=== PATIENT | male | born 1945 | race Caucasian/White ===

== ENCOUNTER → 2016-06-29 | Outpatient (CLI) | payer OTHER, MEDICARE ==
[~2016-06-29] MED LIST: AML/5 PO; AMLH550 PO; ASPI81TA28 PO; CLOP1TAB15 PO; GLC/500 PO; GLC500 PO; METO50TA7 PO; NTRGSL/4 UT; OXYC-57 PO; RIVA1TAB4 PO; SILO8CAP PO; SIMV40TA2 PO; URC10 PO; XRL15 PO
--- NOTE | 2016-06-29 13:23 | DIAGNOSTIC IMAGING REPORT ---
KUB CLINICAL HISTORY: N52.9 Impotence, [id number] nephrocalcinosis COMPARISON STUDY: 09/27/2015. FINDINGS: Bilateral nephrocalcinosis essentially unchanged prior study. No significant paravertebral calcifications. Several pelvic vascular calcifications unchanged. Considerable degenerative change of the hips bilaterally. This is similar. IMPRESSION: Left and to a lesser extent right-sided nephrocalcinosis. No change from the prior study. Unchanging significant degenerative change of the hips Electronically signed by: Kendall Anand M.D. 06/29/2016 1:22 PM Dictated Date/Time: 06/29/2016 1:21 PM
[2016-06-29 14:24] LABS: % FREE PSA 21.7 %; FREE PSA 1.92 ng/ml; PROSTATE SPECIFIC ANTIGEN 8.86 ng/ml (0.000-4.000)
--- NOTE | 2016-07-04 06:33 | CODING QUERY MEDICAL NECESSITY ---
SUPPORTING DIAGNOSIS NEEDED Dr. Haines, A supporting diagnosis is required for the test/procedure performed on this patient in order for us to be reimbursed by the patient's insurance. Please provide a supporting diagnosis for the following test/procedure listed below next to the test name along with your signature. *If there is no additional diagnosis for this patient that would support the following test/procedure please document that below next to the test/procedure. Test(s)/Procedure(s) that require a supporting diagnosis: * [id number] PSA DIAGNOSIS: DATE OF SERVICE: 06/29/16 Provider Signature: Date: Thank you Evgeny Warren [facility] Information Management Once completed, please kindly fax back to [phone] For questions please call [phone]
== END | disposition home or self-care (01) ==
LOC: C.RAD 12:39
PROVIDERS: ATTEND Urology
DX: N52.9 Male erectile dysfunction, unspecified (principal); E83.59 Other disorders of calcium metabolism; N29 Other disorders of kidney and ureter in diseases classified elsewhere; R97.20 Elevated prostate specific antigen [PSA]; N40.1 Benign prostatic hyperplasia with lower urinary tract symptoms

== ENCOUNTER 2016-10-09 17:09 | Inpatient (IN) | payer OTHER, MEDICARE ==
[~2016-10-09] VITALS: Ht 165.1 cm; Wt 75.4 kg
[~2016-10-09 17:09] MED LIST changes: -AML/5 PO; -ASPI81TA28 PO; -GLC/500 PO; -OXYC-57 PO; -RIVA1TAB4 PO; -SILO8CAP PO; -URC10 PO; -XRL15 PO
[2016-10-09 17:46] LABS: BASO % 0.2 %; BASO ABS # 0.01 K/uL (0-0.2); COMPLETE YES; EOS % 1.5 %; HEMATOCRIT 41.2 % (42-52); IG% 0.2 %; LYMPH % 19.5 %; LYMPH ABS # 1.02 K/uL (1.2-3.4); MEAN CELL VOLUME 85.7 fL (80-100); MEAN CORPUSCULAR HEMOGLOBIN 29.5 pg (25-34); MEAN CORPUSCULAR HGB CONC 34.5 g/dl (32-36); MONO % 8.6 %; PLATELET COUNT 180 K/uL (130-400); RED BLOOD COUNT 4.81 M/uL (4.7-6.1); WHITE BLOOD COUNT 5.22 K/uL (4.8-10.8)
[2016-10-09 17:47] LABS: ISTAT CREATININE 0.9 mg/dl (0.6-1.3); ISTAT HEMOGLOBIN 13.9 g/dl (14.0-18.0); ISTAT IONIZED CALCIUM 1.16 mmol/l (1.12-1.32)
[2016-10-09 17:54] LABS: POINT OF CARE TROPONIN I < 0.030 ng/ml (0-0.045)
[2016-10-09] MEDS ORDERED: SODIUM CHLORIDE 0.9% 1000ML 1,000 ML IV STA (17:55)
[2016-10-09 17:57] LABS: PROTHROMBIN TIME (PATIENT) 10.2 SECONDS (9.0-12.0)
[2016-10-09] MEDS ORDERED: OPTIRAY 320 IV PRN (18:00)
--- NOTE | 2016-10-09 18:04 | EMERGENCY ROOM VISIT NOTE ---
History Report prepared by Gil: Kanwal Hough Under the Supervision of: Dr. Maryellen Orozco D.O. First contact with patient: 17:13 Chief Complaint: CHEST PAIN Stated Complaint: CHEST PAIN Nursing Triage Summary: triage note Right sided chest pain, worse with inspiration. Sent by PCP for evaluation. History of Present Illness The patient is a 70 year old male who presents to the Emergency Room with complaints of intermittent right chest and rib pain that began 1 week ago. The patient states that his pain is worsened with deep inspiration, but denies any change of pain with position. He states that he has tried taking aspirin and Aleve without relief of his symptoms. The patient describes his pain as a sharp pain. He states that several weeks ago he had a right hip replacement done in the [facility]. The patient states that he has been going to physical therapy since the surgery. He additionally notes a history of a previous [place] with a heart catheterization. The patient states that he consulted his PCP and was sent to the emergency department for further evaluation and treatment. He denies any recent cough, cold, flu-like symptoms, dizziness, diaphoresis, headache, nausea, or vomiting. The patient states that he is on Plavix. Source of History: patient Onset: 1 week ago Position: chest (right), other (right rib) Quality: sharp Timing: intermittent Modifying Factors (Worsening): other (deep inspiration) Associated Symptoms: No headache, No diaphoresis, No cough, No nausea, No vomiting Review of Systems See HPI for pertinent positives & negatives. A total of 10 systems reviewed and were otherwise negative. Past Medical & Surgical Medical Problems: (1) Asthma (2) Diabetes (3) Elevated troponin I level (4) Heart disease (5) Status post right hip replacement Family History Diabetes mellitus Heart disease Kidney stones Social History Smoking Status: Never Smoker Smokeless Tobacco Use: No Alcohol Use: occasionally Marital Status: Housing Status: lives with family Occupation Status: employed Current/Historical Medications Scheduled Amiloride HCl (Amiloride HCl), 5 MG PO DAILY Aspirin (Aspirin Ec), 81 MG PO QPM Clopidogrel (Plavix), 75 MG PO DAILY Metformin Hcl (Glucophage), 500 MG PO BID Metoprolol Succ (Toprol Xl) (Toprol-Xl), 50 MG PO DAILY Nitroglycerin (Nitrostat), 0.4 MG UT PRN Potassium Citrate (Potassium Citrate), 10 MEQ PO QPM Silodosin (Rapaflo), 1 CAP PO QPM Simvastatin (Zocor), 40 MG PO QPM Allergies Coded Allergies: No Known Allergies (Unverified , 10/09/16) Physical Exam Vital Signs Date Time Temp Pulse Resp B/P (MAP) Pulse Ox O2 Delivery O2 Flow Rate FiO2 10/09/16 20:28 84 20 142/82 93 Room Air 10/09/16 20:00 82 20 157/84 94 Room Air 10/09/16 19:07 80 20 142/77 96 Room Air 10/09/16 17:44 83 10/09/16 17:34 86 20 162/85 96 Room Air 10/09/16 17:33 96 Room Air 10/09/16 17:12 36.7 87 16 161/85 97 Room Air Physical Exam GENERAL: alert, well appearing, well nourished, no distress, non-toxic EYE EXAM: normal conjunctiva, PERRL and EOM's grossly intact OROPHARYNX: no exudate, no erythema, lips, buccal mucosa, and tongue normal and mucous membranes are moist NECK: supple, no nuchal rigidity, no adenopathy, non-tender CHEST WALL: No crepitus, no bruising, no stepoff. LUNGS: Clear to auscultation. Normal chest wall mechanics HEART: no murmurs, S1 normal and S2 normal ABDOMEN: abdomen soft, non-tender, normo-active bowel sounds, no masses, no rebound or guarding. BACK: Back is symmetrical on inspection and there is no deformity, no midline tenderness, no CVA tenderness. SKIN: no rashes and no bruising UPPER EXTREMITIES: upper extremities are grossly normal. LOWER EXTREMITIES: Well healed incision on lateral aspect of the right hip from recent surgery. No pitting edema. NEURO EXAM: Normal sensorium, cranial nerves II-XII grossly intact, normal speech, no gross weakness of arms, no gross weakness of legs. Medical Decision & Procedures ER Provider Diagnostic Interpretation: CT:Per my review, radiologist interpretation. CHEST CTA for PULMONARY ARTERIES CT DOSE: 359.33 mGy.cm HISTORY: Atypical chest pain. TECHNIQUE: Multiaxial CT images of the chest were performed following the intravenous administration of contrast to evaluate the pulmonary arteries. Maximal intensity projection images were also obtained. COMPARISON STUDY: Chest CT 07/30/2015. FINDINGS: Normal caliber thoracic aorta with no evidence for dissection. The main pulmonary arteries are patent. There are few small filling defects seen within the segmental branches of the right middle lobe and right lower lobe consistent with pulmonary emboli. Peripheral wedge-shaped consolidation within the lateral segment of the right middle lobe consistent with a pulmonary infarct. Patchy consolidation of the bases of the bilateral lower lobes posteriorly favor atelectasis. There is a small right pleural effusion. No pneumothorax. The central airways are patent. The visualized liver and spleen are unremarkable. Left-sided nephrolithiasis. No mediastinal or hilar lymphadenopathy. IMPRESSION: 1. Pulmonary emboli seen within the segmental branches of the right middle lobe and right lower lobe. There is an associated wedge-shaped consolidation within the right middle lobe consistent with a pulmonary infarct. 2. Small right pleural effusion. 3. Bilateral lower lobe posterior densities favor atelectasis. Electronically signed by: Waldemar Pop M.D. 10/09/2016 7:14 PM Laboratory Results 10/09/16 17:25 Red Blood Count 4.81, Mean Corpuscular Volume 85.7, Mean Corpuscular Hemoglobin 29.5, Mean Corpuscular Hemoglobin Concent 34.5, Mean Platelet Volume 10.0, Neutrophils (%) (Auto) 70.0, Lymphocytes (%) (Auto) 19.5, Monocytes (%) (Auto) 8.6, Eosinophils (%) (Auto) 1.5, Basophils (%) (Auto) 0.2, Neutrophils # (Auto) 3.65, Lymphocytes # (Auto) 1.02, Monocytes # (Auto) 0.45, Eosinophils # (Auto) 0.08, Basophils # (Auto) 0.01 10/09/16 17:25 Test 10/09/16 17:25 10/09/16 17:34 10/09/16 17:35 10/09/16 19:29 White Blood Count 5.22 K/uL (4.8-10.8) Red Blood Count 4.81 M/uL (4.7-6.1) Hemoglobin 14.2 g/dL (14.0-18.0) Hematocrit 41.2 % (42-52) Mean Corpuscular Volume 85.7 fL (80-100) Mean Corpuscular Hemoglobin 29.5 pg (25-34) Mean Corpuscular Hemoglobin Concent 34.5 g/dl (32-36) Platelet Count 180 K/uL (130-400) Mean Platelet Volume 10.0 fL (7.4-10.4) Neutrophils (%) (Auto) 70.0 % Lymphocytes (%) (Auto) 19.5 % Monocytes (%) (Auto) 8.6 % Eosinophils (%) (Auto) 1.5 % Basophils (%) (Auto) 0.2 % Neutrophils # (Auto) 3.65 K/uL (1.4-6.5) Lymphocytes # (Auto) 1.02 K/uL (1.2-3.4) Monocytes # (Auto) 0.45 K/uL (0.11-0.59) Eosinophils # (Auto) 0.08 K/uL (0-0.5) Basophils # (Auto) 0.01 K/uL (0-0.2) RDW Standard Deviation 42.6 fL (36.4-46.3) RDW Coefficient of Variation 13.6 % (11.5-14.5) Immature Granulocyte % (Auto) 0.2 % Immature Granulocyte # (Auto) 0.01 K/uL (0.00-0.02) Prothrombin Time 10.2 SECONDS (9.0-12.0) Prothromb Time International Ratio 1.0 (0.9-1.1) D-Dimer 1020 ug/L FEU (0-500) Est Creatinine Clear Calc Drug Dose 64.5 ml/min Estimated GFR () 87.8 Estimated GFR (Non- 75.8 BUN/Creatinine Ratio 20.0 (10-20) Calcium Level 8.8 mg/dl (8.5-10.1) Total Bilirubin 0.4 mg/dl (0.2-1) Aspartate Amino Transf (AST/SGOT) 21 U/L (15-37) Alanine Aminotransferase (ALT/SGPT) 31 U/L (12-78) Alkaline Phosphatase 89 U/L (45-117) Pro-B-Type Natriuretic Peptide 206 pg/ml (0-900) Total Protein 7.2 gm/dl (6.4-8.2) Albumin 3.2 gm/dl (3.4-5.0) Globulin 4.0 gm/dl (2.5-4.0) Albumin/Globulin Ratio 0.8 (0.9-2) Lipase 102 U/L (73-393) Bedside Hemoglobin 13.9 g/dl (14.0-18.0) Bedside Hematocrit 41 % (42-52) Bedside D-Dimer > 450 ng/mlFEU (0-450) Bedside Sodium 140 mEq/L (135-144) Bedside Potassium 3.8 mEq/L (3.3-5.0) Bedside Chloride 101 mEq/L (101-112) Bedside Total CO2 28 mEq/l (24-31) Anion Gap 16.0 mmol/L (16-25) Bedside Blood Urea Nitrogen 20 mg/dl (7-18) Bedside Creatinine 0.9 mg/dl (0.6-1.3) Bedside Glucose (other) 89 mg/dl (70-99) Bedside Ionized Calcium (Jesus) 1.16 mmol/l (1.12-1.32) Bedside Troponin I < 0.030 ng/ml (0-0.045) Activated Partial Thromboplast Time 25.9 SECONDS (21.0-31.0) Partial Thromboplastin Ratio 1.0 Lactic Acid Level 0.6 mmol/L (0.4-2.0) Laboratory results per my review. Medications Administered Medications (Trade) Dose Ordered Sig/Flora Route Start Time Stop Time Status Last Admin Dose Admin Sodium Chloride 1,000 ml @ 250 mls/hr Q4H STAT IV 10/09/16 17:55 10/09/16 21:55 DC 10/09/16 17:55 250 MLS/HR Heparin Sodium/ Dextrose (Heparin 25,000 Unit/500ml D5W) 25,000 unit STK-MED ONCE .ROUTE 10/09/16 20:30 10/09/16 20:31 DC 10/09/16 20:30 25,000 UNIT ECG Indication: chest pain Rate (beats per minute): 82 Rhythm: sinus rhythm Findings: Q waves (leads 3 and AVF), no acute ischemic change, no ectopy, other (normal axis, normal intervals, low voltage) ED Course 1723: The patient was evaluated in room A9B. A complete history and physical exam was performed. 1754: Ordered Sodium Chloride 1000 ml @ 250 mls/hr IV. 0: I reevaluated the patient and he is resting comfortably. I discussed the exam findings with him and I discussed the treatment plan. He verbalized complete understanding and agreement. He will be evaluated for further treatment. 1953: I discussed the patients case with KARON Ventura. He will evaluate the patient for further treatment, but would like Dopplers of the lower extremities, and Lovenox started. 2016: After discussion Dr. Mena, the patient was found to have an elevated troponin from the lab, although the point of care troponin initially was negative. It was decided that the Lovenox would be stopped and Heparin would be given. Heparin Sodium/Dextrose 1 ea NA. Pt hemodynamically stable. 2030: Ordered Heparin Sodium Dextrose 77296 unit .route. Medical Decision Differential diagnoses includes but is not limited to acute coronary syndrome, myocardial infarction, pericarditis, pulmonary embolus, aortic dissection, pneumonia, pneumothorax, musculoskeletal, shingles, esophageal. Medication Reconciliation: I attest that I have personally reviewed the patient' s current medication list. Blood pressure screening: Patient was found to have an elevated blood pressure and was referred to their primary doctor for recheck and further treatment. Patient well-appearing here in his head symptoms for several days. Patient hemodynamically stable, initial [id number] troponin negative, EKG without dynamic changes, and dimer elevated. CT angiography revealed multiple PEs with pulmonary infarct. Patient declined pain medication here. Patient admitted to medicine for additional evaluation and initial decision was started on Lovenox, however after lab results and a positive troponin, patient started on a heparin drip. Patient aware of all results and need for close follow-up and additional testing. Patient will need to have cardiology consult given prior history of [place] and stenting concurrent use of antiplatelet and now need for anticoagulation. Dopplers of the patient's lower extremities ordered. No other evidence of concurrent infection, normal renal function noted. Doubt ACS , however given elevated troponin concern for possible right heart strain. Consults Time Called: 1946 Consulting Physician: KARON Ventura Returned Call: 1953 I discussed the patients case with KARON Ventura. He will evaluate the patient for further treatment, but would like Dopplers of the lower extremities, and Lovenox started. Impression Primary Impression: Pulmonary emboli Additional Impressions: Pulmonary infarct Right-sided chest pain Pleuritic chest pain Critical Care I have personally spent greater than 35 minutes of critical care time in the direct management of this patient. This includes bedside care, interpretation of diagnostic studies, and testing, discussion with consultants, patient, and family members, and other required patient management activities. This 35 minutes is in excess of all separately billable procedures. involved systems: cardiovascular, pulmonary Scribe Attestation The scribe's documentation has been prepared under my direction and personally reviewed by me in its entirety. I confirm that the note above accurately reflects all work, treatment, procedures, and medical decision making performed by me. Departure Information Dispostion Being Evaluated By Hospitalist Referrals Maycol Sloan M.D. (PCP) Problem Qualifiers Primary Impression: Pulmonary emboli Pulmonary embolism type: other Chronicity: acute Acute cor pulmonale presence: without acute cor pulmonale Qualified Codes: I26.99 - Other pulmonary embolism without acute cor pulmonale
[2016-10-09 18:10] LABS: CALCIUM 8.8 mg/dl (8.5-10.1); CREATININE 0.99 mg/dl (0.60-1.40); POTASSIUM 3.8 mmol/L (3.5-5.1)
[2016-10-09] MEDS ORDERED: AML/5 PO (18:15)
[2016-10-09] MEDS ORDERED: GLC/500 PO (18:16)
[2016-10-09] MEDS ORDERED: ASPI81TA28 PO (18:18)
[2016-10-09 18:19] LABS: ALB/GLOB RATIO 0.8 (0.9-2)
[2016-10-09] MEDS ORDERED: SILO8CAP PO (18:20)
[2016-10-09] MEDS ORDERED: URC10 PO (18:22)
--- NOTE | 2016-10-09 19:16 | DIAGNOSTIC IMAGING REPORT ---
CHEST CTA for PULMONARY ARTERIES CT DOSE: 359.33 mGy.cm HISTORY: Atypical chest pain. TECHNIQUE: Multiaxial CT images of the chest were performed following the intravenous administration of contrast to evaluate the pulmonary arteries. Maximal intensity projection images were also obtained. COMPARISON STUDY: Chest CT 07/30/2015. FINDINGS: Normal caliber thoracic aorta with no evidence for dissection. The main pulmonary arteries are patent. There are few small filling defects seen within the segmental branches of the right middle lobe and right lower lobe consistent with pulmonary emboli. Peripheral wedge-shaped consolidation within the lateral segment of the right middle lobe consistent with a pulmonary infarct. Patchy consolidation of the bases of the bilateral lower lobes posteriorly favor atelectasis. There is a small right pleural effusion. No pneumothorax. The central airways are patent. The visualized liver and spleen are unremarkable. Left-sided nephrolithiasis. No mediastinal or hilar lymphadenopathy. IMPRESSION: 1. Pulmonary emboli seen within the segmental branches of the right middle lobe and right lower lobe. There is an associated wedge-shaped consolidation within the right middle lobe consistent with a pulmonary infarct. 2. Small right pleural effusion. 3. Bilateral lower lobe posterior densities favor atelectasis. Electronically signed by: Waldemar Pop M.D. 10/09/2016 7:14 PM Dictated Date/Time: 10/09/2016 7:08 PM
[2016-10-09] MEDS ORDERED: ENOXAPARIN 1 MG/KG SQ STA (19:54)
[2016-10-09] MEDS ORDERED: ENOXAPARIN 80 MG/0.8 ML SYR SQ SCH (20:00)
[2016-10-09] MEDS ORDERED: HEPARIN 25000 UNIT/500 ML D5W ONE (20:30)
[2016-10-09] MEDS ORDERED: ACETAMINOPHEN 325 MG TAB PO PRN (21:00)
[2016-10-09] MEDS ORDERED: ONDANSETRON INJ 2 MG/ML 2 ML VIAL IV PRN (21:00)
[2016-10-09] MEDS ORDERED: ZOLPIDEM TARTRATE 5 MG TAB PO PRN (21:00)
[2016-10-09] MEDS ORDERED: SILODOSIN PO SCH (21:00)
[2016-10-09] MEDS ORDERED: NITROGLYCERIN 0.4 MG SL PER TAB CHARGE SL PRN (21:00)
--- NOTE | 2016-10-09 21:14 | History and Physical ---
History & Physical Date & Time of Service: Oct 09, 2016 at 21:01 Chief Complaint: Chest Pain Primary Care Physician: Maycol Sloan M.D. History of Present Illness Source: patient The patient is a 70-year-old male who presents to the emergency department at the referral from his PCP when he complained of intermittent right-sided chest pain and rib cage pain, that worsens with deep inspiration, and that began about one week prior to arrival. He underwent a right total hip arthroplasty in the [facility] [place] several weeks ago, he has been undergoing physical therapy since that time. He reports taking aspirin and Aleve have not helped his chest pain symptoms. 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 He does not have any sick exposures. He does upon questioning report some intermittent muscle cramps in his legs over the past several weeks, but no signs of lower extremity swelling. Past Medical/Surgical History Medical Problems: (1) Asthma Status: Chronic (2) Diabetes Status: Chronic (3) Heart disease Status: Chronic (4) Status post right hip replacement Status: Resolved Family History Diabetes mellitus Heart disease Kidney stones Social History Smoking Status: Never Smoker Smokeless Tobacco Use: No Alcohol Use: none Drug Use: none Marital Status: Housing status: lives with family Occupational Status: employed Multi-Drug Resistant Organisms History of MDRO: No Allergies Coded Allergies: No Known Allergies (Unverified , 10/09/16) Home Medications Scheduled Amiloride HCl (Amiloride HCl), 5 MG PO DAILY Aspirin (Aspirin Ec), 81 MG PO QPM Clopidogrel (Plavix), 75 MG PO DAILY Metformin Hcl (Glucophage), 500 MG PO BID Metoprolol Succ (Toprol Xl) (Toprol-Xl), 50 MG PO DAILY Nitroglycerin (Nitrostat), 0.4 MG UT PRN Potassium Citrate (Potassium Citrate), 10 MEQ PO QPM Silodosin (Rapaflo), 1 CAP PO QPM Simvastatin (Zocor), 40 MG PO QPM Review of Systems The patient denies palpitations, cough, lower extremity swelling, sore throat , fevers, chills, sweats, weight change, fatigue, nausea, vomiting, abdominal pain, pelvic pain, blood in urine or stool, dysuria, urinary frequency or urgency, lightheadedness, dizziness, headache, memory loss, rash, abnormal bruising or bleeding, imbalance, focal or generalized weakness, numbness or tingling in arms or legs, neck pain, night sweats, or allergy symptoms. The review of systems is otherwise negative other than for that already noted above, and at least 10 systems have been reviewed. Physical Exam Vital Signs Date Time Temp Pulse Resp B/P (MAP) Pulse Ox O2 Delivery O2 Flow Rate FiO2 10/09/16 19:07 80 20 142/77 96 Room Air 10/09/16 17:44 83 10/09/16 17:34 86 20 162/85 96 Room Air 10/09/16 17:33 96 Room Air 10/09/16 17:12 36.7 87 16 161/85 97 Room Air The patient is awake, well-developed and adequately nourished, alert and oriented 3, normocephalic and atraumatic, lying in bed and in no acute distress. HEENT--PERRL, EOMI, mucous membranes and oropharynx normal. Neck--supple, no JVD or bruits, thyroid normal, trachea midline, no adenopathy. Heart--normal S1 and S2, no extra beats, no murmurs, rubs or gallops. Lungs--decreased breath sounds at the bases bilaterally, no respiratory distress , no accessory muscle use. Abdomen--normal bowel sounds and soft, nontender and nondistended, no hernias or masses, no organomegaly. Extremities--no cyanosis, clubbing or edema. There are good distal pulses b/l. Dermatologic--normal skin turgor, normal color, warm and dry, no abnormal lymph nodes, no rash. Neurologic--cranial nerves II through XII grossly intact, motor and sensory examination normal. Rheumatologic--normal range of motion, nontender, muscles and joints. Psychiatric--normal affect. Diagnostics Laboratory Results Results Past 24 Hours Test 10/09/16 17:25 10/09/16 17:34 10/09/16 19:29 10/09/16 20:53 Range/Units White Blood Count 5.22 4.8-10.8 K/uL Red Blood Count 4.81 4.7-6.1 M/uL Hemoglobin 14.2 14.0-18.0 g/dL Hematocrit 41.2 42-52 % Mean Corpuscular Volume 85.7 80-100 fL Mean Corpuscular Hemoglobin 29.5 25-34 pg Mean Corpuscular Hemoglobin Concent 34.5 32-36 g/dl Platelet Count 180 130-400 K/uL Mean Platelet Volume 10.0 7.4-10.4 fL Neutrophils (%) (Auto) 70.0 % Lymphocytes (%) (Auto) 19.5 % Monocytes (%) (Auto) 8.6 % Eosinophils (%) (Auto) 1.5 % Basophils (%) (Auto) 0.2 % Neutrophils # (Auto) 3.65 1.4-6.5 K/uL Lymphocytes # (Auto) 1.02 1.2-3.4 K/uL Monocytes # (Auto) 0.45 0.11-0.59 K/uL Eosinophils # (Auto) 0.08 0-0.5 K/uL Basophils # (Auto) 0.01 0-0.2 K/uL RDW Standard Deviation 42.6 36.4-46.3 fL RDW Coefficient of Variation 13.6 11.5-14.5 % Immature Granulocyte % (Auto) 0.2 % Immature Granulocyte # (Auto) 0.01 0.00-0.02 K/uL Prothrombin Time 10.2 9.0-12.0 SECONDS Prothromb Time International Ratio 1.0 0.9-1.1 D-Dimer 1020 0-500 ug/L FEU Sodium Level 139 136-145 mmol/L Potassium Level 3.8 3.5-5.1 mmol/L Chloride Level 104 98-107 mmol/L Carbon Dioxide Level 27 21-32 mmol/L Anion Gap 8.0 16.0 16-25 mmol/L Blood Urea Nitrogen 20 7-18 mg/dl Creatinine 0.99 0.60-1.40 mg/dl Est Creatinine Clear Calc Drug Dose 64.5 ml/min Estimated GFR () 87.8 Estimated GFR (Non- 75.8 BUN/Creatinine Ratio 20.0 10-20 Random Glucose 86 70-99 mg/dl Calcium Level 8.8 8.5-10.1 mg/dl Total Bilirubin 0.4 0.2-1 mg/dl Aspartate Amino Transf (AST/SGOT) 21 15-37 U/L Alanine Aminotransferase (ALT/SGPT) 31 12-78 U/L Alkaline Phosphatase 89 45-117 U/L Troponin I 0.048 0-0.045 ng/ml Pro-B-Type Natriuretic Peptide 206 0-900 pg/ml Total Protein 7.2 6.4-8.2 gm/dl Albumin 3.2 3.4-5.0 gm/dl Globulin 4.0 2.5-4.0 gm/dl Albumin/Globulin Ratio 0.8 0.9-2 Lipase 102 73-393 U/L Bedside Hemoglobin 13.9 14.0-18.0 g/dl Bedside Hematocrit 41 42-52 % Bedside D-Dimer > 450 0-450 ng/mlFEU Bedside Sodium 140 135-144 mEq/L Bedside Potassium 3.8 3.3-5.0 mEq/L Bedside Chloride 101 101-112 mEq/L Bedside Total CO2 28 24-31 mEq/l Bedside Blood Urea Nitrogen 20 7-18 mg/dl Bedside Creatinine 0.9 0.6-1.3 mg/dl Bedside Glucose (other) 89 70-99 mg/dl Bedside Ionized Calcium (Jesus) 1.16 1.12-1.32 mmol/l Bedside Troponin I < 0.030 0-0.045 ng/ml Lactic Acid Level 0.6 0.4-2.0 mmol/L Creatine Kinase MB Ratio 0-3.0 Diagnostic Radiology Patient Name: VANDANA BERMUDEZ Unit Number: [id number] Dictated: 10/09/161907 Transcribed: 10/09/161907 [employer] Printed Date/Time: [~ rep prt dt]/[~ rep prt tm] [~ rep ct labl] - [~ rep ct ivnm] [facility] [place] [address] Dictated: 10/09/161907 Transcribed: 10/09/161907 [employer] Printed Date/Time: [~ rep prt dt]/[~ rep prt tm] [~ rep ct labl] - [~ rep ct ivnm] [~ rep ct add3]] CHEST CTA for PULMONARY ARTERIES CT DOSE: 359.33 mGy.cm HISTORY: Atypical chest pain. TECHNIQUE: Multiaxial CT images of the chest were performed following the intravenous administration of contrast to evaluate the pulmonary arteries. Maximal intensity projection images were also obtained. COMPARISON STUDY: Chest CT 07/30/2015. FINDINGS: Normal caliber thoracic aorta with no evidence for dissection. The main pulmonary arteries are patent. There are few small filling defects seen within the segmental branches of the right middle lobe and right lower lobe consistent with pulmonary emboli. Peripheral wedge-shaped consolidation within the lateral segment of the right middle lobe consistent with a pulmonary infarct. Patchy consolidation of the bases of the bilateral lower lobes posteriorly favor atelectasis. There is a small right pleural effusion. No pneumothorax. The central airways are patent. The visualized liver and spleen are unremarkable. Left-sided nephrolithiasis. No mediastinal or hilar lymphadenopathy. IMPRESSION: 1. Pulmonary emboli seen within the segmental branches of the right middle lobe and right lower lobe. There is an associated wedge-shaped consolidation within the right middle lobe consistent with a pulmonary infarct. 2. Small right pleural effusion. 3. Bilateral lower lobe posterior densities favor atelectasis. Electronically signed by: Waldemar Pop M.D. 10/09/2016 7:14 PM Dictated Date/Time: 10/09/2016 7:08 PM The status of this report is Signed. Draft = Not yet reviewed or approved by Radiologist. Signed = Reviewed and approved by Radiologist. <AttendingPhy></AttendingPhy> <FamilyPhy>Maycol Sloan M.D.</FamilyPhy> < PrimaryPhy>Maycol Sloan M.D.</PrimaryPhy> <UnitNumber>[id number]</UnitNumber> <VisitNumber>[id number]</VisitNumber> <PatientName>VANDANA BERMUDEZ</PatientName> < DateOfBirth>1945</DateOfBirth> <Location>[facility]</Location> <ServiceDate></ServiceDate> <MNE>ESINDI</MNE> <OrderingPhy>Pam Maryellen Rhiannon DO</ OrderingPhy> <OrderingPhyMNE>f rep ord dr romero</OrderingPhyMNE> <DictatingPhyMNE> f rep dict dr romero</DictatingPhyMNE> <CCListMNE>f rep ct heather</CCListMNE> < AdmittingPhyMNE>f pt admit dr romero</AdmittingPhyMNE> <AttendingPhyMNE>f pt attend dr romero</AttendingPhyMNE> <ConsultingPhyMNE>f pt consult dr romero</ConsultingPhyMNE> <FamilyPhyMNE>f pt fam dr romero</FamilyPhyMNE> <OtherPhyMNE>f pt other dr romero</OtherPhyMNE> < PrimaryPhyMNE>f pt prim care dr romero</PrimaryPhyMNE> <ReferringPhyMNE>f pt referring dr romero</ReferringPhyMNE> EKG EKG shows normal sinus rhythm at 82 bpm, new inferior wall ME compared to 2013. There are ST segment depressions in leads V3 greater than V4. Impression Assessment and Plan Right middle lobe and right lower lobe pulmonary embolism/right middle lobe pulmonary infarct--the patient will be admitted to the telemetry unit and will be started on IV heparin standard dose, no bolus, due to additional concerns of right heart strain manifesting as elevated troponin. His pleuritic chest pain has caused decreased inspiratory effort leading to atelectasis bilaterally, and the patient has been encouraged to take deeper breaths, which we will be aided by controlling his pain. CAD/hypertension/elevated troponin/right heart strain secondary to pulmonary emboli and infarcts--the patient will be started on IV heparin as noted. We'll continue aspirin 81 mg by mouth daily, clopidogrel 75 mg by mouth daily, amiloride 5 mg by mouth daily, and metoprolol succinate 50 mg by mouth daily. He'll be followed on telemetry for serial cardiac enzymes, cardiac rhythm monitoring and a 2-D echocardiogram with Dopplers. Diabetes mellitus--hold metformin 500 mg by mouth twice a day, placed on Accu- Cheks before meals and at bedtime with NovoLog coverage. Hypercholesterolemia--continue simvastatin 40 mg by mouth every evening. BPH--formulary interchange for Rapaflo. Level of Care Telemetry Advanced Directives Existing Advance Directive: No Existing Living Will: No Existing Power of Maintenance Director: No Resuscitation Status FULL RESUSCITATION VTE Prophylaxis VTE Risk Assessment Done? Y/N: Yes Risk Level: Moderate Given or contraindicated: Other Anticoagulation (IV heparin standard dose no bolus) Social Service Consult None Apply
[2016-10-09 22:00] VITALS: BP 158/86; PULSE 76; TEMP 36.7; O2SAT 96; Ht 165.1 cm; Wt 75.4 kg
[2016-10-09 22:40] LABS: CKMB/CK RATIO 1.7 (0-3.0)
[2016-10-09 23:22] VITALS: BP 163/80; PULSE 81; TEMP 36.3; O2SAT 97
[2016-10-10] VITALS (8 sets, daily range): BP systolic 130–165; BP diastolic 69–85; PULSE 66–72; TEMP 36.4–36.7; O2SAT 95–98
[2016-10-10] MEDS: SIMVASTATIN 40 MG TAB PO SCH ×2 (00:35→19:39)
[2016-10-10] MEDS: ASPIRIN 81 MG ECTAB PO SCH ×2 (00:35→19:39)
[2016-10-10] MEDS: POTASSIUM CITRATE 10 MEQ TAB PO SCH ×2 (00:35→19:39)
[2016-10-10 02:49] LABS: PARTIAL THROMBOPLASTIN RATIO 1.5; PROTHROMBIN TIME (PATIENT) 10.5 SECONDS (9.0-12.0)
[2016-10-10] MEDS ORDERED: HEPARIN IV BOLUS 5,000 UNIT in SYRINGE 0 ML IV ONE (03:30)
[2016-10-10] MEDS: HEPARIN 25,000 UNIT/500ML D5W 500 ML IV PRN ×2 (04:17→12:37)
[2016-10-10 05:01] LABS: BASO % 0.2 %; BASO ABS # 0.01 K/uL (0-0.2); COMPLETE YES; EOS % 3.1 %; HEMATOCRIT 39.5 % (42-52); IG% 0.2 %; LYMPH % 26.5 %; MEAN CELL VOLUME 86.1 fL (80-100); MEAN CORPUSCULAR HEMOGLOBIN 27.7 pg (25-34); MEAN CORPUSCULAR HGB CONC 32.2 g/dl (32-36); MEAN PLATELET VOLUME 10.2 fL (7.4-10.4); MONO % 8.4 %; NEUT % 61.6 %; PLATELET COUNT 155 K/uL (130-400); RED BLOOD COUNT 4.59 M/uL (4.7-6.1); WHITE BLOOD COUNT 4.53 K/uL (4.8-10.8)
[2016-10-10 05:48] LABS: CKMB/CK RATIO 2.7 (0-3.0); CREATININE 0.65 mg/dl (0.60-1.40); MAGNESIUM 2.2 mg/dl (1.8-2.4)
--- NOTE | 2016-10-10 07:57 | DIAGNOSTIC IMAGING REPORT ---
BILATERAL LOWER EXTREMITY VENOUS DOPPLER CLINICAL HISTORY: Pulmonary emboli. COMPARISON STUDY: No previous studies for comparison. TECHNIQUE: Sonography of the deep venous system of the bilateral lower extremities was performed. Compression and augmentation were evaluated. FINDINGS: The bilateral common femoral, superficial femoral and popliteal veins were compressible. Augmentation was normal. Flow was shown within the deep calf vessels. IMPRESSION: No evidence of deep venous thrombus within the bilateral lower extremities. Electronically signed by: Stan Humphreys M.D. 10/10/2016 7:56 AM Dictated Date/Time: 10/10/2016 7:55 AM
[2016-10-10] MEDS ORDERED: NURSING VERBAL MED ORDER ONE (08:15)
[2016-10-10] MEDS ORDERED: CLOPIDOGREL BISULFATE 75 MG TAB PO SCH (09:00)
[2016-10-10] MEDS ORDERED: METOPROLOL SUCC 50MG EXT REL TAB PO SCH (09:00)
[2016-10-10] MEDS ORDERED: AMILORIDE HCL 5 MG TAB PO SCH (09:00)
--- NOTE | 2016-10-10 09:40 | Clinical Documentation Query ---
CLINICAL DOCUMENTATION QUERY 70 year old male RML and RUL PE's with pulmonary infarct. In your clinical opinion is this patient being managed for: (x ) PE WITH acute right heart strain by elevated troponin's representing right heart strain treated with O2, Heparin gtt, Echo, & Cardiology consult ( ) Other explanation of clinical findings (Please Explain) ( ) Unable to determine (Please Define) ( ) Need to Discuss ( ) Not Agree The medical record reflects the following clinical findings, treatment, and risk factors. Clinical Indicators: As above. Troponin's 0.048, 0.046, 0.061. H&P stating, "CAD/hypertension/elevated troponin/right heart strain secondary to pulmonary emboli and infarcts." Treatment: Heparin gtt, Echo, Cardiology consult, Risk Factors: PE Please clarify and document your clinical opinion in the progress notes and discharge summary. Terms such as "probable", "suspected", "likely", "questionable", "possible", or "still to be ruled out" are acceptable. IF IN AGREEMENT, YOU MUST DOCUMENT ABOVE DIAGNOSTIC STATEMENT IN DAILY PROGRESS NOTES AND DISCHARGE SUMMARY. This document is not part of the patient's record. Thank You, Harjeet Avila, RN [phone]
--- NOTE | 2016-10-10 11:23 | Hospitalist Progress Note ---
Hospitalist Progress Note Date of Service Oct 10, 2016. Subjective Pt evaluation today including: conversation w/ patient, physical exam, chart review, lab review, review of studies, review of inpatient medication list Voiding: no voiding problems, no incontinence Patient states he is feeling well. He is eating and drinking OK. Patient denies any fever, chills, sweats, lightheadedness, dizziness, vision changes, CP, palpitations, edema, SOB, wheezing, cough, abdominal pain, nausea, vomiting, diarrhea, urinary symptoms, melena, numbness/tingling, weakness, muscle/joint pain, anxiety/depression, active bleeding, or new skin discoloration/changes. Medications Current Inpatient Medications Medications (Trade) Dose Ordered Sig/Flora Route Start Time Stop Time Status Last Admin Dose Admin Ioversol (Optiray 320) 100 ml UD PRN IV 10/09/16 18:00 10/13/16 17:59 Acetaminophen (Tylenol Tab) 650 mg Q4H PRN PO 10/09/16 21:00 11/08/16 20:59 Zolpidem Tartrate (Ambien Tab) 5 mg HSZ PRN PO 10/09/16 21:00 11/08/16 20:59 Nitroglycerin (Nitrostat Tab) 0.4 mg UD PRN SL 10/09/16 21:00 11/08/16 20:59 Ondansetron HCl (Zofran Inj) 4 mg Q6H PRN IV 10/09/16 21:00 11/08/16 20:59 Aspirin (Ecotrin Tab) 81 mg QPM PO 10/09/16 21:00 11/08/16 20:59 10/10/16 00:35 81 MG Clopidogrel Bisulfate (plAVix TAB) 75 mg DAILY PO 10/10/16 09:00 11/09/16 08:59 10/10/16 07:59 75 MG Metoprolol Succinate (Toprol Xl Tab) 50 mg DAILY PO 10/10/16 09:00 11/09/16 08:59 10/10/16 07:59 50 MG Potassium Citrate (Urocit-K Tab) 10 meq QPM PO 10/09/16 21:00 11/08/16 20:59 10/10/16 00:35 10 MEQ Simvastatin (Zocor Tab) 40 mg QPM PO 10/09/16 21:00 11/08/16 20:59 10/10/16 00:35 40 MG Amiloride HCl (Amiloride HCl) 5 mg DAILY PO 10/10/16 09:00 11/09/16 08:59 10/10/16 08:01 5 MG Heparin Sodium/ Dextrose 500 ml @ 29 mls/hr [id number] PRN IV 10/09/16 22:00 11/08/16 21:59 10/10/16 04:17 29 MLS/HR Miscellaneous Information (Order Awaiting Action) 1 ea QS N/A 10/10/16 00:00 11/09/16 00:00 Objective Vital Signs Date Time Temp Pulse Resp B/P (MAP) Pulse Ox O2 Delivery O2 Flow Rate FiO2 10/10/16 08:00 Room Air 10/10/16 07:35 36.7 72 20 165/85 (111) 95 10/10/16 04:20 97 Room Air 10/10/16 04:11 36.7 68 20 135/75 (95) 96 Room Air 10/10/16 00:10 97 Room Air 10/10/16 00:00 96 Room Air 10/09/16 23:22 36.3 81 20 163/80 (107) 97 Room Air 10/09/16 22:00 36.7 76 18 158/86 96 Room Air 10/09/16 21:36 79 20 145/81 95 10/09/16 21:01 76 20 144/85 96 Room Air 10/09/16 20:28 84 20 142/82 93 Room Air 10/09/16 20:00 82 20 157/84 94 Room Air 10/09/16 19:07 80 20 142/77 96 Room Air 10/09/16 17:44 83 10/09/16 17:34 86 20 162/85 96 Room Air 10/09/16 17:33 96 Room Air 10/09/16 17:12 36.7 87 16 161/85 97 Room Air Physical Exam General Appearance: WD/WN, no apparent distress Eyes: normal inspection, PERRL ENT: hearing grossly normal Neck: supple Respiratory/Chest: lungs clear, no respiratory distress, no accessory muscle use, + decreased breath sounds (at bilateral lung bases ) Cardiovascular: regular rate, rhythm Abdomen: normal bowel sounds, non tender, soft Extremities: no pedal edema, no calf tenderness Neurologic/Psychiatric: alert, normal mood/affect, oriented x 3 Skin: normal color, warm/dry, no rash Laboratory Results Last 24 Hours Test 10/09/16 17:25 10/09/16 17:34 10/09/16 17:35 10/09/16 19:29 White Blood Count 5.22 K/uL Red Blood Count 4.81 M/uL Hemoglobin 14.2 g/dL Hematocrit 41.2 % Mean Corpuscular Volume 85.7 fL Mean Corpuscular Hemoglobin 29.5 pg Mean Corpuscular Hemoglobin Concent 34.5 g/dl Platelet Count 180 K/uL Mean Platelet Volume 10.0 fL Neutrophils (%) (Auto) 70.0 % Lymphocytes (%) (Auto) 19.5 % Monocytes (%) (Auto) 8.6 % Eosinophils (%) (Auto) 1.5 % Basophils (%) (Auto) 0.2 % Neutrophils # (Auto) 3.65 K/uL Lymphocytes # (Auto) 1.02 K/uL Monocytes # (Auto) 0.45 K/uL Eosinophils # (Auto) 0.08 K/uL Basophils # (Auto) 0.01 K/uL RDW Standard Deviation 42.6 fL RDW Coefficient of Variation 13.6 % Immature Granulocyte % (Auto) 0.2 % Immature Granulocyte # (Auto) 0.01 K/uL Prothrombin Time 10.2 SECONDS Prothromb Time International Ratio 1.0 D-Dimer 1020 ug/L FEU Sodium Level 139 mmol/L Potassium Level 3.8 mmol/L Chloride Level 104 mmol/L Carbon Dioxide Level 27 mmol/L Anion Gap 8.0 mmol/L 16.0 mmol/L Blood Urea Nitrogen 20 mg/dl Creatinine 0.99 mg/dl Est Creatinine Clear Calc Drug Dose 64.5 ml/min Estimated GFR () 87.8 Estimated GFR (Non- 75.8 BUN/Creatinine Ratio 20.0 Random Glucose 86 mg/dl Calcium Level 8.8 mg/dl Total Bilirubin 0.4 mg/dl Aspartate Amino Transf (AST/SGOT) 21 U/L Alanine Aminotransferase (ALT/SGPT) 31 U/L Alkaline Phosphatase 89 U/L Troponin I 0.048 ng/ml Pro-B-Type Natriuretic Peptide 206 pg/ml Total Protein 7.2 gm/dl Albumin 3.2 gm/dl Globulin 4.0 gm/dl Albumin/Globulin Ratio 0.8 Lipase 102 U/L Bedside Hemoglobin 13.9 g/dl Bedside Hematocrit 41 % Bedside D-Dimer > 450 ng/mlFEU Bedside Sodium 140 mEq/L Bedside Potassium 3.8 mEq/L Bedside Chloride 101 mEq/L Bedside Total CO2 28 mEq/l Bedside Blood Urea Nitrogen 20 mg/dl Bedside Creatinine 0.9 mg/dl Bedside Glucose (other) 89 mg/dl Bedside Ionized Calcium (Jesus) 1.16 mmol/l Bedside Troponin I < 0.030 ng/ml Activated Partial Thromboplast Time 25.9 SECONDS Partial Thromboplastin Ratio 1.0 Lactic Acid Level 0.6 mmol/L Test 10/09/16 21:24 10/10/16 02:30 10/10/16 04:45 10/10/16 10:48 Total Creatine Kinase 54 U/L 48 U/L Creatine Kinase MB 0.9 ng/ml 1.3 ng/ml Creatine Kinase MB Ratio 1.7 2.7 Troponin I 0.046 ng/ml 0.061 ng/ml Prothrombin Time 10.5 SECONDS Prothromb Time International Ratio 1.0 Activated Partial Thromboplast Time 39.2 SECONDS Partial Thromboplastin Ratio 1.5 White Blood Count 4.53 K/uL Red Blood Count 4.59 M/uL Hemoglobin 12.7 g/dL Hematocrit 39.5 % Mean Corpuscular Volume 86.1 fL Mean Corpuscular Hemoglobin 27.7 pg Mean Corpuscular Hemoglobin Concent 32.2 g/dl Platelet Count 155 K/uL Mean Platelet Volume 10.2 fL Neutrophils (%) (Auto) 61.6 % Lymphocytes (%) (Auto) 26.5 % Monocytes (%) (Auto) 8.4 % Eosinophils (%) (Auto) 3.1 % Basophils (%) (Auto) 0.2 % Neutrophils # (Auto) 2.79 K/uL Lymphocytes # (Auto) 1.20 K/uL Monocytes # (Auto) 0.38 K/uL Eosinophils # (Auto) 0.14 K/uL Basophils # (Auto) 0.01 K/uL RDW Standard Deviation 42.9 fL RDW Coefficient of Variation 13.6 % Immature Granulocyte % (Auto) 0.2 % Immature Granulocyte # (Auto) 0.01 K/uL Sodium Level 142 mmol/L Potassium Level 4.0 mmol/L Chloride Level 107 mmol/L Carbon Dioxide Level 29 mmol/L Anion Gap 6.0 mmol/L Blood Urea Nitrogen 18 mg/dl Creatinine 0.65 mg/dl Est Creatinine Clear Calc Drug Dose 97.4 ml/min Estimated GFR () 112.7 Estimated GFR (Non- 97.2 BUN/Creatinine Ratio 28.0 Random Glucose 110 mg/dl Magnesium Level 2.2 mg/dl Assessment and Plan The patient is a 70-year-old male who presents to the emergency department at the referral from his PCP when he complained of intermittent right-sided chest pain and rib cage pain, that worsens with deep inspiration, and that began about one week prior to arrival. He underwent a right total hip arthroplasty in the [facility] [place][Note 2] several weeks ago, he has been undergoing physical therapy since that time. Right middle lobe and right lower lobe pulmonary embolism/right middle lobe pulmonary infarct/elevated troponin/right heart strain secondary to pulmonary emboli and infarcts: - Admitted to [facility] for cardiac monitoring- no acute events - Trend cardiac enzymes - Continue Nitrostat PRN - IV Heparin standard dose -- Discussed w/ patient about transitioning to oral anticoagulation- prefers novel agent vs Coumadin -- d/c Heparin- begin Xarelto 15 mg PO BID x21 days, then 20 mg daily-- start 3-4 hours after d/cing Heparin - Venous Doppler- No evidence of deep venous thrombus within the bilateral lower extremities - Continue ASA 81 mg daily and Plavix 75 mg daily - ECHO pending - Consult cardiology, appreciate recommendations- follows w/ Dr. Du CAD s/p stent placement/HTN: Continue ASA 81 mg daily, Plavix 75 mg daily, Amiloride 5 mg daily, Potassium citrate 10 mEq daily, Metoprolol succinate 50 mg daily Diabetes mellitus: - Hold Metformin 500 mg BID - BSG ACHS w/ SSI Hypercholesterolemia: Continue Simvastatin 40 mg HS BPH: Rapaflo 8 mg HS DVT prophylaxis: IV Heparin Code Status: LEVEL I, FULL Dispo: From home- no discharge needs anticipated
[2016-10-10 11:28] LABS: PARTIAL THROMBOPLASTIN RATIO 2.2
[2016-10-10 12:57] LABS: CALCIUM 8.4 mg/dl (8.5-10.1)
[2016-10-10] MEDS ORDERED: XRL15 PO (13:33)
[2016-10-10 13:35] LABS: CKMB/CK RATIO 2.2 (0-3.0)
--- NOTE | 2016-10-10 13:38 | Discharge Instructions ---
Discharge Instructions Date of Service Oct 10, 2016. Admission Reason for Admission: Elevated Troponin I Level, Pulmonary Infarct Discharge Discharge Diagnosis / Problem: (1) Pulmonary emboli (2) Pulmonary infarct VTE Date & Time Date of VTE Diagnosis: Oct 09, 2016 Time of VTE Diagnosis: 19:00 Discharge Goals Goal(s): Decrease discomfort, Learn about illness, Diagnostic testing, Therapeutic intervention, Prevent Disease Progression Activity Recommendations Activity Limitations: resume your previous activity . Instructions / Follow-Up Instructions / Follow-Up New medications: 1. Xarelto 15 mg by mouth twice per day for 21 days (last day 10/30/16), then 20 mg by mouth once daily This medication is an anticoagulant (blood thinner) used to treat your pulmonary embolism (lung clot) You will start this medication the morning of 10/11- we have given you the first home dose- you will need to case picker your prescription tomorrow morning/ afternoon Please eat with medication Resume all other regular home medications Please follow-up with your PCP within 5-7 days Please follow-up with Cardiology as instructed by Dr. Du Please follow-up/keep all of your subspecialty appointments Medication Instructions: Your condition is typically treated with an anticoagulant. Anticoagulants will thin your blood to help prevent new clots. * You should take her medication exactly as directed. * Never skip a dose. * Never take a double dose. If you miss a dose, take it as soon as you remember. Call your Primary Care doctor if you experience any of the following: * Swelling or Pain in your leg * Sudden, continuous pain deep in a muscle * Pain that worsens when you are active or when you stand still for a long time * Chest Pain * Sudden Shortness of Breath * Rapid or pounding heart beat * Fainting * Dizziness * Cough with blood or bloody sputum * Sweating more than normal * Bruises * Heavy or uncontrolled bleeding * Blood in your urine, stool or vomit * Black or tarry stools Caring for Your Self at Home: * Avoid sitting, standing or lying down for long periods without moving your legs and feet * When traveling by car, stop to get out and move around at least once every 3 hours * On long airplane, train or bus rides, get up and move around when possible * If you can't get up, wiggle your toes and tighten your calves to keep your blood moving Follow Up: It is important for you to keep your follow up appointments with your medical provider. Current Hospital Diet Patient's current hospital diet: AHA Diet (Heart Healthy) Discharge Diet Recommended Diet: AHA Diet (Heart Healthy), Diabetes Type 2 Diet Procedures Procedures Performed: Chest CTA Venous Doppler Echocardiogram Pending Studies Studies pending at discharge: no Laboratory Results Last 24 Hours Test 10/09/16 17:25 10/09/16 17:34 10/09/16 17:35 10/09/16 19:29 White Blood Count 5.22 K/uL Red Blood Count 4.81 M/uL Hemoglobin 14.2 g/dL Hematocrit 41.2 % Mean Corpuscular Volume 85.7 fL Mean Corpuscular Hemoglobin 29.5 pg Mean Corpuscular Hemoglobin Concent 34.5 g/dl Platelet Count 180 K/uL Mean Platelet Volume 10.0 fL Neutrophils (%) (Auto) 70.0 % Lymphocytes (%) (Auto) 19.5 % Monocytes (%) (Auto) 8.6 % Eosinophils (%) (Auto) 1.5 % Basophils (%) (Auto) 0.2 % Neutrophils # (Auto) 3.65 K/uL Lymphocytes # (Auto) 1.02 K/uL Monocytes # (Auto) 0.45 K/uL Eosinophils # (Auto) 0.08 K/uL Basophils # (Auto) 0.01 K/uL RDW Standard Deviation 42.6 fL RDW Coefficient of Variation 13.6 % Immature Granulocyte % (Auto) 0.2 % Immature Granulocyte # (Auto) 0.01 K/uL Prothrombin Time 10.2 SECONDS Prothromb Time International Ratio 1.0 D-Dimer 1020 ug/L FEU Sodium Level 139 mmol/L Potassium Level 3.8 mmol/L Chloride Level 104 mmol/L Carbon Dioxide Level 27 mmol/L Anion Gap 8.0 mmol/L 16.0 mmol/L Blood Urea Nitrogen 20 mg/dl Creatinine 0.99 mg/dl Est Creatinine Clear Calc Drug Dose 64.5 ml/min Estimated GFR () 87.8 Estimated GFR (Non- 75.8 BUN/Creatinine Ratio 20.0 Random Glucose 86 mg/dl Calcium Level 8.8 mg/dl Total Bilirubin 0.4 mg/dl Aspartate Amino Transf (AST/SGOT) 21 U/L Alanine Aminotransferase (ALT/SGPT) 31 U/L Alkaline Phosphatase 89 U/L Troponin I 0.048 ng/ml Pro-B-Type Natriuretic Peptide 206 pg/ml Total Protein 7.2 gm/dl Albumin 3.2 gm/dl Globulin 4.0 gm/dl Albumin/Globulin Ratio 0.8 Lipase 102 U/L Bedside Hemoglobin 13.9 g/dl Bedside Hematocrit 41 % Bedside D-Dimer > 450 ng/mlFEU Bedside Sodium 140 mEq/L Bedside Potassium 3.8 mEq/L Bedside Chloride 101 mEq/L Bedside Total CO2 28 mEq/l Bedside Blood Urea Nitrogen 20 mg/dl Bedside Creatinine 0.9 mg/dl Bedside Glucose (other) 89 mg/dl Bedside Ionized Calcium (Jesus) 1.16 mmol/l Bedside Troponin I < 0.030 ng/ml Activated Partial Thromboplast Time 25.9 SECONDS Partial Thromboplastin Ratio 1.0 Lactic Acid Level 0.6 mmol/L Test 10/09/16 21:24 10/10/16 02:30 10/10/16 04:45 10/10/16 10:48 Total Creatine Kinase 54 U/L 48 U/L Creatine Kinase MB 0.9 ng/ml 1.3 ng/ml Creatine Kinase MB Ratio 1.7 2.7 Troponin I 0.046 ng/ml 0.061 ng/ml Prothrombin Time 10.5 SECONDS Prothromb Time International Ratio 1.0 Activated Partial Thromboplast Time 39.2 SECONDS 57.5 SECONDS Partial Thromboplastin Ratio 1.5 2.2 White Blood Count 4.53 K/uL Red Blood Count 4.59 M/uL Hemoglobin 12.7 g/dL Hematocrit 39.5 % Mean Corpuscular Volume 86.1 fL Mean Corpuscular Hemoglobin 27.7 pg Mean Corpuscular Hemoglobin Concent 32.2 g/dl Platelet Count 155 K/uL Mean Platelet Volume 10.2 fL Neutrophils (%) (Auto) 61.6 % Lymphocytes (%) (Auto) 26.5 % Monocytes (%) (Auto) 8.4 % Eosinophils (%) (Auto) 3.1 % Basophils (%) (Auto) 0.2 % Neutrophils # (Auto) 2.79 K/uL Lymphocytes # (Auto) 1.20 K/uL Monocytes # (Auto) 0.38 K/uL Eosinophils # (Auto) 0.14 K/uL Basophils # (Auto) 0.01 K/uL RDW Standard Deviation 42.9 fL RDW Coefficient of Variation 13.6 % Immature Granulocyte % (Auto) 0.2 % Immature Granulocyte # (Auto) 0.01 K/uL Sodium Level 142 mmol/L Potassium Level 4.0 mmol/L Chloride Level 107 mmol/L Carbon Dioxide Level 29 mmol/L Anion Gap 6.0 mmol/L Blood Urea Nitrogen 18 mg/dl Creatinine 0.65 mg/dl Est Creatinine Clear Calc Drug Dose 97.4 ml/min Estimated GFR () 112.7 Estimated GFR (Non- 97.2 BUN/Creatinine Ratio 28.0 Random Glucose 110 mg/dl Calcium Level 8.4 mg/dl Magnesium Level 2.2 mg/dl Test 10/10/16 12:38 Total Creatine Kinase 54 U/L Creatine Kinase MB 1.2 ng/ml Creatine Kinase MB Ratio 2.2 Troponin I 0.057 ng/ml Medical Emergencies . Who to Call and When: Medical Emergencies: If at any time you feel your situation is an emergency, please call 911 immediately. . Non-Emergent Contact Non-Emergency issues call your: Primary Care Provider . . "Provider Documentation" section prepared by Henny Lopez. . VTE Core Measure Inpt VTE Proph given/why not?: Other Anticoagulation (IV heparin standard dose no bolus)
--- NOTE | 2016-10-10 13:41 | Discharge Summary ---
Discharge Summary Date of Service Oct 10, 2016. (Henny Lopez PA-C) Discharge Summary Admission Date: Oct 09, 2016 at 20:53 Discharge Date: Oct 10, 2016 Discharge Disposition: Home Principal Diagnosis: PE Problems/Secondary Diagnoses: Right middle lobe and right lower lobe pulmonary embolism right middle lobe pulmonary infarct elevated troponin right heart strain secondary to pulmonary emboli and infarcts CAD s/p stent placement HTN T2DM Hypercholesterolemia BPH Procedures: CHEST CTA for PULMONARY ARTERIES CT DOSE: 359.33 mGy.cm HISTORY: Atypical chest pain. TECHNIQUE: Multiaxial CT images of the chest were performed following the intravenous administration of contrast to evaluate the pulmonary arteries. Maximal intensity projection images were also obtained. COMPARISON STUDY: Chest CT 07/30/2015. FINDINGS: Normal caliber thoracic aorta with no evidence for dissection. The main pulmonary arteries are patent. There are few small filling defects seen within the segmental branches of the right middle lobe and right lower lobe consistent with pulmonary emboli. Peripheral wedge-shaped consolidation within the lateral segment of the right middle lobe consistent with a pulmonary infarct. Patchy consolidation of the bases of the bilateral lower lobes posteriorly favor atelectasis. There is a small right pleural effusion. No pneumothorax. The central airways are patent. The visualized liver and spleen are unremarkable. Left-sided nephrolithiasis. No mediastinal or hilar lymphadenopathy. IMPRESSION: 1. Pulmonary emboli seen within the segmental branches of the right middle lobe and right lower lobe. There is an associated wedge-shaped consolidation within the right middle lobe consistent with a pulmonary infarct. 2. Small right pleural effusion. 3. Bilateral lower lobe posterior densities favor atelectasis. Electronically signed by: Waldemar Pop M.D. 10/09/2016 7:14 PM Dictated Date/Time: 10/09/2016 7:08 PM The status of this report is Signed. Draft = Not yet reviewed or approved by Radiologist. Signed = Reviewed and approved by Radiologist. BILATERAL LOWER EXTREMITY VENOUS DOPPLER CLINICAL HISTORY: Pulmonary emboli. COMPARISON STUDY: No previous studies for comparison. TECHNIQUE: Sonography of the deep venous system of the bilateral lower extremities was performed. Compression and augmentation were evaluated. FINDINGS: The bilateral common femoral, superficial femoral and popliteal veins were compressible. Augmentation was normal. Flow was shown within the deep calf vessels. IMPRESSION: No evidence of deep venous thrombus within the bilateral lower extremities. Electronically signed by: Stan Humphreys M.D. 10/10/2016 7:56 AM Dictated Date/Time: 10/10/2016 7:55 AM The status of this report is Signed. Draft = Not yet reviewed or approved by Radiologist. Signed = Reviewed and approved by Radiologist. ECHOCARDIOGRAM: Interpretation Summary * Name: VANDANA BERMUDEZ Study Date: 10/10/2016 10:20 AM BP: 165/85 mmHg * Patient Location: 2T\S\S241\S\2 HR: 72 * : 1945 (M/d/yyyy) Gender: Male Height: 65 in * Age: 70 yrs Ethnicity: CA Weight: 169 lb * Ordering Physician: Rico Mena * Referring Physician: Maycol Sloan * Performed By: Eugenie Haines * * Reason For Study: PE AND INFARCT, ELEVATED TROP * BSA: 1.8 m2 * -- Conclusions -- * Left ventricular systolic function is normal. * No regional wall motion abnormalities noted. * Ejection Fraction = 60-65%. * There is borderline concentric left ventricular hypertrophy. * Diastolic dysfunction, Grade II (pseudonormalization pattern). * There is mild mitral regurgitation. Procedure Details * A complete two-dimensional transthoracic echocardiogram was performed (2D, M-mode, Doppler and color flow Doppler). Left Ventricle * The left ventricle is normal in size. * There is borderline concentric left ventricular hypertrophy. * Ejection Fraction = 60-65%. * Left ventricular systolic function is normal. * No regional wall motion abnormalities noted. Right Ventricle * The right ventricle is not well visualized. * The right ventricular systolic function is reduced as assessed by tricuspid annular plane systolic excursion (TAPSE) (TAPSE <1.6 cm). Atria * The left atrium is mildly dilated. * Right atrium not well visualized. * There is no evidence of atrial septal defect, but resolution does not allow assessment for a patent foramen ovale. Mitral Valve * The mitral valve is normal in structure and function. * There is no mitral valve stenosis. * There is mild mitral regurgitation. Tricuspid Valve * The tricuspid valve is normal in structure and function. * There is no tricuspid stenosis. * There is trace tricuspid regurgitation. Aortic Valve * The aortic valve is trileaflet. * The aortic valve opens well. * No hemodynamically significant valvular aortic stenosis. * There is no significant aortic regurgitation. Pulmonic Valve * The pulmonary valve is not well seen, but the Doppler examination is normal without significant regurgitation or stenosis. Great Vessels * The aortic root is normal size. Pericardium/Pleural * There is no pericardial effusion. Great Vessels * Normal inferior vena cava size and collapsability with sniff indicates a normal right atrial pressure of 3 mmHg Left Ventricular Diastolic Function * Diastolic dysfunction, Grade II (pseudonormalization pattern). MMode 2D Measurements and Calculations IVSd 1.6 cm IVSs 2.5 cm LVIDd 4.4 cm LVIDs 3.0 cm LVPWd 1.1 cm LVPWs 1.6 cm IVS/LVPW 1.5 FS 33.1 % EDV(Teich) 88.3 ml ESV(Teich) 33.6 ml EF(Teich) 61.9 % EDV(cubed) 85.9 ml ESV(cubed) 25.7 ml EF(cubed) 70.1 % % IVS thick 53.8 % % LVPW thick 51.4 % LV mass(C)d 224.7 grams LV mass(C)dI 122.0 grams/m\S\2 LV mass(C)s 268.8 grams LV mass(C)sI 146.0 grams/m\S\2 CO(Teich) 3.7 l/min CI(Teich) 2.0 l/min/m\S\2 SV(Teich) 54.6 ml SI(Teich) 29.7 ml/m\S\2 CO(cubed) 4.0 l/min CI(cubed) 2.2 l/min/m\S\2 SV(cubed) 60.2 ml SI(cubed) 32.7 ml/m\S\2 ACS 1.6 cm LA dimension 4.2 cm asc Aorta Diam 3.4 cm LVOT diam 1.8 cm LVOT area 2.7 cm\S\2 LVAd ap4 30.8 cm\S\2 LVLd ap4 7.7 cm EDV(MOD-sp4) 101.0 ml LVAs ap4 17.0 cm\S\2 LVLs ap4 6.6 cm ESV(MOD-sp4) 39.0 ml EF(MOD-sp4) 61.4 % LVAd ap2 24.8 cm\S\2 LVLd ap2 7.6 cm EDV(MOD-sp2) 68.0 ml LVAs ap2 13.2 cm\S\2 LVLs ap2 6.3 cm ESV(MOD-sp2) 25.3 ml EF(MOD-sp2) 62.8 % CO(MOD-sp4) 4.2 l/min CI(MOD-sp4) 2.3 l/min/m\S\2 SV(MOD-sp4) 62.0 ml SI(MOD-sp4) 33.7 ml/m\S\2 CO(MOD-sp2) 2.9 l/min CI(MOD-sp2) 1.6 l/min/m\S\2 SV(MOD-sp2) 42.7 ml SI(MOD-sp2) 23.2 ml/m\S\2 Doppler Measurements and Calculations MV E max reta 87.8 cm/sec MV A max reta 82.0 cm/sec MV E/A 1.1 MV dec time 0.20 sec Ao V2 max 125.1 cm/sec Ao max PG 6.3 mmHg Ao max PG (full) 3.8 mmHg KATLIN(V,A) 1.7 cm\S\2 KATLIN(V,D) 1.7 cm\S\2 LV V1 max PG 2.5 mmHg LV V1 max 78.5 cm/sec PA V2 max 72.8 cm/sec PA max PG 2.1 mmHg Consultations: Cardiology (Henny Lopez, PA-C) Medication Reconciliation New Medications: Rivaroxaban (Xarelto) 15 Mg Tab 15 MG PO BID for 21 Days, #42 TABS Continued Medications: Amiloride HCl (Amiloride HCl) 5 Mg Tab 5 MG PO DAILY Aspirin (Aspirin Ec) 81 Mg Tab 81 MG PO QPM Clopidogrel (Plavix) 75 Mg Tab 75 MG PO DAILY, 0 Refills Metformin Hcl (Glucophage) 500 Mg Tab 500 MG PO BID, TAB Metoprolol Succ (Toprol Xl) (Toprol-Xl) 50 Mg Tabcr 50 MG PO DAILY, 0 Refills Nitroglycerin (Nitrostat) 0.4 Mg Tab 0.4 MG UT PRN, 0 Refills Potassium Citrate (Potassium Citrate) 10 Meq Tab 10 MEQ PO QPM Silodosin (Rapaflo) 8 Mg Cap 1 CAP PO QPM for 90 Days, CAP 3 Refills Simvastatin (Zocor) 40 Mg Tab 40 MG PO QPM, 0 Refills Referrals At Discharge Follow up Referrals: Family Practice Referral - Within 1 Week with Maycol Sloan M.D. Discharge Exam Review of Systems: Constitutional: No fever, No chills, No sweats, No weakness, No fatigue Respiratory: No cough, No shortness of breath, No hemoptysis Cardiovascular: No chest pain, No edema, No palpitations Abdomen: No pain, No nausea, No vomiting, No diarrhea, No constipation, No GI bleeding Musculoskeletal: No joint pain, No muscle pain, No swelling, No calf pain Genitourinary - Male: No hematuria, No dysuria Neurologic: No weakness, No numbness/tingling Psychiatric: No depression symptoms, No anxiety Hematologic / Lymphatic: No abnormal bleeding/bruising Integumentary: No rash, No itch, No new/changing skin lesions Physical Exam: General Appearance: WD/WN, no apparent distress Eyes: normal inspection, PERRL ENT: hearing grossly normal Neck: supple Respiratory/Chest: lungs clear, no respiratory distress, no accessory muscle use, + decreased breath sounds (bilateral lung bases ) Cardiovascular: regular rate, rhythm Abdomen / GI: normal bowel sounds, non tender, soft Extremities: no calf tenderness, no pedal edema Neurologic/Psychiatric: alert, normal mood/affect, oriented x 3 Skin: normal color, warm/dry, no rash (Henny Lopez, PA-C) Hospital Course H&P on admission: The patient is a 70-year-old male who presents to the emergency department at the referral from his PCP when he complained of intermittent right-sided chest pain and rib cage pain, that worsens with deep inspiration, and that began about one week prior to arrival. He underwent a right total hip arthroplasty in the [facility] several weeks ago, he has been undergoing physical therapy since that time. He reports taking aspirin and Aleve have not helped his chest pain symptoms. He does have a history of previous [place]. He does not have any sick exposures. He does upon questioning report some intermittent muscle cramps in his legs over the past several weeks, but no signs of lower extremity swelling. Physical Exam Vital Signs Date Time Temp Pulse Resp B/P (MAP) Pulse Ox O2 Delivery O2 Flow Rate FiO2 10/09/16 19:07 80 20 142/77 96 Room Air 10/09/16 17:44 83 10/09/16 17:34 86 20 162/85 96 Room Air 10/09/16 17:33 96 Room Air 10/09/16 17:12 36.7 87 16 161/85 97 Room Air The patient is awake, well-developed and adequately nourished, alert and oriented 3, normocephalic and atraumatic, lying in bed and in no acute distress. HEENT--PERRL, EOMI, mucous membranes and oropharynx normal. Neck--supple, no JVD or bruits, thyroid normal, trachea midline, no adenopathy. Heart--normal S1 and S2, no extra beats, no murmurs, rubs or gallops. Lungs--decreased breath sounds at the bases bilaterally, no respiratory distress , no accessory muscle use. Abdomen--normal bowel sounds and soft, nontender and nondistended, no hernias or masses, no organomegaly. Extremities--no cyanosis, clubbing or edema. There are good distal pulses b/l. Dermatologic--normal skin turgor, normal color, warm and dry, no abnormal lymph nodes, no rash. Neurologic--cranial nerves II through XII grossly intact, motor and sensory examination normal. Rheumatologic--normal range of motion, nontender, muscles and joints. Psychiatric--normal affect. Right middle lobe and right lower lobe pulmonary embolism/right middle lobe pulmonary infarct/elevated troponin/right heart strain secondary to pulmonary emboli and infarcts: - Admitted to [facility] for cardiac monitoring- no acute events - Trend cardiac enzymes - Continue Nitrostat PRN - IV Heparin standard dose -- Discussed w/ patient about transitioning to oral anticoagulation- prefers novel agent vs Coumadin -- d/c Heparin- begin Xarelto 15 mg PO BID x21 days, then 20 mg daily-- start 3-4 hours after d/cing Heparin - Venous Doppler- No evidence of deep venous thrombus within the bilateral lower extremities - Continue ASA 81 mg daily and Plavix 75 mg daily - ECHO - Consult cardiology, appreciate recommendations- follows w/ Dr. Du CAD s/p stent placement/HTN: Continue ASA 81 mg daily, Plavix 75 mg daily, Amiloride 5 mg daily, Potassium citrate 10 mEq daily, Metoprolol succinate 50 mg daily Diabetes mellitus: - Hold Metformin 500 mg BID- resume at discharge - BSG ACHS w/ SSI Hypercholesterolemia: Continue Simvastatin 40 mg HS BPH: Rapaflo 8 mg HS DVT prophylaxis: IV Heparin Code Status: LEVEL I, FULL Dispo: Discharge to home - PCP f/u October 16 Total Time Spent: Greater than 30 minutes This includes examination of the patient, discharge planning, medication reconciliation, and communication with other providers. (Henny Lopez, ALEXIA) I personally examined pt and verified all aldrich points w Erika Lopez PA-C feeling good breathing OK pain improved, feels alright going home extensive discussions on etiology/pathophysiology/clinical findings as well as myths and misconceptions with venous thromboembolic disease. discussed treatment - warfarin vs novel and he opts for novel which i agree. stable for home today, anticipate only 3 months of anticoagulation since provoked PE (hip surgery, travel) but this of course will depend on clinical progress. discussed secondary prevention after off anticoagulation (aggressive proph for any future surgeries or long travel) vitals noted nad breathing unlabored no pallor or icterus PE - provoked, stable. xarelto 15mg BID x 21 days then 20mg daily - f/u PCP R heart strain/elevated troponin - from above small pulmonary infarct - from above LVH - likely longstanding HTN uncontrolled - asked for home monitoring, f/u PCP stable for home (Cosme Osullivan D.Shay.) Discharge Instructions Please refer to the electronic Patient Visit Report (Discharge Instructions) for additional information. (Henny Lopez PA-C) Follow-Up Please follow-up with your PCP within 5-7 days Please follow-up with Cardiology as instructed by Dr. Du Please follow-up/keep all of your subspecialty appointments (Henny Lopez, VERONIKAC) Additional Copies To Maycol Sloan M.D.
[2016-10-10] MEDS ORDERED: NON-FORMULARY MEDICATION SCH (14:30)
--- NOTE | 2016-10-10 14:35 | ECHOCARDIOGRAM REPORT ---
*NOTICE TO RECEIVING [facility] This information is strictly Confidential and protected under [place] law. [place] law prohibits you from making any further disclosure of this information unless further disclosure is expressly permitted by the written consent of the person to whom it pertains or is authorized by law. A general authorization for the release of medical or other information is not sufficient for this purpose. Hospital accepts no responsibility if the information is made available to any other person, INCLUDING THE PATIENT. Interpretation Summary * Name: VANDANA BERMUDEZ Study Date: 10/10/2016 10:20 AM BP: 165/85 mmHg * Patient Location: C.2T\S\S241\S\2 HR: 72 * : 1945 (M/d/yyyy) Gender: Male Height: 65 in * Age: 70 yrs Ethnicity: CA Weight: 169 lb * Ordering Physician: Rico Mena * Referring Physician: Maycol Sloan * Performed By: Eugenie Haines * * Reason For Study: PE AND INFARCT, ELEVATED TROP * BSA: 1.8 m2 * -- Conclusions -- * Left ventricular systolic function is normal. * No regional wall motion abnormalities noted. * Ejection Fraction = 60-65%. * There is borderline concentric left ventricular hypertrophy. * Diastolic dysfunction, Grade II (pseudonormalization pattern). * There is mild mitral regurgitation. Procedure Details * A complete two-dimensional transthoracic echocardiogram was performed (2D, M-mode, Doppler and color flow Doppler). Left Ventricle * The left ventricle is normal in size. * There is borderline concentric left ventricular hypertrophy. * Ejection Fraction = 60-65%. * Left ventricular systolic function is normal. * No regional wall motion abnormalities noted. Right Ventricle * The right ventricle is not well visualized. * The right ventricular systolic function is reduced as assessed by tricuspid annular plane systolic excursion (TAPSE) (TAPSE <1.6 cm). Atria * The left atrium is mildly dilated. * Right atrium not well visualized. * There is no evidence of atrial septal defect, but resolution does not allow assessment for a patent foramen ovale. Mitral Valve * The mitral valve is normal in structure and function. * There is no mitral valve stenosis. * There is mild mitral regurgitation. Tricuspid Valve * The tricuspid valve is normal in structure and function. * There is no tricuspid stenosis. * There is trace tricuspid regurgitation. Aortic Valve * The aortic valve is trileaflet. * The aortic valve opens well. * No hemodynamically significant valvular aortic stenosis. * There is no significant aortic regurgitation. Pulmonic Valve * The pulmonary valve is not well seen, but the Doppler examination is normal without significant regurgitation or stenosis. Great Vessels * The aortic root is normal size. Pericardium/Pleural * There is no pericardial effusion. Great Vessels * Normal inferior vena cava size and collapsability with sniff indicates a normal right atrial pressure of 3 mmHg Left Ventricular Diastolic Function * Diastolic dysfunction, Grade II (pseudonormalization pattern). MMode 2D Measurements and Calculations IVSd 1.6 cm IVSs 2.5 cm LVIDd 4.4 cm LVIDs 3.0 cm LVPWd 1.1 cm LVPWs 1.6 cm IVS/LVPW 1.5 FS 33.1 % EDV(Teich) 88.3 ml ESV(Teich) 33.6 ml EF(Teich) 61.9 % EDV(cubed) 85.9 ml ESV(cubed) 25.7 ml EF(cubed) 70.1 % % IVS thick 53.8 % % LVPW thick 51.4 % LV mass(C)d 224.7 grams LV mass(C)dI 122.0 grams/m\S\2 LV mass(C)s 268.8 grams LV mass(C)sI 146.0 grams/m\S\2 CO(Teich) 3.7 l/min CI(Teich) 2.0 l/min/m\S\2 SV(Teich) 54.6 ml SI(Teich) 29.7 ml/m\S\2 CO(cubed) 4.0 l/min CI(cubed) 2.2 l/min/m\S\2 SV(cubed) 60.2 ml SI(cubed) 32.7 ml/m\S\2 ACS 1.6 cm LA dimension 4.2 cm asc Aorta Diam 3.4 cm LVOT diam 1.8 cm LVOT area 2.7 cm\S\2 LVAd ap4 30.8 cm\S\2 LVLd ap4 7.7 cm EDV(MOD-sp4) 101.0 ml LVAs ap4 17.0 cm\S\2 LVLs ap4 6.6 cm ESV(MOD-sp4) 39.0 ml EF(MOD-sp4) 61.4 % LVAd ap2 24.8 cm\S\2 LVLd ap2 7.6 cm EDV(MOD-sp2) 68.0 ml LVAs ap2 13.2 cm\S\2 LVLs ap2 6.3 cm ESV(MOD-sp2) 25.3 ml EF(MOD-sp2) 62.8 % CO(MOD-sp4) 4.2 l/min CI(MOD-sp4) 2.3 l/min/m\S\2 SV(MOD-sp4) 62.0 ml SI(MOD-sp4) 33.7 ml/m\S\2 CO(MOD-sp2) 2.9 l/min CI(MOD-sp2) 1.6 l/min/m\S\2 SV(MOD-sp2) 42.7 ml SI(MOD-sp2) 23.2 ml/m\S\2 Doppler Measurements and Calculations MV E max reta 87.8 cm/sec MV A max reta 82.0 cm/sec MV E/A 1.1 MV dec time 0.20 sec Ao V2 max 125.1 cm/sec Ao max PG 6.3 mmHg Ao max PG (full) 3.8 mmHg KATLIN(V,A) 1.7 cm\S\2 KATLIN(V,D) 1.7 cm\S\2 LV V1 max PG 2.5 mmHg LV V1 max 78.5 cm/sec PA V2 max 72.8 cm/sec PA max PG 2.1 mmHg
[2016-10-10] MEDS ORDERED: RIVA1TAB4 PO (15:15)
--- NOTE | 2016-10-10 16:30 | Cardiology Consultation ---
Cardiology Consultation Date of Service Oct 10, 2016. Cardiology Consultation Dictation system down. Pt seen, examined, and chart reviewed. Elevated troponin likely secondary to pulmonary emboli. Agree with heparin, convert to coumadin or newer agent. Will follow.
[2016-10-10] MEDS ORDERED: RIVAROXABAN 20 MG TAB PO SCH (17:00)
[2016-10-10] MEDS ORDERED: RIVAROXABAN TAB 15 MG TAB PO SCH ×2 (20:00→20:01)
--- NOTE | 2016-10-11 12:26 | Cardiology Consultation ---
Cardiology Consultation Date of Service Oct 11, 2016. Cardiology Consultation Pertinent history Mr. Crespo is a 70-year-old male well known to me from the outpatient setting who was admitted on the 09 of October with a pulmonary embolism an elevated troponin I level. This consultation was ordered to assist in his cardiac management. The patient's recent history began in June 2016 when he underwent a right total hip replacement in [facility]. The patient underwent 6 weeks of therapy and has just recently returned to the [place]. Approximately 2 days prior to presentation, the patient began to note intermittent right-sided chest discomfort. He noted significant increase in his discomfort with deep breaths. At no time did he experience shortness of breath, nausea, vomiting, diaphoresis, or palpitations. He presented to his primary care office on the day of admission with the above complaints. He was then sent to the emergency room for further evaluation. CT scan of the chest confirmed emboli in the right middle and right lower lobes. The patient's cardiac history began in July 2004 when he presented with an acute anterior wall myocardial infarction complicated by a ventricular fibrillation arrest. He was sent to [facility] where a had an angioplasty of the LAD, and a drug-eluting stent placed in the 1st diagonal branch. He was also found to have a coronary arteriovenous fistula at the time of his cardiac catheterization. The patient does not experience exertional angina pectoris. He further denies syncope, presyncope, PND, orthopnea, palpitations, lower extremity edema, and claudication. Currently, the patient is resting comfortably in bed without complaints. Past medical history 1. Coronary artery disease-see above-July 2004 2. LAD PTCA-July 2004 3. 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 Hypertension 6. Hypercholesterolemia 7. Diabetes mellitus 8. BPH 9. Nephrolithiasis 10. Rosacea 11. Bilateral carpal tunnel syndrome 12. Right THR-June 2016 13. Hemorrhoidectomy Medications 1. Heparin drip 2. Metoprolol tartrate 50 mg daily 3. Amiloride 5 mg daily 4. Zocor 40 mg q.h.s. 5. Aspirin 81 mg daily 6. Plavix 75 mg daily 7. Potassium supplements 8. Prilosec 20 mg daily 9. Rapaflo 8 mg daily Social history , but lives separately from his Quit tobacco over 10 years ago Social alcohol Family history No early coronary artery disease Review of systems A 10 point review of systems was negative except for that described above Physical examination Blood pressure is 130/75 with a regular pulse of 65. Respiratory rate is 18 the patient is afebrile at 36.7 degrees Celsius. HEENT exam is negative Neck is supple with full carotid upstrokes. There are no carotid bruits. Jugular venous pressure is flat at 90 degrees. There is no thyromegaly. Cardiovascular exam reveals a regular rhythm with a normal S1 and S2. No S3, S4 , or murmurs are noted. Lungs are clear without rales, rhonchi, wheezes, or rubs. Abdomen is soft and nontender without bruits. Extremities reveal intact radial artery pulses bilaterally. There is no peripheral edema. Well-healed scar on the right hip Data CBC notes a hemoglobin of 12.7, hematocrit 39.5, white count 4.5, platelet count [id number]. Electrolytes notice sodium of 142, potassium 4.0, chloride 107, bicarb 29, BUN 18, creatinine 0.65, and glucose 110. Initial troponin was 0.046 with a follow-up value of 0.061. First CK is 54 with an MB fraction of 0.9, follow-up CK is 48 with an MB fraction 1.3. EKG notes normal sinus rhythm with an old inferior microinfarction Chest CT notes pulmonary emboli in the right middle and right lower lobes. Lower extremity ultrasound shows no evidence of a DVT air sampling and monitoring is benign Impression Suspect that the minor elevation in troponin, with a normal CK, represents right ventricular strain from the pulmonary emboli. Doubt that this represents coronary ischemia. There is no indication for stress testing or cardiac catheterization at this time. Would simply review his echocardiogram. In terms of his pulmonary emboli, this is likely related to his recent orthopedic procedure. Would convert heparin over to Coumadin or Xarelto. Plan 1. Agree with heparin drip 2. Convert to Coumadin or Xarelto 3. Review echocardiogram. 4. Further recommendations depending on his clinical course.
[2016-10-14] MEDS ORDERED: OXYC-57 PO (11:29)
== END 2016-10-10 19:45 | disposition home or self-care (01) | DRG 176 ==
LOC: C.EDB 17:09 → C.2T 20:53 → ENRESERV 21:18
PROVIDERS: ADMIT Hospitalist; ATTEND Family Medicine
DX: I26.99 Other pulmonary embolism without acute cor pulmonale (principal); R79.89 Other specified abnormal findings of blood chemistry; I25.10 Atherosclerotic heart disease of native coronary artery without angina pectoris; E11.9 Type 2 diabetes mellitus without complications; I10 Essential (primary) hypertension; E78.00 Pure hypercholesterolemia, unspecified; N40.0 Benign prostatic hyperplasia without lower urinary tract symptoms; J45.909 Unspecified asthma, uncomplicated; Z96.641 Presence of right artificial hip joint; Z95.5 Presence of coronary angioplasty implant and graft; Z79.899 Other long term (current) drug therapy; Z79.82 Long term (current) use of aspirin; Z79.02 Long term (current) use of antithrombotics/antiplatelets; Z79.84 Long term (current) use of oral hypoglycemic drugs

== ENCOUNTER 2016-10-13 22:23 | Observation (INO) | payer OTHER, MEDICARE ==
[~2016-10-13] VITALS: Ht 165.1 cm; Wt 74.6 kg
[~2016-10-13 22:23] MED LIST changes: +AML/5 PO; -AMLH550 PO; +ASPI81TA28 PO; +GLC/500 PO; -GLC500 PO; +RIVA1TAB4 PO; +SILO8CAP PO; +URC10 PO; +XRL15 PO
[2016-10-13 23:23] LABS: HEMATOCRIT 44.9 % (42-52); MEAN CORPUSCULAR HEMOGLOBIN 29.7 pg (25-34); PLATELET COUNT 221 K/uL (130-400); RED BLOOD COUNT 5.28 M/uL (4.7-6.1); WHITE BLOOD COUNT 7.62 K/uL (4.8-10.8)
[2016-10-13] MEDS ORDERED: ONDANSETRON INJ 2 MG/ML 2 ML VIAL IV STA (23:23)
[2016-10-13] MEDS ORDERED: HYDROmorphone INJ 1 MG/ML SYR IV STA (23:23)
[2016-10-13] MEDS ORDERED: SODIUM CHLORIDE 0.9% 500ML 500 ML IV STA (23:23)
[2016-10-13] MEDS ORDERED: OPTIRAY 320 IV PRN (23:30)
[2016-10-13 23:37] LABS: INR 1.2 (0.9-1.1); PARTIAL THROMBOPLASTIN RATIO 1.6; PROTHROMBIN TIME (PATIENT) 13.4 SECONDS (9.0-12.0)
[2016-10-13 23:41] LABS: ISTAT CREATININE 0.9 mg/dl (0.6-1.3); ISTAT IONIZED CALCIUM 1.2 mmol/l (1.12-1.32)
--- NOTE | 2016-10-13 23:41 | EMERGENCY ROOM VISIT NOTE ---
History Report prepared by Gil: Alem Garcia Under the Supervision of: Dr. Giovanny Jose M.D. First contact with patient: 23:16 Chief Complaint: CHEST PAIN Stated Complaint: PAIN IN CHEST RIGHT, HERE FOR DVT FEW DAYS AGO Nursing Triage Summary: Patient reports he was here Sunday night and diagnosed with PE's. Patient was discharged home on Xarelto and tonight developed worsening chest pain in right chest radiating to his back. Patient reports pain is worse with deep breath. History of Present Illness The patient is a 70 year old male who presents to the Emergency Room with complaints of constant chest pain beginning 5 hours go. The patient states that he was seen here 3 days ago and was diagnosed with a pulmonary embolism. He reports that he is now having right sided chest pain that radiates into his side. He notes that the pain is sharp and shooting and is worsened with movement and deep breathing. He complains of lower right back pain. The patient denies any cough and history of smoking. He notes that he is on Xarelto and has not missed any doses. Source of History: patient Onset: yesterday Position: chest Quality: sharp Timing: constant Modifying Factors (Worsening): breathing, movement Associated Symptoms: + back pain, No cough Review of Systems See HPI for pertinent positives & negatives. A total of 10 systems reviewed and were otherwise negative. Past Medical & Surgical Medical Problems: (1) Asthma (2) Diabetes (3) Elevated troponin I level (4) Heart disease (5) Pleural effusion (6) Pulmonary infarct (7) Status post right hip replacement Family History Diabetes mellitus Heart disease Kidney stones Social History Smoking Status: Never Smoker Alcohol Use: occasionally Drug Use: none Marital Status: Housing Status: lives with family Occupation Status: employed Current/Historical Medications Scheduled Amiloride HCl (Amiloride HCl), 5 MG PO DAILY Aspirin (Aspirin Ec), 81 MG PO QPM Clopidogrel (Plavix), 75 MG PO DAILY Metformin Hcl (Glucophage), 500 MG PO BID Metoprolol Succ (Toprol Xl) (Toprol-Xl), 50 MG PO DAILY Nitroglycerin (Nitrostat), 0.4 MG UT PRN Potassium Citrate (Potassium Citrate), 10 MEQ PO QPM Rivaroxaban (Xarelto), 15 MG PO BID Rivaroxaban (Xarelto), 20 MG PO DAILY Silodosin (Rapaflo), 1 CAP PO QPM Simvastatin (Zocor), 40 MG PO QPM Allergies Coded Allergies: No Known Allergies (Unverified , 10/13/16) Physical Exam Vital Signs Date Time Temp Pulse Resp B/P (MAP) Pulse Ox O2 Delivery O2 Flow Rate FiO2 10/14/16 01:25 85 18 140/82 94 Room Air 10/14/16 00:02 77 18 137/76 94 Room Air 10/13/16 23:36 83 18 126/92 96 Room Air 10/13/16 22:57 86 18 147/85 96 Room Air 10/13/16 22:53 88 10/13/16 22:39 97 Room Air 10/13/16 22:27 36.6 92 18 145/84 95 Room Air Physical Exam GENERAL: Patient is a healthy-appearing well-nourished male HEAD: Normocephalic atraumatic EYES: Ocular movements intact pupils equal and react to light OROPHARYNX mucous membranes are moist no exudates present no erythema or edema present NECK: Supple no nuchal rigidity CHEST: Good equal expansion LUNGS: Clear and equal to auscultation CARDIAC: Normal S1 and S2 ABDOMEN: Soft nontender no guarding BACK: No CVA tenderness EXTREMITIES: No pain upon palpation normal muscle strength in all groups no clubbing cyanosis or edema NEURO: Patient is following commands and answering questions appropriately. Alert and oriented x3 Cranial Nerves 2-12 grossly intact Medical Decision & Procedures ER Provider Diagnostic Interpretation: Radiology results as stated below per my review and radiologist interpretation: SINGLE VIEW CHEST FINDINGS: An AP, portable, upright chest radiograph is compared to study dated 07/27/2015 and correlated with chest CT dated 10/09/2016. The examination is degraded by portable technique and patient rotation. The heart is enlarged and there is atherosclerotic calcification of the thoracic aorta. The pulmonary vasculature is noncongested. Chronic interstitial thickening is unchanged. There are layering pleural effusions with bibasilar consolidation. No pneumothorax is seen. The skeletal structures are osteopenic. Degenerative change is noted throughout the thoracic spine. IMPRESSION: 1. Cardiomegaly without radiographic evidence of congestive failure. 2. Small pleural effusions with bibasilar consolidation. This likely represents atelectasis. Clinical correlation will be required. Electronically signed by: Tad Miranda M.D. 10/13/2016 11:46 PM Dictated Date/Time: 10/13/2016 11:[address] ANGIOGRAM OF THE CHEST FINDINGS: Thyroid: Imaged portions of the thyroid gland are normal in size and attenuation. Thoracic aorta: There is mild atherosclerotic calcification of the thoracic aorta, which is normal in caliber and demonstrates standard 3-vessel arch anatomy. No dissection is seen. Pulmonary vasculature: The pulmonary trunk is normal in caliber. Several calcification containing mediastinal lymph nodes are observed. There are small filling defects identified within segmental branches in the right middle and right lower lobes. These have modestly 2617. The central pulmonary vessels are clear. Heart: The heart is enlarged and without pericardial effusion. The coronary arteries are densely calcified. Lungs and pleural spaces: There is a small to moderate right pleural effusion with associated atelectasis. This has modestly increased in size from 4 days previously. A wedge shaped subpleural opacity in the right middle lobe is increase in confluence from 10/09/2016 and likely represents a pulmonary infarct. No airspace consolidation is seen typical for pneumonia. The trachea and central airways are clear. Mediastinum: There is no mediastinal lymphadenopathy. Miya: There are calcified hilar lymph nodes. No pathologically enlarged hilar nodes are seen. Axillae: There is no axillary lymphadenopathy. Upper abdomen: There is a small hiatal hernia. Partially visualized upper abdominal viscera is otherwise within normal limits. Skeletal structures: The skeletal structures are osteopenic. Degenerative change is noted throughout the thoracic spine. No lytic or blastic bony lesions are seen. IMPRESSION: 1. There are tiny segmental and subsegmental pulmonary emboli within branches of the right middle and right lower lobe pulmonary arteries. These have modestly decreased in size from study performed 4 days previously. 2. There is a small to moderate right pleural effusion with associated atelectasis. This has modestly increased in size from 10/09/2016. 3. Evolving right middle lobe pulmonary infarct. 4. No airspace consolidation is seen typical for pneumonia. 5. Cardiomegaly. Electronically signed by: Tad Miranda M.D. 10/14/2016 12:09 AM Dictated Date/Time: 10/14/2016 12:00 AM Laboratory Results 10/13/16 22:40 10/13/16 22:40 Test 10/13/16 22:40 10/13/16 23:27 10/13/16 23:28 Red Blood Count 5.28 M/uL (4.7-6.1) Mean Corpuscular Volume 85.0 fL (80-100) Mean Corpuscular Hemoglobin 29.7 pg (25-34) Mean Corpuscular Hemoglobin Concent 35.0 g/dl (32-36) RDW Standard Deviation 41.5 fL (36.4-46.3) RDW Coefficient of Variation 13.4 % (11.5-14.5) Mean Platelet Volume 10.0 fL (7.4-10.4) Prothrombin Time 13.4 SECONDS (9.0-12.0) Prothromb Time International Ratio 1.2 (0.9-1.1) Activated Partial Thromboplast Time 41.7 SECONDS (21.0-31.0) Partial Thromboplastin Ratio 1.6 Est Creatinine Clear Calc Drug Dose 63.7 ml/min Estimated GFR () 87.8 Estimated GFR (Non- 75.8 BUN/Creatinine Ratio 18.8 (10-20) Calcium Level 9.2 mg/dl (8.5-10.1) Total Bilirubin 0.3 mg/dl (0.2-1) Aspartate Amino Transf (AST/SGOT) 21 U/L (15-37) Alanine Aminotransferase (ALT/SGPT) 38 U/L (12-78) Alkaline Phosphatase 113 U/L (45-117) Total Creatine Kinase 63 U/L (39-308) Creatine Kinase MB 1.3 ng/ml (0.5-3.6) Creatine Kinase MB Ratio 2.1 (0-3.0) Total Protein 7.7 gm/dl (6.4-8.2) Albumin 3.6 gm/dl (3.4-5.0) Globulin 4.1 gm/dl (2.5-4.0) Albumin/Globulin Ratio 0.9 (0.9-2) Bedside Troponin I < 0.030 ng/ml (0-0.045) Bedside Hemoglobin 15.0 g/dl (14.0-18.0) Bedside Hematocrit 44 % (42-52) Bedside Sodium 136 mEq/L (135-144) Bedside Potassium 3.3 mEq/L (3.3-5.0) Bedside Chloride 94 mEq/L (101-112) Bedside Total CO2 27 mEq/l (24-31) Anion Gap 19.0 mmol/L (16-25) Bedside Blood Urea Nitrogen 20 mg/dl (7-18) Bedside Creatinine 0.9 mg/dl (0.6-1.3) Bedside Glucose (other) 125 mg/dl (70-99) Bedside Ionized Calcium (Jesus) 1.20 mmol/l (1.12-1.32) Labs reviewed by ED physician. Medications Administered Medications (Trade) Dose Ordered Sig/Flora Route Start Time Stop Time Status Last Admin Dose Admin Hydromorphone HCl (Dilaudid Inj) 1 mg NOW STAT IV 10/13/16 23:23 10/13/16 23:25 DC 10/13/16 23:34 1 MG Ondansetron HCl (Zofran Inj) 4 mg NOW STAT IV 10/13/16 23:23 10/13/16 23:25 DC 10/13/16 23:34 4 MG Sodium Chloride 500 ml @ 999 mls/hr Q31M STAT IV 10/13/16 23:23 10/13/16 23:53 DC 10/13/16 23:33 999 MLS/HR Potassium Chloride (Rosa Isela Ciel Elix) 40 meq NOW STAT PO 10/13/16 23:50 10/13/16 23:51 DC 10/14/16 00:09 40 MEQ Potassium Chloride (Klor-Con M10) 30 meq NOW STAT PO 10/13/16 23:50 10/13/16 23:51 DC 10/13/16 23:50 30 MEQ Hydromorphone HCl (Dilaudid Inj) 1 mg NOW STAT IV 10/14/16 00:24 10/14/16 00:26 DC 10/14/16 00:35 1 MG ECG Indication: SOB/dyspnea Rate (beats per minute): 90 Rhythm: normal sinus Findings: no acute ischemic change, no ectopy, other (old inferior infarct) ED Course 2316: Past medical records reviewed. The patient was evaluated in room A12. A complete history and physical examination was performed. 2323: Sodium Chloride 500 ml @ 999 mls/hr IV, Zofran Inj 4mg IV, Dilaudid Inj 1mg IV. 2350: Potassium Chloride 30meq PO, Potassium Chloride 40meq PO. 0024: Dilaudid Inj 1mg IV. 0028: I discussed the patient's case with Dr. Mean, he has agreed to evaluate the patient for further management and care. 0046: Upon reexamination the patient is doing well. I discussed results and treatment plan with the patient. He verbalizes agreement and understanding. I spoke with Dr. Mena from the [facility] Hospitalist Service. The patient will be evaluated for further management. Medical Decision Differential diagnosis: Etiologies such as infections, reactive airway disease, pneumonia, pneumothorax , COPD, CHF, cardiac ischemia, pulmonary embolism, musculoskeletal, gastrointestinal, as well as others were entertained. Medication Reconciliation: I attest that I have personally reviewed the patient' s current medication list Blood Pressure Screening: Patient was found to have an elevated blood pressure and was referred to their primary care doctor for recheck and further treatment This is a 70-year-old male who presents emergency Department with worsening chest and back pain. He was given 1 mg of Dilaudid and some improvement in his symptoms. His CAT scan of the chest is concerning for growing pleural effusion area and based on the nature the complaint I did discuss the case with the hospitalist service who agreed to admit the patient. Patient and family were in agreement with the treatment plan. Consults Time Called: 13 Consulting Physician: Dr. Mena - [facility] Returned Call: [phone] I discussed the patient's case with Dr. Mena, he has agreed to evaluate the patient for further management and care. Impression Primary Impression: Chest pain Scribe Attestation The scribe's documentation has been prepared under my direction and personally reviewed by me in its entirety. I confirm that the note above accurately reflects all work, treatment, procedures, and medical decision making performed by me. Departure Information Dispostion Being Evaluated By Hospitalist Referrals Maycol Sloan M.D. (PCP) Patient Instructions My [facility] Problem Qualifiers Primary Impression: Chest pain Chest pain type: unspecified Qualified Codes: R07.9 - Chest pain, unspecified
[2016-10-13 23:42] LABS: BUN/CREATININE RATIO 18.8 (10-20); CALCIUM 9.2 mg/dl (8.5-10.1); CREATININE 0.99 mg/dl (0.60-1.40); POTASSIUM 3.3 mmol/L (3.5-5.1)
[2016-10-13 23:46] LABS: ALB/GLOB RATIO 0.9 (0.9-2); CKMB/CK RATIO 2.1 (0-3.0)
--- NOTE | 2016-10-13 23:47 | DIAGNOSTIC IMAGING REPORT ---
SINGLE VIEW CHEST CLINICAL HISTORY: Atypical chest pain. Known pulmonary emboli. FINDINGS: An AP, portable, upright chest radiograph is compared to study dated 07/27/2015 and correlated with chest CT dated 10/09/2016. The examination is degraded by portable technique and patient rotation. The heart is enlarged and there is atherosclerotic calcification of the thoracic aorta. The pulmonary vasculature is noncongested. Chronic interstitial thickening is unchanged. There are layering pleural effusions with bibasilar consolidation. No pneumothorax is seen. The skeletal structures are osteopenic. Degenerative change is noted throughout the thoracic spine. IMPRESSION: 1. Cardiomegaly without radiographic evidence of congestive failure. 2. Small pleural effusions with bibasilar consolidation. This likely represents atelectasis. Clinical correlation will be required. Electronically signed by: Tad Miranda M.D. 10/13/2016 11:46 PM Dictated Date/Time: 10/13/2016 11:44 PM
[2016-10-13] MEDS ORDERED: POTASSIUM CHLORIDE 10 MEQ TABCR PO STA (23:50)
[2016-10-13] MEDS ORDERED: POTASSIUM CHLORIDE 20 MEQ/15 ML UDC PO STA (23:50)
--- NOTE | 2016-10-14 00:10 | DIAGNOSTIC IMAGING REPORT ---
CT ANGIOGRAM OF THE CHEST CLINICAL HISTORY: Atypical chest pain. Known pulmonary embolus seen by CT 4 days previously. COMPARISON STUDY: Chest x-ray dated 10/13/2016. Chest CT scans dated 10/09/2016 and 07/30/2015. TECHNIQUE: Following the IV administration of 91 cc of Optiray 320, CT angiogram of the chest was performed from the upper abdomen to the thoracic inlet utilizing the pulmonary embolus protocol. Images are reviewed in the axial, sagittal, and coronal planes. 3-D MIPS images are created and assessed. IV contrast was administered without complication. CT DOSE: 311.74 mGy.cm FINDINGS: Thyroid: Imaged portions of the thyroid gland are normal in size and attenuation. Thoracic aorta: There is mild atherosclerotic calcification of the thoracic aorta, which is normal in caliber and demonstrates standard 3-vessel arch anatomy. No dissection is seen. Pulmonary vasculature: The pulmonary trunk is normal in caliber. Several calcification containing mediastinal lymph nodes are observed. There are small filling defects identified within segmental branches in the right middle and right lower lobes. These have modestly 2617. The central pulmonary vessels are clear. Heart: The heart is enlarged and without pericardial effusion. The coronary arteries are densely calcified. Lungs and pleural spaces: There is a small to moderate right pleural effusion with associated atelectasis. This has modestly increased in size from 4 days previously. A wedge shaped subpleural opacity in the right middle lobe is increase in confluence from 10/09/2016 and likely represents a pulmonary infarct. No airspace consolidation is seen typical for pneumonia. The trachea and central airways are clear. Mediastinum: There is no mediastinal lymphadenopathy. Miya: There are calcified hilar lymph nodes. No pathologically enlarged hilar nodes are seen. Axillae: There is no axillary lymphadenopathy. Upper abdomen: There is a small hiatal hernia. Partially visualized upper abdominal viscera is otherwise within normal limits. Skeletal structures: The skeletal structures are osteopenic. Degenerative change is noted throughout the thoracic spine. No lytic or blastic bony lesions are seen. IMPRESSION: 1. There are tiny segmental and subsegmental pulmonary emboli within branches of the right middle and right lower lobe pulmonary arteries. These have modestly decreased in size from study performed 4 days previously. 2. There is a small to moderate right pleural effusion with associated atelectasis. This has modestly increased in size from 10/09/2016. 3. Evolving right middle lobe pulmonary infarct. 4. No airspace consolidation is seen typical for pneumonia. 5. Cardiomegaly. Electronically signed by: Tad Miranda M.D. 10/14/2016 12:09 AM Dictated Date/Time: 10/14/2016 12:00 AM
[2016-10-14] MEDS ORDERED: HYDROmorphone INJ 1 MG/ML SYR IV STA (00:24)
[2016-10-14] MEDS ORDERED: HYDROmorphone INJ 0.5 MG/0.5 ML SYR IV PRN (01:45)
[2016-10-14] MEDS ORDERED: NITROGLYCERIN 0.4 MG SL PER TAB CHARGE SL PRN (01:45)
[2016-10-14] MEDS ORDERED: HYDROmorphone INJ 1 MG/ML SYR IV PRN (01:45)
[2016-10-14] MEDS ORDERED: ACETAMINOPHEN 325 MG TAB PO PRN (01:45)
[2016-10-14] MEDS ORDERED: ZOLPIDEM TARTRATE 5 MG TAB PO PRN (01:45)
[2016-10-14] MEDS ORDERED: ONDANSETRON INJ 2 MG/ML 2 ML VIAL IV PRN (01:45)
[2016-10-14 02:10] VITALS: BP 136/87; PULSE 82; TEMP 36.6; O2SAT 96; Ht 165.1 cm; Wt 74.6 kg
[2016-10-14] MEDS ORDERED: IPRATROPIUM BROMIDE NEB SOLN 0.02% 2.5 ML VIAL INH PRN (02:15)
[2016-10-14] MEDS ORDERED: LEVALBUTEROL 1.25MG/0.5ML NEB INH PRN (02:15)
[2016-10-14] MEDS ORDERED: IV FLUIDS COMPLETED PRN (02:30)
[2016-10-14] MEDS: LEVALBUTEROL 1.25MG/0.5ML NEB INH SCH ×2 (03:00→07:29)
[2016-10-14] MEDS ORDERED: LEVALBUTEROL/IPRATROPIUM NEB INH SCH (03:00)
[2016-10-14] MEDS: IPRATROPIUM BROMIDE NEB SOLN 0.02% 2.5 ML VIAL INH SCH ×2 (03:00→07:29)
[2016-10-14 04:33] VITALS: BP 148/81; PULSE 76; TEMP 36.7; O2SAT 95
--- NOTE | 2016-10-14 05:23 | History and Physical ---
History & Physical Date & Time of Service: Oct 14, 2016 at 05:10. The patient was examined on 10/13/2016 Chief Complaint: Pleural Effusion,Pulmonary Infarct Primary Care Physician: Maycol Sloan M.D. History of Present Illness Source: patient, spouse The patient is a 70-year-old male who was recently admitted on October 09 through October 10 for bilateral pulmonary emboli and right middle lobe pulmonary infarct. Upon discharge to home, he resumed his regular activity, including going to work, and developed more significant right-sided chest pain that radiated upward and shortness of breath, he became concerned, and return to the emergency department for assessment. He has been taking his Xarelto as directed , and reports not missing any doses. Past Medical/Surgical History Medical Problems: (1) Asthma Status: Chronic (2) Diabetes Status: Chronic (3) Heart disease Status: Chronic (4) Status post right hip replacement Status: Resolved Family History Diabetes mellitus Heart disease Kidney stones Social History Smoking Status: Never Smoker Smokeless Tobacco Use: No Alcohol Use: none Drug Use: none Marital Status: Housing status: lives with family Occupational Status: employed Multi-Drug Resistant Organisms History of MDRO: No Allergies Coded Allergies: No Known Allergies (Unverified , 10/13/16) Home Medications Scheduled Amiloride HCl (Amiloride HCl), 5 MG PO DAILY Aspirin (Aspirin Ec), 81 MG PO QPM Clopidogrel (Plavix), 75 MG PO DAILY Metformin Hcl (Glucophage), 500 MG PO BID Metoprolol Succ (Toprol Xl) (Toprol-Xl), 50 MG PO DAILY Nitroglycerin (Nitrostat), 0.4 MG UT PRN Potassium Citrate (Potassium Citrate), 10 MEQ PO QPM Rivaroxaban (Xarelto), 15 MG PO BID Rivaroxaban (Xarelto), 20 MG PO DAILY Silodosin (Rapaflo), 1 CAP PO QPM Simvastatin (Zocor), 40 MG PO QPM Review of Systems The patient denies palpitations, lower extremity swelling, sore throat, fevers , chills, sweats, weight change, fatigue, nausea, vomiting, abdominal pain, pelvic pain, blood in urine or stool, dysuria, urinary frequency or urgency, lightheadedness, dizziness, headache, memory loss, rash, abnormal bruising or bleeding, imbalance, focal or generalized weakness, numbness or tingling in arms or legs, arthralgias or myalgias, night sweats. The review of systems is otherwise negative other than for that already noted above, and at least 10 systems have been reviewed. Physical Exam Vital Signs Date Time Temp Pulse Resp B/P (MAP) Pulse Ox O2 Delivery O2 Flow Rate FiO2 10/14/16 04:33 36.7 76 17 148/81 (103) 95 Room Air 10/14/16 04:00 Room Air 10/14/16 02:10 36.6 82 18 136/87 96 Room Air 10/14/16 01:53 88 20 139/82 92 10/14/16 01:25 85 18 140/82 94 Room Air 10/14/16 00:02 77 18 137/76 94 Room Air 10/13/16 23:36 83 18 126/92 96 Room Air 10/13/16 22:57 86 18 147/85 96 Room Air 10/13/16 22:53 88 10/13/16 22:39 97 Room Air 10/13/16 22:27 36.6 92 18 145/84 95 Room Air The patient is awake, well-developed and adequately nourished, alert and oriented 3, normocephalic and atraumatic, lying in bed and in no acute distress. HEENT--PERRL, EOMI, mucous membranes and oropharynx normal. Neck--supple, no JVD or bruits, thyroid normal, trachea midline, no adenopathy. Heart--normal S1 and S2, no extra beats, no murmurs, rubs or gallops. Lungs--few crackles at the bases bilaterally, splinting of diaphragm excursion secondary to pain. Abdomen--normal bowel sounds and soft, nontender and nondistended, no hernias or masses, no organomegaly. Extremities--no cyanosis, clubbing or edema. There are good distal pulses b/l. Dermatologic--normal skin turgor, normal color, warm and dry, no abnormal lymph nodes, no rash. Neurologic--cranial nerves II through XII grossly intact, motor and sensory examination normal. Rheumatologic--normal range of motion, nontender, muscles and joints. Psychiatric--normal affect. Diagnostics Laboratory Results Results Past 24 Hours Test 10/13/16 22:40 10/13/16 23:27 10/13/16 23:28 Range/Units White Blood Count 7.62 4.8-10.8 K/uL Red Blood Count 5.28 4.7-6.1 M/uL Hemoglobin 15.7 14.0-18.0 g/dL Hematocrit 44.9 42-52 % Mean Corpuscular Volume 85.0 80-100 fL Mean Corpuscular Hemoglobin 29.7 25-34 pg Mean Corpuscular Hemoglobin Concent 35.0 32-36 g/dl RDW Standard Deviation 41.5 36.4-46.3 fL RDW Coefficient of Variation 13.4 11.5-14.5 % Platelet Count 221 130-400 K/uL Mean Platelet Volume 10.0 7.4-10.4 fL Prothrombin Time 13.4 9.0-12.0 SECONDS Prothromb Time International Ratio 1.2 0.9-1.1 Activated Partial Thromboplast Time 41.7 21.0-31.0 SECONDS Partial Thromboplastin Ratio 1.6 Sodium Level 135 136-145 mmol/L Potassium Level 3.3 3.5-5.1 mmol/L Chloride Level 99 98-107 mmol/L Carbon Dioxide Level 29 21-32 mmol/L Anion Gap 7.0 19.0 16-25 mmol/L Blood Urea Nitrogen 19 7-18 mg/dl Creatinine 0.99 0.60-1.40 mg/dl Est Creatinine Clear Calc Drug Dose 63.7 ml/min Estimated GFR () 87.8 Estimated GFR (Non- 75.8 BUN/Creatinine Ratio 18.8 10-20 Random Glucose 122 70-99 mg/dl Calcium Level 9.2 8.5-10.1 mg/dl Total Bilirubin 0.3 0.2-1 mg/dl Aspartate Amino Transf (AST/SGOT) 21 15-37 U/L Alanine Aminotransferase (ALT/SGPT) 38 12-78 U/L Alkaline Phosphatase 113 45-117 U/L Total Creatine Kinase 63 39-308 U/L Creatine Kinase MB 1.3 0.5-3.6 ng/ml Creatine Kinase MB Ratio 2.1 0-3.0 Total Protein 7.7 6.4-8.2 gm/dl Albumin 3.6 3.4-5.0 gm/dl Globulin 4.1 2.5-4.0 gm/dl Albumin/Globulin Ratio 0.9 0.9-2 Bedside Troponin I < 0.030 0-0.045 ng/ml Bedside Hemoglobin 15.0 14.0-18.0 g/dl Bedside Hematocrit 44 42-52 % Bedside Sodium 136 135-144 mEq/L Bedside Potassium 3.3 3.3-5.0 mEq/L Bedside Chloride 94 101-112 mEq/L Bedside Total CO2 27 24-31 mEq/l Bedside Blood Urea Nitrogen 20 7-18 mg/dl Bedside Creatinine 0.9 0.6-1.3 mg/dl Bedside Glucose (other) 125 70-99 mg/dl Bedside Ionized Calcium (Jesus) 1.20 1.12-1.32 mmol/l Diagnostic Radiology Patient Name: VANDANA BERMUDEZ Unit Number: [id number] Dictated: 10/13/162343 Transcribed: 10/13/162343 EV Printed Date/Time: [~ rep prt dt]/[~ rep prt tm] [~ rep ct labl] - [~ rep ct ivnm] [facility] [place] [address] Dictated: 10/13/162343 Transcribed: 10/13/162343 EV Printed Date/Time: [~ rep prt dt]/[~ rep prt tm] [~ rep ct labl] - [~ rep ct ivnm] SINGLE VIEW CHEST CLINICAL HISTORY: Atypical chest pain. Known pulmonary emboli. FINDINGS: An AP, portable, upright chest radiograph is compared to study dated 07/27/2015 and correlated with chest CT dated 10/09/2016. The examination is degraded by portable technique and patient rotation. The heart is enlarged and there is atherosclerotic calcification of the thoracic aorta. The pulmonary vasculature is noncongested. Chronic interstitial thickening is unchanged. There are layering pleural effusions with bibasilar consolidation. No pneumothorax is seen. The skeletal structures are osteopenic. Degenerative change is noted throughout the thoracic spine. IMPRESSION: 1. Cardiomegaly without radiographic evidence of congestive failure. 2. Small pleural effusions with bibasilar consolidation. This likely represents atelectasis. Clinical correlation will be required. Electronically signed by: Tad Miranda M.D. 10/13/2016 11:46 PM Dictated Date/Time: 10/13/2016 11:44 PM The status of this report is Signed. Draft = Not yet reviewed or approved by Radiologist. Signed = Reviewed and approved by Radiologist. <AttendingPhy></AttendingPhy> <FamilyPhy>Maycol Sloan M.D.</FamilyPhy> < PrimaryPhy>Maycol Sloan M.D.</PrimaryPhy> <UnitNumber>[id number]</UnitNumber> <VisitNumber>[id number]</VisitNumber> <PatientName>VANDANA BERMUDEZ</PatientName> < DateOfBirth>1945</DateOfBirth> <Location>[facility]</Location> <ServiceDate></ServiceDate> <MNE>ESINDI</MNE> <OrderingPhy>ED, PROTOCOL</OrderingPhy> < OrderingPhyMNE>f rep ord dr romero</OrderingPhyMNE> <DictatingPhyMNE>f rep dict dr romero</DictatingPhyMNE> <CCListMNE>f rep ct mne</CCListMNE> <AdmittingPhyMNE>f pt admit dr romero</AdmittingPhyMNE> <AttendingPhyMNE>f pt attend dr romero</ AttendingPhyMNE> <ConsultingPhyMNE>f pt consult dr romero</ConsultingPhyMNE> <FamilyPhyMNE>f pt fam dr romero</FamilyPhyMNE> <OtherPhyMNE>f pt other dr romero</OtherPhyMNE> < PrimaryPhyMNE>f pt prim care dr romero</PrimaryPhyMNE> <ReferringPhyMNE>f pt referring dr romero</ReferringPhyMNE> Patient Name: VANDANA BERMUDEZ Unit Number: [id number] Dictated: 10/14/16 0000 Transcribed: 10/14/16 0000 EV Printed Date/Time: [~ rep prt dt]/[~ rep prt tm] [~ rep ct labl] - [~ rep ct ivnm] [facility] [place] [address] Dictated: 10/14/16 0000 Transcribed: 10/14/16 0000 EV Printed Date/Time: [~ rep prt dt]/[~ rep prt tm] [~ rep ct labl] - [~ rep ct ivnm] CT ANGIOGRAM OF THE CHEST CLINICAL HISTORY: Atypical chest pain. Known pulmonary embolus seen by CT 4 days previously. COMPARISON STUDY: Chest x-ray dated 10/13/2016. Chest CT scans dated 10/09/2016 and 07/30/2015. TECHNIQUE: Following the IV administration of 91 cc of Optiray 320, CT angiogram of the chest was performed from the upper abdomen to the thoracic inlet utilizing the pulmonary embolus protocol. Images are reviewed in the axial, sagittal, and coronal planes. 3-D MIPS images are created and assessed. IV contrast was administered without complication. CT DOSE: 311.74 mGy.cm FINDINGS: Thyroid: Imaged portions of the thyroid gland are normal in size and attenuation. Thoracic aorta: There is mild atherosclerotic calcification of the thoracic aorta, which is normal in caliber and demonstrates standard 3-vessel arch anatomy. No dissection is seen. Pulmonary vasculature: The pulmonary trunk is normal in caliber. Several calcification containing mediastinal lymph nodes are observed. There are small filling defects identified within segmental branches in the right middle and right lower lobes. These have modestly 2617. The central pulmonary vessels are clear. Heart: The heart is enlarged and without pericardial effusion. The coronary arteries are densely calcified. Lungs and pleural spaces: There is a small to moderate right pleural effusion with associated atelectasis. This has modestly increased in size from 4 days previously. A wedge shaped subpleural opacity in the right middle lobe is increase in confluence from 10/09/2016 and likely represents a pulmonary infarct. No airspace consolidation is seen typical for pneumonia. The trachea and central airways are clear. Mediastinum: There is no mediastinal lymphadenopathy. Miya: There are calcified hilar lymph nodes. No pathologically enlarged hilar nodes are seen. Axillae: There is no axillary lymphadenopathy. Upper abdomen: There is a small hiatal hernia. Partially visualized upper abdominal viscera is otherwise within normal limits. Skeletal structures: The skeletal structures are osteopenic. Degenerative change is noted throughout the thoracic spine. No lytic or blastic bony lesions are seen. IMPRESSION: 1. There are tiny segmental and subsegmental pulmonary emboli within branches of the right middle and right lower lobe pulmonary arteries. These have modestly decreased in size from study performed 4 days previously. 2. There is a small to moderate right pleural effusion with associated atelectasis. This has modestly increased in size from 10/09/2016. 3. Evolving right middle lobe pulmonary infarct. 4. No airspace consolidation is seen typical for pneumonia. 5. Cardiomegaly. Electronically signed by: Tad Miranda M.D. 10/14/2016 12:09 AM Dictated Date/Time: 10/14/2016 12:00 AM The status of this report is Signed. Draft = Not yet reviewed or approved by Radiologist. Signed = Reviewed and approved by Radiologist. <AttendingPhy></AttendingPhy> <FamilyPhy>Maycol Sloan M.D.</FamilyPhy> < PrimaryPhy>Maycol Sloan M.D.</PrimaryPhy> <UnitNumber>[id number]</UnitNumber> <VisitNumber>[id number]</VisitNumber> <PatientName>VANDANA BERMUDEZ Emerson</PatientName> < DateOfBirth>1945</DateOfBirth> <Location>[facility]</Location> <ServiceDate></ServiceDate> <MNE>ESINDI</MNE> <OrderingPhy>Giovanny Jose MD</ OrderingPhy> <OrderingPhyMNE>f rep ord dr romero</OrderingPhyMNE> <DictatingPhyMNE> f rep dict dr romero</DictatingPhyMNE> <CCListMNE>f rep ct heather</CCListMNE> < AdmittingPhyMNE>f pt admit dr romero</AdmittingPhyMNE> <AttendingPhyMNE>f pt attend dr romero</AttendingPhyMNE> <ConsultingPhyMNE>f pt consult dr romero</ConsultingPhyMNE> <FamilyPhyMNE>f pt fam dr romero</FamilyPhyMNE> <OtherPhyMNE>f pt other dr romero</OtherPhyMNE> < PrimaryPhyMNE>f pt prim care dr romero</PrimaryPhyMNE> <ReferringPhyMNE>f pt referring dr romero</ReferringPhyMNE> EKG EKG shows normal sinus rhythm at 90 bpm, old inferior wall IL, no acute ST-T changes Impression Assessment and Plan Bilateral pulmonary emboli/right middle lobe pulmonary infarct/right pleural effusion worsening--the patient be admitted to the telemetry unit for oxygen monitoring. We'll place on Dilaudid 1 mg IV every 2 hours when necessary, Xopenex/Atrovent nebulizer every 6 hours while awake and every 2 hours when necessary, Xarelto 15 mg by mouth twice a day. We'll consult pulmonology. CAD/hypertension--continue aspirin 81 mg by mouth every afternoon, clopidogrel 75 mg by mouth daily, potassium citrate 10 mEq by mouth every evening, metoprolol succinate 50 mg by mouth daily, and nitroglycerin sublingual when necessary. We'll hold amiloride 5 mg by mouth daily. Diabetes mellitus--hold metformin 500 mg by mouth twice a day. Place on Accu- Cheks before meals and at bedtime with NovoLog coverage per scale. Hyperlipidemia--continue simvastatin 40 mg by mouth every evening. BPH--formulary substitute for Rapaflo every evening. Level of Care Telemetry Advanced Directives Existing Advance Directive: No Existing Living Will: Yes Existing Power of Shrimp Picker: Yes Resuscitation Status FULL RESUSCITATION VTE Prophylaxis VTE Risk Assessment Done? Y/N: Yes Risk Level: Moderate Given or contraindicated: Other Anticoagulation (Xarelto) Social Service Consult None Apply
[2016-10-14] MEDS ORDERED: GLUCOSE 10 TABS/TUBE PO PRN (06:15)
[2016-10-14] MEDS ORDERED: GLUCAGON FOR INJ 1 MG VIAL SQ PRN (06:15)
[2016-10-14] MEDS ORDERED: GLUCOSE 40% GEL 15 GM TUBE PO PRN (06:15)
[2016-10-14] MEDS ORDERED: DEXTROSE 50% 50 ML SYR IV PRN (06:15)
[2016-10-14] MEDS ORDERED: INSULIN ASPART 100 UNITS/ML 3 ML PEN SC SCH (07:00)
[2016-10-14 07:17] VITALS: BP 125/68; PULSE 70; TEMP 36.9; O2SAT 96
[2016-10-14 07:29] VITALS: PULSE 77; O2SAT 95
[2016-10-14] MEDS ORDERED: CLOPIDOGREL BISULFATE 75 MG TAB PO SCH (09:00)
[2016-10-14] MEDS ORDERED: RIVAROXABAN TAB 15 MG TAB PO SCH (09:00)
[2016-10-14] MEDS ORDERED: METOPROLOL SUCC 50MG EXT REL TAB PO SCH (09:00)
[2016-10-14] MEDS ORDERED: OXYCODONE/ACETAMINOPHEN 5-325 TAB PO PRN (09:15)
[2016-10-14] MEDS ORDERED: OXYC-57 PO (11:29)
[2016-10-14 11:31] VITALS: BP 138/79; PULSE 69; TEMP 36.5; O2SAT 95
--- NOTE | 2016-10-14 11:31 | Pulmonary Consultation ---
History General Date of Service: Oct 14, 2016. Stated Complaint: Right-sided chest pain HPI The patient is a 70 year old male who presents to [facility] with complaints of Pleural Effusion,Pulmonary Infarct. The patient's primary care provider is Maycol Sloan M.D. his history is that on 07/10/2016 he had a right hip replacement in the [facility]. Surgery went very well. He had postoperative rehabilitation. He stayed in the [facility] for several weeks before flying back to [place] approximately September 14. Beginning approximately October 02 he developed pain in the right side of his chest. It was worse with movement or deep breathing. It was worse with hiccuping or with sneezing. He was just mildly short of breath with it. The dyspnea was not terribly significant. He did not feel like he had a cold. He did not have any chills fevers or sweats. The patient presented to the emergency room. Evaluation showed that he had pulmonary embolic disease in the right middle lobe and right lower lobe. He had a small right pleural effusion and he had a right middle lobe pulmonary infarction. The patient was subsequently discharged on xarelto. He reportedly took his medicines as ordered. He was discharged on the . His pain seemed to worsen over the next few days. It also somewhat. Initially it had been in the right lateral chest and it somewhat to his different location and even higher up. He was still not experiencing any significant shortness of breath. The patient came back to the emergency room late last evening. A repeat CT angiogram of the chest showed that there was some improvement in the pulmonary emboli. The right pleural effusion was larger and the pulmonary infarct area in the right mid lung field laterally had increased somewhat. He has had various pain medicines since he came in. He is feeling much better since that happened. This morning he feels quite well. His pain is down to 2 or 3 out of 10. He still has not had any dyspnea. He is not noticing any fevers. The patient has no prior history of blood clots either in his legs or in his chest. He did describe having pericarditis once in the past. His other pulmonary history is he's had mild asthma throughout his lifetime. It started about age 2. When he was a teenager he had simply exercise-induced asthma. He has never been bothered much. He has a rescue inhaler that he uses just occasionally. He does not take any regular medicines for the asthma. Review of Systems Gen.: Patient's energy level is good. He has not had any chills fevers or sweats. The patient actually went to work one day after he was treated for the pulmonary embolism earlier this week. Neurologic: No syncope or near syncope Ophthalmic: No visual complaints ENT: Denies complaints Cardiovascular: Denies angina-type chest pains. He only has the pleuritic type chest pains mentioned previously. There's been no palpitations. Pulmonary: As noted in history of present illness GI: Denies nausea vomiting diarrhea constipation : Denies urinary symptoms Musculoskeletal: Denies complaints except for the pleuritic pain in the chest noted above Dermatologic: No rashes Endocrine: No lymphadenopathy Past Medical History Past Medical History: Asthma Diabetes mellitus NI 2004 Pericarditis Past Surgical History: Appendectomy Plastic surgery of his face Hemorrhoidectomy Cardiac stent Right hip arthroplasty 07/10/2016 Family History Diabetes mellitus Heart disease Kidney stones Mother age 89 CVA and AR Father from suicide secondary to incapacitating pain related to herpes zoster Social History Tobacco: Never EtOH: Moderate Hx Tobacco Use In Past Year?: No Smoking Status: Never Smoker Marital status: Housing status: lives with family Occupational Status: employed History of MDRO History of MDRO: No Allergies Coded Allergies: No Known Allergies (Unverified , 10/13/16) Current Medications Reported Home Medications Medications Dose Route/Sig Max Daily Dose Days Date Category Dose Instructions Xarelto (Rivaroxaban) 20 Mg Tab 20 Mg PO DAILY 10/10/16 Rx take after 21 day starter pack complete Xarelto (Rivaroxaban) 15 Mg Tab 15 Mg PO BID 21 10/10/16 Rx Potassium Citrate 10 Meq Tab 10 Meq PO QPM 10/09/16 Reported Rapaflo (Silodosin) 8 Mg Cap 1 Cap PO QPM 90 10/09/16 Reported Aspirin Ec (Aspirin) 81 Mg Tab 81 Mg PO QPM 10/09/16 Reported Glucophage (Metformin Hcl) 500 Mg Tab 500 Mg PO BID 10/09/16 Reported Amiloride HCl 5 Mg Tab 5 Mg PO DAILY 10/09/16 Reported Nitrostat (Nitroglycerin) 0.4 Mg Tab 0.4 Mg UT PRN 12/16/10 Reported Zocor (Simvastatin) 40 Mg Tab 40 Mg PO QPM 12/16/10 Reported Plavix (Clopidogrel Bisulfate) 75 Mg Tab 75 Mg PO DAILY 12/16/10 Reported Toprol-Xl (Metoprolol Succinate) 50 Mg Tabcr 50 Mg PO DAILY 12/16/10 Reported Physical Physical Exam Vital Signs: Date Time Temp Pulse Resp B/P (MAP) Pulse Ox O2 Delivery O2 Flow Rate FiO2 10/14/16 08:00 Room Air 10/14/16 07:29 77 16 95 Room Air 10/14/16 07:17 36.9 70 16 125/68 (87) 96 Room Air 10/14/16 04:33 36.7 76 17 148/81 (103) 95 Room Air 10/14/16 04:00 Room Air 10/14/16 02:10 36.6 82 18 136/87 96 Room Air 10/14/16 01:53 88 20 139/82 92 10/14/16 01:25 85 18 140/82 94 Room Air 10/14/16 00:02 77 18 137/76 94 Room Air 10/13/16 23:36 83 18 126/92 96 Room Air 10/13/16 22:57 86 18 147/85 96 Room Air 10/13/16 22:53 88 10/13/16 22:39 97 Room Air 10/13/16 22:27 36.6 92 18 145/84 95 Room Air The patient is a 70-year-old male who was cooperative alert and oriented. He was in no distress at rest. Pupils were reactive to light. Nares were clear. Mouth exam showed some elongation of the uvula but was otherwise negative. Palpation of the neck reveals no lymph nodes or masses. The chest was of normal expansion and development. The heart rate is 77 bpm. The rhythm was regular. The most recent blood pressure is 125/68. Auscultation of the lung davidson revealed them to be clear bilaterally. The breath sounds however were diminished at the right lung base. He did have modest pain taking deep breaths. There was dullness at the right base to percussion. The respiratory rate was 16 breaths per minute. The oxygen saturation is 95% on room air. The abdomen is soft. Bowel sounds were normal. There was no tenderness to palpation, masses, or organomegaly. Extremities showed no cyanosis clubbing or edema. Diagnostics Labs Results Past 24 Hours Test 10/13/16 22:40 10/13/16 23:27 10/13/16 23:28 10/14/16 06:50 Range/Units White Blood Count 7.62 4.8-10.8 K/uL Red Blood Count 5.28 4.7-6.1 M/uL Hemoglobin 15.7 14.0-18.0 g/dL Hematocrit 44.9 42-52 % Mean Corpuscular Volume 85.0 80-100 fL Mean Corpuscular Hemoglobin 29.7 25-34 pg Mean Corpuscular Hemoglobin Concent 35.0 32-36 g/dl RDW Standard Deviation 41.5 36.4-46.3 fL RDW Coefficient of Variation 13.4 11.5-14.5 % Platelet Count 221 130-400 K/uL Mean Platelet Volume 10.0 7.4-10.4 fL Prothrombin Time 13.4 9.0-12.0 SECONDS Prothromb Time International Ratio 1.2 0.9-1.1 Activated Partial Thromboplast Time 41.7 21.0-31.0 SECONDS Partial Thromboplastin Ratio 1.6 Sodium Level 135 136-145 mmol/L Potassium Level 3.3 3.5-5.1 mmol/L Chloride Level 99 98-107 mmol/L Carbon Dioxide Level 29 21-32 mmol/L Anion Gap 7.0 19.0 16-25 mmol/L Blood Urea Nitrogen 19 7-18 mg/dl Creatinine 0.99 0.60-1.40 mg/dl Est Creatinine Clear Calc Drug Dose 63.7 ml/min Estimated GFR () 87.8 Estimated GFR (Non- 75.8 BUN/Creatinine Ratio 18.8 10-20 Random Glucose 122 70-99 mg/dl Calcium Level 9.2 8.5-10.1 mg/dl Total Bilirubin 0.3 0.2-1 mg/dl Aspartate Amino Transf (AST/SGOT) 21 15-37 U/L Alanine Aminotransferase (ALT/SGPT) 38 12-78 U/L Alkaline Phosphatase 113 45-117 U/L Total Creatine Kinase 63 39-308 U/L Creatine Kinase MB 1.3 0.5-3.6 ng/ml Creatine Kinase MB Ratio 2.1 0-3.0 Total Protein 7.7 6.4-8.2 gm/dl Albumin 3.6 3.4-5.0 gm/dl Globulin 4.1 2.5-4.0 gm/dl Albumin/Globulin Ratio 0.9 0.9-2 Bedside Troponin I < 0.030 0-0.045 ng/ml Bedside Hemoglobin 15.0 14.0-18.0 g/dl Bedside Hematocrit 44 42-52 % Bedside Sodium 136 135-144 mEq/L Bedside Potassium 3.3 3.3-5.0 mEq/L Bedside Chloride 94 101-112 mEq/L Bedside Total CO2 27 24-31 mEq/l Bedside Blood Urea Nitrogen 20 7-18 mg/dl Bedside Creatinine 0.9 0.6-1.3 mg/dl Bedside Glucose (other) 125 70-99 mg/dl Bedside Ionized Calcium (Jesus) 1.20 1.12-1.32 mmol/l Bedside Glucose 153 70-99 mg/dl Impression Assessment and Plan Impression: #1 acute pulmonary embolism #2 pulmonary infarction #3 right pleural effusion #4 pain secondary to numbers 12 and 3 above #5 mild asthma. Recommendations: The patient appears to have symptoms related to the infarction and the pleural effusion. Fortunately there has been no progression of the pulmonary emboli themselves. He is clinically improved with pain medication. He has been hemodynamically stable. He has not had any hypoxia. The patient should continue with the [facility] upon discharge. He will be following up with Dr. Sloan as an outpatient. He should have a follow-up x-ray in 2-3 weeks to make sure that the pleural effusion is not worsening. If he had worsening of his symptoms with the onset of dyspnea then a chest x-ray should be done sooner. I do not expect that he would need to have a thoracentesis but that is always a possibility. The patient was hoping to play golf tomorrow. I've encouraged him to avoid significant exertion for a period of time until he has recovered. He likely can be discharged today if desired.
--- NOTE | 2016-10-14 11:33 | Discharge Instructions ---
Discharge Instructions Date of Service Oct 14, 2016. Admission Reason for Admission: Pleural Effusion,Pulmonary Infarct Discharge Discharge Diagnosis / Problem: Pulmonary infarct from PE, chest pain, dyspnea Discharge Goals Goal(s): Decrease discomfort, Improve function Activity Recommendations Activity Limitations: resume your previous activity Lifting Limitations: none Exercise/Sports Limitations: as tolerated May Resume Sexual Activity: when tolerated Shower/Bathe: no limitations Driving or Machine Use: no limitations . Instructions / Follow-Up Instructions / Follow-Up Medications: continue all prior medications - PERCOCET: 5/325mg take one tablet every 6 hours for pain. If you are still having pain you can increase to 2 tablets every 6 hours. You can use Tylenol as well, however, your daily Tylenol consumption should not exceed 3000mg, be aware that the 325mg component is Tylenol if you take 2 tablets every 6 hours that equals 2600mg in a 24 hour period FOLLOW UP - Dr. Sloan on 10/16 Current Hospital Diet Patient's current hospital diet: AHA Diet (Heart Healthy) Discharge Diet Recommended Diet: AHA Diet (Heart Healthy) Pending Studies Studies pending at discharge: no Medical Emergencies . Who to Call and When: Medical Emergencies: If at any time you feel your situation is an emergency, please call 911 immediately. . Non-Emergent Contact Non-Emergency issues call your: Primary Care Provider Call Non-Emergent contact if: your pain is not controlled, your pain is worsening, you have any medication questions . . "Provider Documentation" section prepared by Lior Roa. . VTE Core Measure Inpt VTE Proph given/why not?: Other Anticoagulation (Xarelto) [place] Drug Monitoring Program Search Results: no issues identified
[2016-10-14 11:37] VITALS: BP 138/79; PULSE 69; TEMP 36.5; O2SAT 95
--- NOTE | 2016-10-14 12:11 | Discharge Summary ---
Discharge Summary Date of Service Oct 14, 2016. Discharge Summary Admission Date: Oct 14, 2016 at 01:39 Discharge Date: Oct 14, 2016 Discharge Disposition: Home Principal Diagnosis: Chest pain secondary to pulmonary infarct, PE Problems/Secondary Diagnoses: Dyspnea on exertion Pleural effusion, moderate Procedures: none Consultations: Pulmonology Medication Reconciliation New Medications: Oxycodone/Acetaminophen 5MG/325MG (Percocet 5MG/325MG) Tab 1 TABLET PO Q6H PRN for Pain, #30 TAB PAIN Continued Medications: Amiloride HCl (Amiloride HCl) 5 Mg Tab 5 MG PO DAILY Aspirin (Aspirin Ec) 81 Mg Tab 81 MG PO QPM Clopidogrel (Plavix) 75 Mg Tab 75 MG PO DAILY, 0 Refills Metformin Hcl (Glucophage) 500 Mg Tab 500 MG PO BID, TAB Metoprolol Succ (Toprol Xl) (Toprol-Xl) 50 Mg Tabcr 50 MG PO DAILY, 0 Refills Nitroglycerin (Nitrostat) 0.4 Mg Tab 0.4 MG UT PRN, 0 Refills Potassium Citrate (Potassium Citrate) 10 Meq Tab 10 MEQ PO QPM Rivaroxaban (Xarelto) 15 Mg Tab 15 MG PO BID for 21 Days, #42 TABS Rivaroxaban (Xarelto) 20 Mg Tab 20 MG PO DAILY, #30 TAB take after 21 day starter pack complete Silodosin (Rapaflo) 8 Mg Cap 1 CAP PO QPM for 90 Days, CAP 3 Refills Simvastatin (Zocor) 40 Mg Tab 40 MG PO QPM, 0 Refills Discharge Exam Patient feeling better after Percocet given this AM, pain nearly resolved. Discussed plan for discharge, will use Percocet to control pain. Explained that it can be normal for him to have chest pain, pleurisy for the next few weeks as lungs recover from PE and infarct. He feels ready to go home, asked if he could plan golf, I recommended that he not do this. Review of Systems: Constitutional: No fever, No chills, No sweats, No weight loss, No weakness , No fatigue, No problem reported Eyes: No worsening of vision, No eye pain, No redness, No discharge, No diplopia, No problem reported ENT: No hearing loss, No unusual epistaxis, No nasal symptoms, No sore throat, No tinnitus, No dental problems, No trouble swallowing, No problem reported Respiratory: + dyspnea on exertion, No cough, No sputum, No wheezing, No shortness of breath, No dyspnea at rest, No hemoptysis, No problem reported Cardiovascular: + chest pain (right sided, pleuritic), No orthopnea, No PND , No edema, No claudication, No palpitations, No problem reported Abdomen: No pain, No nausea, No vomiting, No diarrhea, No constipation, No GI bleeding, No problem reported Musculoskeletal: No joint pain, No muscle pain, No swelling, No calf pain, No problem reported Genitourinary - Male: No hematuria, No dysuria, No urinary frequency, No urinary urgency Neurologic: No memory loss, No paralysis, No weakness, No numbness/tingling , No vertigo, No balance problems, No problem reported Psychiatric: No depression symptoms, No anhedonism, No anxiety, No insomnia , No substance abuse, No problem reported Endocrine: No fatigue, No excessive thirst, No excessive urination, No problem reported Hematologic / Lymphatic: No abnormal bleeding/bruising, No clotting problems , No swollen lymph nodes, No night sweats, No problem reported Integumentary: No rash, No itch, No new/changing skin lesions, No color change, No bleeding, No problem reported Physical Exam: General Appearance: WD/WN, no apparent distress Eyes: normal inspection, EOMI, sclerae normal ENT: normal ENT inspection, hearing grossly normal, pharynx normal Neck: supple, no adenopathy, no JVD, trachea midline Respiratory/Chest: chest non-tender, lungs clear, no respiratory distress, no accessory muscle use, + decreased breath sounds (right base) Cardiovascular: regular rate, rhythm, no edema, no gallop, no JVD, no murmur , normal peripheral pulses Abdomen / GI: normal bowel sounds, non tender, soft, no organomegaly Extremities: normal inspection, no calf tenderness, normal capillary refill , no pedal edema, normal range of motion, pelvis stable Neurologic/Psychiatric: 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 Returned for observation due to pain, dyspnea on exertion, pleurisy, concerned that maybe things were getting worse - PE with pulmonary infarct, moderate effusion: vitals stable, no hypoxia, chest pain is due to infarct and will improve with time Percocet PRN for pain, gave two weeks worth, will follow up with Dr. Sloan on 10/16 continue Xarelto as previously prescribed cleared for discharge by pulmonology CAD/hypertension--continue aspirin 81 mg by mouth every afternoon, clopidogrel 75 mg by mouth daily, potassium citrate 10 mEq by mouth every evening, metoprolol succinate 50 mg by mouth daily, Amiloride 5mg daily, and nitroglycerin sublingual when necessary Diabetes mellitus-- continue Metformin Hyperlipidemia--continue simvastatin 40 mg by mouth every evening. BPH--formulary substitute for Rapaflo every evening. Total Time Spent: Less than 30 minutes This includes examination of the patient, discharge planning, medication reconciliation, and communication with other providers. Discharge Instructions Please refer to the electronic Patient Visit Report (Discharge Instructions) for additional information. Follow-Up Dr. Sloan on 10/16 Additional Copies To Maycol Sloan M.D.
[2016-10-14] MEDS ORDERED: ASPIRIN 81 MG ECTAB PO SCH (21:00)
[2016-10-14] MEDS ORDERED: SIMVASTATIN 40 MG TAB PO SCH (21:00)
[2016-10-14] MEDS ORDERED: POTASSIUM CITRATE 10 MEQ TAB PO SCH (21:00)
[2016-10-14] MEDS ORDERED: SILODOSIN PO SCH (21:00)
[2016-10-15] MEDS ORDERED: AMILORIDE HCL 5 MG TAB PO SCH (09:00)
== END 2016-10-14 11:45 | disposition home or self-care (01) ==
LOC: C.EDB 22:25 → C.2T 10-14 01:39 → ENRESERV 10-14 01:46
PROVIDERS: ADMIT Hospitalist; ATTEND Internal Medicine
DX: I26.99 Other pulmonary embolism without acute cor pulmonale (principal); R07.89 Other chest pain; I25.10 Atherosclerotic heart disease of native coronary artery without angina pectoris; I10 Essential (primary) hypertension; E78.5 Hyperlipidemia, unspecified; E11.9 Type 2 diabetes mellitus without complications; J45.909 Unspecified asthma, uncomplicated; N40.0 Benign prostatic hyperplasia without lower urinary tract symptoms; Z96.641 Presence of right artificial hip joint; Z79.82 Long term (current) use of aspirin; Z79.899 Other long term (current) drug therapy; Z79.84 Long term (current) use of oral hypoglycemic drugs

== ENCOUNTER → 2016-10-30 | Outpatient (CLI) | payer OTHER, MEDICARE ==
[~2016-10-30] MED LIST changes: +OXYC-57 PO
--- NOTE | 2016-10-30 09:27 | DIAGNOSTIC IMAGING REPORT ---
CHEST 2 VIEWS ROUTINE CLINICAL HISTORY: J90 Pleural [id number] COMPARISON STUDY: 10/13/2016, CT scan dated 10/13/2016 FINDINGS: The cardiac and mediastinal contours are normal. There is a right basilar opacity, likely corresponding to the recently described pulmonary infarct.. There is no lobar consolidation. No significant pleural effusions are visualized on conventional radiographic imaging. IMPRESSION: 1. Pleural-based right basilar opacity, likely corresponding to the recently described right middle lobe pulmonary infarct. 2. No evidence of rectal consolidation to indicate pneumonia 3. No significant pleural effusions are visualized. Electronically signed by: Jovi Benson M.D. 10/30/2016 9:25 AM Dictated Date/Time: 10/30/2016 9:22 AM
== END | disposition home or self-care (01) ==
LOC: C.RAD 08:40
PROVIDERS: ATTEND Physician Assistant
DX: J90 Pleural effusion, not elsewhere classified (principal)

== ENCOUNTER → 2017-03-02 | Outpatient (CLI) | payer OTHER, MEDICARE ==
[2017-03-02 16:55] LABS: BASO % 0.3 %; BASO ABS # 0.02 K/uL (0-0.2); COMPLETE YES; EOS % 1.4 %; HEMATOCRIT 46.2 % (42-52); IG% 0.3 %; LYMPH % 15.7 %; MEAN CELL VOLUME 86.7 fL (80-100); MEAN CORPUSCULAR HEMOGLOBIN 30.4 pg (25-34); MEAN CORPUSCULAR HGB CONC 35.1 g/dl (32-36); MEAN PLATELET VOLUME 10.5 fL (7.4-10.4); MONO % 6.5 %; NEUT % 75.8 %; PLATELET COUNT 147 K/uL (130-400); RED BLOOD COUNT 5.33 M/uL (4.7-6.1); WHITE BLOOD COUNT 7.66 K/uL (4.8-10.8)
[2017-03-02 17:06] LABS: URINE APPEARANCE CLEAR (CLEAR); URINE BILIRUBIN NEG (NEG); URINE COLOR YELLOW; URINE NITRITE NEG (NEG); UROBILINOGEN NEG (NEG)
[2017-03-02 17:10] LABS: MANUAL MICROSCOPIC REQUIRED? NO; REVIEW REQ? NO
[2017-03-02 17:26] LABS: BLOOD UREA NITROGEN 20 mg/dl (7-18); BUN/CREATININE RATIO 23.9 (10-20); CALCIUM 8.9 mg/dl (8.5-10.1); CARBON DIOXIDE 29 mmol/L (21-32); CHLORIDE 104 mmol/L (98-107); CREATININE 0.82 mg/dl (0.60-1.40); GLUCOSE 105 mg/dl (70-99); POTASSIUM 3.6 mmol/L (3.5-5.1); SODIUM 137 mmol/L (136-145)
[2017-03-02 17:27] LABS: C-REACTIVE PROTEIN 0.44 mg/dl (0-0.29); RHEUMATOID FACTOR < 10.0 U/mL (0-15)
== END | disposition home or self-care (01) ==
LOC: C.LABBC 13:20
PROVIDERS: ATTEND Orthopaedic Surgery
DX: M25.50 Pain in unspecified joint (principal); M25.40 Effusion, unspecified joint

== ENCOUNTER → 2017-04-26 | Outpatient (CLI) | payer OTHER, MEDICARE ==
[~2017-04-26] MED LIST changes: -OXYC-57 PO
--- NOTE | 2017-04-26 10:02 | DIAGNOSTIC IMAGING REPORT ---
CT OF THE CHEST WITHOUT IV CONTRAST CLINICAL HISTORY: Follow-up abnormal chest CT COMPARISON STUDY: Chest CT scans dated 10/09/2016 and 07/30/2015 TECHNIQUE: CT scan of the chest is performed from the thoracic inlet to the upper abdomen. Images are reviewed in the axial, sagittal, and coronal planes. IV contrast was not administered for this examination. A dose lowering protocol was utilized adhering to the principles of ALARA. CT DOSE: 341.06 mGycm FINDINGS: Thyroid: Imaged portions of the thyroid gland are normal in size and attenuation. Thoracic aorta: There is mild atherosclerotic calcification of the thoracic aorta, which is normal in caliber and demonstrates standard 3-vessel arch anatomy. Heart: The heart is mildly enlarged and without pericardial effusion. Coronary arteries are densely calcified. Lungs and pleural spaces: Pleural effusions have resolved from previous. An evolving right middle lobe pulmonary infarct has almost completely resolved from 10/13/2016. Subpleural scarring is now seen at this site on image #[id number]. No airspace consolidation is seen typical for pneumonia. The trachea and central airways are clear. A calcified granuloma is noted in the left upper lobe. Mediastinum: There are scattered subcentimeter mediastinal nodes. These are not pathologically enlarged by size criteria. Miya: Not well assessed without IV contrast. Scattered calcified hilar nodes are identified. Axillae: There is no axillary lymphadenopathy. Upper abdomen: There is a small hiatal hernia. There are calcified hepatic and splenic granulomas. A 6 cm nonobstructing calculus is present in the upper pole the left kidney. Skeletal structures: The skeletal structures are osteopenic. Degenerative change is noted throughout the thoracic spine shoulders. No lytic or blastic bony lesions are seen. IMPRESSION: 1. An evolving right middle lobe pulmonary infarct has almost completely resolved from 10/13/2016. Subpleural scarring is now identified at this site. 2. Pleural effusions have resolved from previous. There is no airspace consolidation typical for pneumonia. 3. Mild cardiomegaly. 4. Nonobstructing left renal calculus. 5. Additional findings as above. Electronically signed by: Tad Miranda M.D. 04/26/2017 10:01 AM Dictated Date/Time: 04/26/2017 9:52 AM
== END | disposition home or self-care (01) ==
LOC: C.CTS 09:37
PROVIDERS: ATTEND Internal Medicine
DX: R93.8 Abnormal findings on diagnostic imaging of other specified body structures (principal)

== ENCOUNTER → 2017-07-13 | Outpatient (CLI) | payer OTHER, MEDICARE ==
[~2017-07-13] MED LIST changes: -METO50TA7 PO; +METO50TA8 PO
--- NOTE | 2017-07-13 13:59 | DIAGNOSTIC IMAGING REPORT ---
KUB CLINICAL HISTORY: 71 years-old Male presenting with N20.0 Nephrolithiasis, left-sided stones. TECHNIQUE: Single supine view of the abdomen was obtained. COMPARISON: 06/29/2016. FINDINGS: Nonobstructive bowel gas pattern. No gross pneumoperitoneum. Allowing for bowel gas and stool, stable calculus in the interpolar region of the left kidney. No radiographically visible right renal calculi. No ureteral calculi. Stable distribution of pelvic phleboliths. Splenic arterial calcifications noted. Interval total right hip arthroplasty. Significant degenerative changes of the spine. Lung bases clear. IMPRESSION: 1. Stable left renal calculus. No ureteral calculi. Electronically signed by: Maycol Frazier M.D. 07/13/2017 1:57 PM Dictated Date/Time: 07/13/2017 1:55 PM
[2017-07-13 15:20] LABS: BLOOD UREA NITROGEN 17 mg/dl (7-18); CREATININE 0.94 mg/dl (0.60-1.40)
== END | disposition home or self-care (01) ==
LOC: C.LAB 13:25
PROVIDERS: ATTEND Urology
DX: N40.1 Benign prostatic hyperplasia with lower urinary tract symptoms (principal); N20.0 Calculus of kidney

== ENCOUNTER → 2017-07-26 | Outpatient (CLI) | payer OTHER, MEDICARE ==
[2017-07-26 09:42] LABS: BASO % 0.2 %; BASO ABS # 0.01 K/uL (0-0.2); EOS ABS # 0.11 K/uL (0-0.5); HEMATOCRIT 46.2 % (42-52); HEMOGLOBIN 16.3 g/dL (14.0-18.0); IG# 0.01 K/uL (0.00-0.02); LYMPH % 17.2 %; LYMPH ABS # 0.95 K/uL (1.2-3.4); MEAN CELL VOLUME 85.4 fL (80-100); MEAN CORPUSCULAR HEMOGLOBIN 30.1 pg (25-34); MEAN CORPUSCULAR HGB CONC 35.3 g/dl (32-36); MEAN PLATELET VOLUME 10.7 fL (7.4-10.4); MONO % 8.7 %; MONO ABS # 0.48 K/uL (0.11-0.59); NEUT % 71.7 %; NEUT ABS # 3.95 K/uL (1.4-6.5); PLATELET COUNT 139 K/uL (130-400); RED CELL DISTRIBUTION WIDTH CV 14.4 % (11.5-14.5); RED CELL DISTRIBUTION WIDTH SD 44.2 fL (36.4-46.3); WHITE BLOOD COUNT 5.51 K/uL (4.8-10.8)
[2017-07-26 09:51] LABS: HEMOGLOBIN A1C 6.1 % (4.5-5.6)
[2017-07-26 10:14] LABS: ALBUMIN 3.7 gm/dl (3.4-5.0); ALT/SGPT 30 U/L (12-78); BLOOD UREA NITROGEN 15 mg/dl (7-18); CALCIUM 9.2 mg/dl (8.5-10.1); CARBON DIOXIDE 30 mmol/L (21-32); CHOLESTEROL 178 mg/dl (0-200); CREATININE 0.83 mg/dl (0.60-1.40); GLUCOSE 124 mg/dl (70-99); POTASSIUM 3.7 mmol/L (3.5-5.1); SODIUM 136 mmol/L (136-145)
[2017-07-26 10:18] LABS: ALKALINE PHOSPHATASE 94 U/L (45-117); AST/SGOT 21 U/L (15-37); LDL CHOLESTEROL CALCULATED 77 mg/dl; TOTAL PROTEIN 6.9 gm/dl (6.4-8.2)
== END | disposition home or self-care (01) ==
LOC: C.LAB 07:34
PROVIDERS: ATTEND Internal Medicine
DX: N40.1 Benign prostatic hyperplasia with lower urinary tract symptoms (principal)

== ENCOUNTER 2024-03-15 09:15 | Observation (INO) ==
[2024-03-15] MEDS: OPTIRAY 320 125ml IV ONE (09:31)
--- NOTE | 2024-03-15 09:32 | Emergency Department Note ---
Impression & Plan Stroke-like symptoms, Slurring of speech ED Provider Note Name: VANDANA BERMUDEZ Age: 78 Sex: Male Arrives Via: Walk-In Informant: Patient, ED Provider: Milo Nelson MD Chief Complaint: Strokelike symptoms Impression: As per impressions above Medical Decision Makin-year-old gentleman arrives for evaluation of strokelike symptoms. History of CAD amongst other medical comorbidities. He has had 3 episodes of the last 3 days of 10 to 15 minutes of slurred speech and ability to walk straight. Arrives shortly after the third episode and he is fully neuro intact with NIH of 0 on arrival. Stroke alert called from triage and I evaluated the patient in the CT suite. CT of the head with angiography was obtained. Patient brought to anyone. Continues to maintain neuro intact status. I discussed case with neuro consult at [facility]. They did evaluate the patient. Agree with hospitalization for further workup. Patient stable throughout and hospitalist consulted for further management. Given patient noted multiple doses of aspirin prior to arrival no further aspirin indicated. Triage/Nursing Notes reviewed by Me Differential:Stroke, Migraine, ICH, Dissection, Electrolyte imbalance, seizure, toxic amongst other pathologies considered Vital Signs: reviewed and remarkable for hypertension Labs:ED labs Reviewed by me and remarkable for mild hyperglycemia (patient had 3 donuts this morning for breakfast) Imaging:CT of the head without contrast as per my informal interpretation reveals no intracranial hemorrhage or mass effect. Confirmed by radiologist CT angiography of the head and neck reveals no acute occlusions or dissection As per radiologist. EKG:As per my interpretation. Indication strokelike symptoms. Normal sinus rhythm at 84 beats a minute QTc of 467. There is a right bundle branch block. There is no ectopy nor ischemia. No previous EKGs in the system to compare. Cardiac/Tele Monitoring: Cardiac Monitoring: An Order was placed for continuous cardiac monitoring. The monitor shows a rate of 80 with a normal sinus rhythm. Consults:D[facility] with [facility] [place] neurology who agreed not a TNKase candidate at this time. Discussed with hospitalist who will further evaluate and manage Plan: Disposition:Hospitalization. Condition: Good History of Present Illness: 78-year-old gentleman arrives for evaluation of strokelike symptoms. Patient notes 3 times over the last week he has had a 10 to 15-minute episode of difficulty speaking and ambulatory dysfunction. States he cannot walk in a straight line nor really support his weight. Slurred garbled speech during this and cannot get words across. He states he remembers the entire event. Occurred on as well as this morning at 7 AM and again at 9 AM. States currently feels fine. No headache, neck pain, current neurologic deficits. Does have a long history of cardiac disease status post cardiac arrest about 10 to 15 years ago. He takes aspirin 81 mg daily. Did have a previous PE but is not on any current blood thinners. Patient notes that he took multiple doses of baby aspirin today including 3 this morning along with an Excedrin about an hour ago. Denies any current nausea, vomiting, palpitation, chest pain, shortness of breath, other concerning signs or symptoms. Past Medical History: CAD, hypertension, dyslipidemia, diabetes, PE, BPH, renal colic Home Medications:See Below Allergies: Simvastatin Vitals:Blood Pressure: 185/82, Pulse 78, RR 20, T 36.4C, O2 97% on RA Physical Exam: GENERAL: Patient is well appearing and in no acute distress. RESPIRATORY: No dyspnea. Clear to auscultation and equal bilaterally. CARDIOVASCULAR: Regular rate and rhythm.No murmur appreciated. GASTROINTESTINAL: Abdomen soft, non-tender, no peritonitis. EXTREMITIES: Normal motion all extremities, no cyanosis, no edema. NEUROLOGIC: Alert and oriented. No focal neurologic deficits appreciated SKIN: No rash, no jaundice, no diaphoresis. PSYCH: Appropriate GCS: 15 ED Course: Times/Reassessments: Multiple repeat evaluation. Patient continues to remain stable without further neurologic deficit Critical Care: I have personally spent 32 minutes of critical care time in the direct management of this patient. Acute strokelike symptoms just prior to arrival thus initiation of stroke alert and consideration of possibly giving thrombolytic. This was a life/limb threatening event. This 32 minutes is in excess of all separately billable procedures. Milo Nelson MD Past Med/Surg History Problem List (Updated 03/15/24 @ 20:13 by Milo Nelson MD) Slurring of speech (Acute) Stroke-like symptoms (Acute) Transient ischemic attack (TIA) Enthesopathy, unspecified Open wound of left ankle (Acute) Cervical spondylosis Cervical radiculopathy Upper back pain on left side History of pulmonary embolism History of nephrolithiasis Left flank pain Right leg pain Urinary symptom or sign Incomplete emptying of bladder Erectile dysfunction Vitamin D deficiency Elevated PSA Nephrolithiasis BPH with obstruction/lower urinary tract symptoms Diabetes (Chronic) Hyperlipidemia (Chronic) Hypertension (Chronic) Multiple pulmonary nodules CAD (coronary artery disease) (Chronic) BPH with obstruction/lower urinary tract symptoms (Chronic) Asthma (Chronic) Heart disease (Chronic) Elevated troponin I level (Chronic) Pleural effusion (Chronic) Pulmonary infarct (Chronic) Surgical History History of arthroplasty of left hip History of tonsillectomy History of carpal tunnel repair History of prostate biopsy History of hip replacement History of hemorrhoidectomy History of heart artery stent Family History Mother Diabetes Heart disease Denies family history of Ovarian cancer Prostate cancer Breast cancer Lung cancer Colorectal cancer Social History Smoking Status: Never smoker Second Hand Exposure: No; Do You Dip or Chew Tobacco: No; Hx Alcohol Use: No Hx Substance Use: No Preferred Language: Sinhala Communication Ability: Effective Visual Impairment: Limited Hearing Ability: Normal Case Preparer And Liner Required: No Beliefs That Will Affect Care: None marital status: Current Living Situation: Spouse current occupational status: employed 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 How many Children do You have: 0 Feels Safe at Home: Yes Childhood Exposure to Second-Hand Smoke: No caffeine: Yes (coffee 1-2 a day ) Dental Care, Regularly: Yes Physical Activity Frequency: Daily Seatbelt Use: always Sunscreen Use: Yes (occassional ) Assistive Devices: Glasses Allergies Allergies Allergy/AdvReac Type Severity Reaction Status Date / Time simvastatin AdvReac Mild myalgia Verified 03/15/24 11:57 Home Meds Home Medications Medication Instructions Recorded Confirmed metoprolol succinate 50 mg 50 mg PO DAILY #90 tabs 02/24/19 03/15/24 tablet,extended release 24 hr aspirin 81 mg tablet,delayed 81 mg PO DAILY 02/27/19 03/15/24 release (Kimberlee Low Dose Aspirin) potassium citrate 15 mEq (1,620 0 meq PO ONCE 02/27/19 03/15/24 mg) tablet,extended release vitamin B complex (B 1 tab PO DAILY 02/27/19 03/15/24 Complex-Vitamin B12 tablet) ezetimibe 10 mg tablet 10 mg PO DAILY 11/29/20 03/15/24 finasteride 1 mg tablet 1 mg PO DAILY 03/15/24 03/15/24 Previous Rx's Medication Instructions Recorded hydrochlorothiazide 25 mg tablet 25 mg PO DAILY #90 tabs 11/05/19 nitroglycerin 0.4 mg sublingual 0.4 mg sublingual Q5M PRN chest 02/18/21 tablet pain #100 tabs silodosin 8 mg capsule 8 mg PO DAILY #90 caps 09/12/23 tadalafil 10 mg tablet 10 mg PO DAILY PRN sexual activity 09/12/23 #30 tabs tadalafil 5 mg tablet 5 mg PO DAILY #90 tabs 09/12/23 gabapentin 300 mg capsule 300 mg PO DAILY #30 caps 03/05/24 Results & Data (ED) Vital Signs Vital Signs - 24 hr 03/15/24 09:19 03/15/24 09:39 03/15/24 09:45 Temperature 36.4 C L Temperature Source Oral Pulse Rate 78 81 Pulse Rate [Apical] 79 Respiratory Rate 20 21 18 Respiratory Effort / Characteristics Non-Labored Spontaneous Respiratory Depth Normal Respiratory Pattern Regular Blood Pressure 185/82 H 199/98 H Blood Pressure [Left Arm] 199/98 H Blood Pressure Mean 116 126 Blood Pressure Mean [Left Arm] 131 Pulse Oximetry 97 97 Oxygen Delivery Method Room Air Room Air Sepsis Recent Fever Within 48 Hours No Sepsis New/Unexplained Change in Mental Status N/A Sepsis Action Taken by Nursing No Action Required 03/15/24 09:45 03/15/24 10:09 03/15/24 10:16 Temperature Temperature Source Pulse Rate 80 72 Pulse Rate [Apical] 75 Respiratory Rate 18 20 Respiratory Effort / Characteristics Respiratory Depth Respiratory Pattern Blood Pressure 194/99 H Blood Pressure [Left Arm] 176/93 H Blood Pressure Mean 134 Blood Pressure Mean [Left Arm] 120 Pulse Oximetry 97 97 Oxygen Delivery Method Sepsis Recent Fever Within 48 Hours Sepsis New/Unexplained Change in Mental Status Sepsis Action Taken by Nursing 03/15/24 10:30 03/15/24 10:30 03/15/24 11:00 Temperature Temperature Source Pulse Rate 68 69 70 Pulse Rate [Apical] Respiratory Rate 20 17 18 Respiratory Effort / Characteristics Respiratory Depth Respiratory Pattern Blood Pressure 151/87 H 151/87 H 163/88 H Blood Pressure [Left Arm] Blood Pressure Mean 96 96 123 Blood Pressure Mean [Left Arm] Pulse Oximetry 94 94 97 Oxygen Delivery Method Sepsis Recent Fever Within 48 Hours Sepsis New/Unexplained Change in Mental Status Sepsis Action Taken by Nursing 03/15/24 11:30 Temperature Temperature Source Pulse Rate 71 Pulse Rate [Apical] Respiratory Rate 15 Respiratory Effort / Characteristics Respiratory Depth Respiratory Pattern Blood Pressure 150/98 H Blood Pressure [Left Arm] Blood Pressure Mean 114 Blood Pressure Mean [Left Arm] Pulse Oximetry 97 Oxygen Delivery Method Sepsis Recent Fever Within 48 Hours Sepsis New/Unexplained Change in Mental Status Sepsis Action Taken by Nursing Laboratory Data 03/15/24 09:47 03/15/24 09:47 Lab Results 03/15/24 03/15/24 03/15/24 Range/Units 09:43 09:47 10:01 WBC 5.52 (4.8-10.8) K/ul RBC 5.40 (4.70-6.10) M/uL Hgb 16.4 (14.0-18.0) g/dl Hct 46.8 (42.0-52.0) % MCV 86.7 (80.0-100.0) fL MCH 30.4 (25.0-34.0) pg MCHC 35.0 (32.0-36.0) g/dL RDW Std Deviation 41.9 (36.4-46.3) fL RDW Coeff of Marcel 13.2 (11.5-14.5) % Plt Count 149 (130-400) K/uL MPV 10.0 (9.4-12.4) fL Immature Gran % (Auto) 0.4 % Neut % (Auto) 73.1 % Lymph % (Auto) 17.4 % Ulster % (Auto) 5.8 % Eos % (Auto) 2.9 % Baso % (Auto) 0.4 % Neut # (Auto) 4.04 (1.40-6.50) K/uL Lymph # (Auto) 0.96 L (1.20-3.40) K/uL Ulster # (Auto) 0.32 (0.11-0.59) K/uL Eos # (Auto) 0.16 (0.00-0.50) K/uL Baso # (Auto) 0.02 (0.00-0.20) K/uL Immature Gran # (Auto) 0.02 (0.01-0.20) K/uL PT 10.9 (9.0-12.0) Seconds INR 1.0 (0.9-1.1) APTT 27 (21-31) Seconds PTT Ratio 1.0 Sodium 135 L (136-145) mmol/L Potassium 3.8 (3.5-5.1) mmol/L Chloride 103 (98-107) mmol/L Carbon Dioxide 24 (21-32) mmol/L Anion Gap 8 (3-11) BUN 21 (6-23) mg/dl Creatinine 0.73 (0.6-1.4) mg/dl Est Cr Clr Drug Dosing 78.2 ml/min eGFR 91.97 BUN/Creatinine Ratio 28.8 H (10-20) Glucose 188 H (70-99(Fasting)) mg/dl POC Glucose 168 H (70-99) mg/dl Calcium 8.5 L (8.6-10.3) mg/dl Magnesium 1.6 L (1.7-2.4) mg/dl Total Bilirubin 0.6 (0.2-1.0) mg/dl AST 18 (13-39) U/L ALT 19 (7-52) U/L Alkaline Phosphatase 85 (34-104) U/L Troponin I High Sens 23.0 H (0-20) pg/ml Total Protein 5.7 L (6.0-8.3) gm/dl Albumin 3.7 (3.4-5.0) gm/dl Globulin 2.0 L (2.5-4.0) gm/dl Albumin/Globulin Ratio 1.9 (0.9-2) Urine Color Yellow Urine Appearance Clear (Clear) Urine pH 5.5 (4.5-7.5) Ur Specific Nunez 1.032 H (1.000-1.030) Urine Protein Negative (Negative) Urine Glucose (UA) Negative (Negative) Urine Ketones Negative (Negative) Urine Blood Negative (Negative) Urine Nitrite Negative (Negative) Urine Bilirubin Negative (Negative) Urine Urobilinogen Negative (Negative) Ur Leukocyte Esterase Negative (Negative) Administered Medications Discontinued Medications Clopidogrel Bisulfate (Clopidogrel Bisulfate 300 Mg Tab) 300 mg PO NOW ONE Stop: 03/15/24 12:55 Last Admin: 03/15/24 13:22 Dose: 300 mg Documented By: ANT Gadobutrol (Gadobutrol 7.5ml Vial) 7.5 ml IV ONCE ONE Stop: 03/15/24 14:42 Last Admin: 03/15/24 14:42 Dose: 7.5 ml Documented By: CYNTHIA(2) Ioversol (Optiray 320 125ml) 119 ml IV ONCE ONE Stop: 03/15/24 09:32 Last Admin: 03/15/24 09:31 Dose: 119 ml Documented By: EALeeroy Imaging Data Radiologist's Impression: Head CT 03/15/24 09:27 EXAM: CT Head Without Intravenous Contrast INDICATION: Slurred speech. Difficulty ambulating. TECHNIQUE: Axial computed tomography images of the head/brain without intravenous contrast. Sagittal and/or coronal reformats are provided. Sagittal and coronal reformatted images were created and reviewed. This CT exam was performed using one or more of the following dose reduction techniques: automated exposure control, adjustment of the mA and/or kV according to patient size, and/or use of iterative reconstruction technique. COMPARISON: No relevant prior studies available. FINDINGS: Limitations: None. Brain and extra-axial spaces: There is age appropriate cortical atrophy and chronic ischemic periventricular white matter hypodensity. No acute infarct, hemorrhage or mass noted. Bones/joints: No acute changes. Soft tissues: No significant abnormality noted. Vasculature: No acute abnormality noted. Sinuses: No layering fluid in the visualized portions of the paranasal sinuses. Mastoid air cells: No mastoid effusion. Orbits: No significant abnormality noted. IMPRESSION: Cerebral atrophy. No acute changes. Findings discussed with Dr. Nelson at 9:40 AM 03/15/2024. ACT 112: Negative or not required by law. Electronically signed by Vani Metz 03-15-2024 09:44 AM Head CTA 03/15/24 09:27 EXAM: CT Angiography Head With Intravenous Contrast INDICATION: Stuttering. Loss of balance. TECHNIQUE: Axial computed tomographic angiography images of the head with intravenous contrast. Sagittal and coronal reformatted images were created and reviewed. This CT exam was performed using one or more of the following dose reduction techniques: automated exposure control, adjustment of the mA and/or kV according to patient size, and/or use of iterative reconstruction technique. MIP reconstructed images were created and reviewed. CONTRAST: 119ml of Optiray 320 was administered intravenously. COMPARISON: No relevant prior studies available. FINDINGS: Right internal carotid artery: No acute change noted. Intracranial segment is patent with no significant stenosis. No aneurysm. Right anterior cerebral artery: No abnormality noted. No occlusion or significant stenosis. No aneurysm. Right middle cerebral artery: No abnormality noted. No occlusion or significant stenosis. No aneurysm. Right posterior cerebral artery: No abnormality noted. No occlusion or significant stenosis. No aneurysm. Right vertebral artery: No significant abnormality noted. Left internal carotid artery: No acute change noted. Intracranial segment is patent with no significant stenosis. No aneurysm. Left anterior cerebral artery: No abnormality noted. No occlusion or significant stenosis. No aneurysm. Left middle cerebral artery: No abnormality noted. No occlusion or significant stenosis. No aneurysm. Left posterior cerebral artery: No abnormality noted. No occlusion or significant stenosis. No aneurysm. Left vertebral artery: No significant abnormality noted. Basilar artery: No abnormality noted. No occlusion or significant stenosis. No aneurysm. Sinuses: Mild chronic maxillary sinus thickening left greater than right. IMPRESSION: 1. No angiographic abnormality in the head. If additional imaging is clinically warranted, MRI is recommended. 2. Mild bilateral chronic maxillary sinusitis left greater than right. ACT 112: Negative or not required by law. Electronically signed by Vani Metz 03-15-2024 09:47 AM Neck CTA 03/15/24 09:27 EXAM: CT Angiography Neck With Intravenous Contrast INDICATION: Stuttering and loss of balance. TECHNIQUE: Routine carotid CT angiography protocol was performed with intravenous contrast. NASCET criteria using the distal ICAs for comparison were used for evaluation of stenoses. Sagittal and coronal reformatted images were created and reviewed. This CT exam was performed using one or more of the following dose reduction techniques: automated exposure control, adjustment of the mA and/or kV according to patient size, and/or use of iterative reconstruction technique. MIP reconstructed images were created and reviewed. CONTRAST: 119ml of Optiray 320 was administered intravenously. COMPARISON: None. FINDINGS: VASCULATURE: Right common carotid artery: No abnormality noted. No occlusion or significant stenosis. No dissection. Right internal carotid artery: No abnormality noted. Extracranial segment is patent with no occlusion or significant stenosis. No dissection. Right external carotid artery: No abnormality noted. No occlusion. Right vertebral artery: No abnormality noted. No occlusion or significant stenosis. No dissection. Left common carotid artery: No abnormality noted. No occlusion or significant stenosis. No dissection. Left internal carotid artery: Minimal mixed plaque at the bulb. Extracranial segment is patent with no occlusion or significant stenosis. No dissection. Left external carotid artery: No abnormality noted. No occlusion. Left vertebral artery: No abnormality noted. No occlusion or significant stenosis. No dissection. Brachiocephalic and subclavian arteries: There is mild mixed plaque at the origin of the left subclavian artery without stenosis or occlusion. NECK: Bones/joints: No acute or atypical chronic changes. Soft tissues: No abnormality noted. Sinuses: Mild chronic bilateral maxillary sinus thickening left greater than right. Lung apices: Clear. CAROTID STENOSIS REFERENCE USING NASCET CRITERIA: % ICA stenosis = (1 - narrowest ICA diameter/diameter of distal cervical ICA) x 100. Mild - <50% stenosis. Moderate - 50-69% stenosis. Severe - 70-94% stenosis. Near occlusion - 95-99% stenosis. Occluded - 100% stenosis. IMPRESSION: 1. No significant angiographic abnormality in the neck. 2. Chronic maxillary sinusitis. ACT 112: Negative or not required by law. Electronically signed by Vani Metz 03-15-2024 09:49 AM Discharge Plan Visit Data Chief Complaint: TIA Symptoms Stated Complaint: TROUBLE STANDING, HAD TWO MINI STROKES THIS AM ED Provider: Milo Nelson Discharge Problem: Stroke-like symptoms, Slurring of speech [facility]position[facility] Discharge Instructions Interventions: ED Discharge Assessment Last Done: 03/15/24 14:42
--- NOTE | 2024-03-15 09:44 | CT Scan Report ---
EXAM: CT Head Without Intravenous Contrast INDICATION: Slurred speech. Difficulty ambulating. TECHNIQUE: Axial computed tomography images of the head/brain without intravenous contrast. Sagittal and/or coronal reformats are provided. Sagittal and coronal reformatted images were created and reviewed. This CT exam was performed using one or more of the following dose reduction techniques: automated exposure control, adjustment of the mA and/or kV according to patient size, and/or use of iterative reconstruction technique. COMPARISON: No relevant prior studies available. FINDINGS: Limitations: None. Brain and extra-axial spaces: There is age appropriate cortical atrophy and chronic ischemic periventricular white matter hypodensity. No acute infarct, hemorrhage or mass noted. Bones/joints: No acute changes. Soft tissues: No significant abnormality noted. Vasculature: No acute abnormality noted. Sinuses: No layering fluid in the visualized portions of the paranasal sinuses. Mastoid air cells: No mastoid effusion. Orbits: No significant abnormality noted. IMPRESSION: Cerebral atrophy. No acute changes. Findings discussed with Dr. Nelson at 9:40 AM 03/15/2024. ACT 112: Negative or not required by law. Electronically signed by Vani Metz 03-15-2024 09:44 AM
--- NOTE | 2024-03-15 09:50 | CT Scan Report ---
EXAM: CT Angiography Head With Intravenous Contrast INDICATION: Stuttering. Loss of balance. TECHNIQUE: Axial computed tomographic angiography images of the head with intravenous contrast. Sagittal and coronal reformatted images were created and reviewed. This CT exam was performed using one or more of the following dose reduction techniques: automated exposure control, adjustment of the mA and/or kV according to patient size, and/or use of iterative reconstruction technique. MIP reconstructed images were created and reviewed. CONTRAST: 119ml of Optiray 320 was administered intravenously. COMPARISON: No relevant prior studies available. FINDINGS: Right internal carotid artery: No acute change noted. Intracranial segment is patent with no significant stenosis. No aneurysm. Right anterior cerebral artery: No abnormality noted. No occlusion or significant stenosis. No aneurysm. Right middle cerebral artery: No abnormality noted. No occlusion or significant stenosis. No aneurysm. Right posterior cerebral artery: No abnormality noted. No occlusion or significant stenosis. No aneurysm. Right vertebral artery: No significant abnormality noted. Left internal carotid artery: No acute change noted. Intracranial segment is patent with no significant stenosis. No aneurysm. Left anterior cerebral artery: No abnormality noted. No occlusion or significant stenosis. No aneurysm. Left middle cerebral artery: No abnormality noted. No occlusion or significant stenosis. No aneurysm. Left posterior cerebral artery: No abnormality noted. No occlusion or significant stenosis. No aneurysm. Left vertebral artery: No significant abnormality noted. Basilar artery: No abnormality noted. No occlusion or significant stenosis. No aneurysm. Sinuses: Mild chronic maxillary sinus thickening left greater than right. IMPRESSION: 1. No angiographic abnormality in the head. If additional imaging is clinically warranted, MRI is recommended. 2. Mild bilateral chronic maxillary sinusitis left greater than right. ACT 112: Negative or not required by law. Electronically signed by Vani Metz 03-15-2024 09:47 AM
--- NOTE | 2024-03-15 09:51 | CT Scan Report ---
EXAM: CT Angiography Neck With Intravenous Contrast INDICATION: Stuttering and loss of balance. TECHNIQUE: Routine carotid CT angiography protocol was performed with intravenous contrast. NASCET criteria using the distal ICAs for comparison were used for evaluation of stenoses. Sagittal and coronal reformatted images were created and reviewed. This CT exam was performed using one or more of the following dose reduction techniques: automated exposure control, adjustment of the mA and/or kV according to patient size, and/or use of iterative reconstruction technique. MIP reconstructed images were created and reviewed. CONTRAST: 119ml of Optiray 320 was administered intravenously. COMPARISON: None. FINDINGS: VASCULATURE: Right common carotid artery: No abnormality noted. No occlusion or significant stenosis. No dissection. Right internal carotid artery: No abnormality noted. Extracranial segment is patent with no occlusion or significant stenosis. No dissection. Right external carotid artery: No abnormality noted. No occlusion. Right vertebral artery: No abnormality noted. No occlusion or significant stenosis. No dissection. Left common carotid artery: No abnormality noted. No occlusion or significant stenosis. No dissection. Left internal carotid artery: Minimal mixed plaque at the bulb. Extracranial segment is patent with no occlusion or significant stenosis. No dissection. Left external carotid artery: No abnormality noted. No occlusion. Left vertebral artery: No abnormality noted. No occlusion or significant stenosis. No dissection. Brachiocephalic and subclavian arteries: There is mild mixed plaque at the origin of the left subclavian artery without stenosis or occlusion. NECK: Bones/joints: No acute or atypical chronic changes. Soft tissues: No abnormality noted. Sinuses: Mild chronic bilateral maxillary sinus thickening left greater than right. Lung apices: Clear. CAROTID STENOSIS REFERENCE USING NASCET CRITERIA: % ICA stenosis = (1 - narrowest ICA diameter/diameter of distal cervical ICA) x 100. Mild - <50% stenosis. Moderate - 50-69% stenosis. Severe - 70-94% stenosis. Near occlusion - 95-99% stenosis. Occluded - 100% stenosis. IMPRESSION: 1. No significant angiographic abnormality in the neck. 2. Chronic maxillary sinusitis. ACT 112: Negative or not required by law. Electronically signed by Vani Metz 03-15-2024 09:49 AM
[2024-03-15 10:20] LABS: Basophils # (auto) 0.02 K/uL (0.00-0.20); Basophils % (auto) 0.4 %; Eosinophils # (auto) 0.16 K/uL (0.00-0.50); Eosinophils % (auto) 2.9 %; Hematocrit (blood only) 46.8 % (42.0-52.0); Hemoglobin 16.4 g/dl (14.0-18.0); Immature Granulocytes # (auto) 0.02 K/uL (0.01-0.20); Immature Granulocytes % (auto) 0.4 %; Lymphocytes # (auto) 0.96 K/uL (1.20-3.40); Lymphocytes % (auto) 17.4 %; Mean Corpuscular Hemoglobin 30.4 pg (25.0-34.0); Mean Corpuscular Volume 86.7 fL (80.0-100.0); Monocytes # (auto) 0.32 K/uL (0.11-0.59); Monocytes % (auto) 5.8 %; Neutrophils # (auto) 4.04 K/uL (1.40-6.50); Neutrophils % (auto) 73.1 %; Platelet Count 149 K/uL (130-400); RDW Coefficient of Variation 13.2 % (11.5-14.5); RDW Standard Deviation 41.9 fL (36.4-46.3); White Blood Count 5.52 K/ul (4.8-10.8)
[2024-03-15 10:32] LABS: Albumin Globulin Ratio 1.9 (0.9-2); Albumin Level 3.7 gm/dl (3.4-5.0); BUN Creatinine Ratio 28.8 (10-20); Bilirubin,Total 0.6 mg/dl (0.2-1.0); Calcium 8.5 mg/dl (8.6-10.3); Creatinine Clr Calc Pharmacy 78.2 ml/min; Magnesium 1.6 mg/dl (1.7-2.4); Potassium 3.8 mmol/L (3.5-5.1); Total Protein 5.7 gm/dl (6.0-8.3)
[2024-03-15 10:33] LABS: Appearance Urine Clear (Clear); Bilirubin Urine Negative (Negative); Blood Urine Negative (Negative); Color Urine Yellow; Glucose Urine UA Negative (Negative); Ketones Urine Negative (Negative); Leukocyte Esterase Urine Negative (Negative); Nitrite Urine Negative (Negative); Protein Urine Negative (Negative); Specific Gravity Urine 1.032 (1.000-1.030); Urobilinogen Urine Negative (Negative); pH Urine 5.5 (4.5-7.5)
[2024-03-15 10:42] LABS: Partial Thromboplastin Time 27 Seconds (21-31); Prothrombin Time 10.9 Seconds (9.0-12.0)
--- NOTE | 2024-03-15 11:42 | History & Physical Report ---
Date of Service March 15, 2024 Assessment & Plan (1) Transient ischemic attack (TIA): Plan: Presenting w/ dizziness and slurred speech that started the day of arrival at 0700, lasting 10 minutes and resolving, recurring at 0900 x 10 minutes then resolving again; No neuro deficits on exam, no current symptoms. - Admit med - Telestroke recommending no TNK at this time (outside of window, symptoms resolved) - Neurochecks + NIHSS - Dysphagia screen x 1 - NPO until passed THEN heart healthy + DMT2 - CT head with cerebral atrophy, no acute changes - CTA head/neck no angiographic abnormality in the head, mild bilateral chronic maxillary sinusitis L >R;no significant angiographic abnormality in the neck, chronic maxillary sinusitis - 2D Echo Bubble pending - A1c from 2020, 5.9%, pending repeat - Troponin 23, EKG normal sinus, rate around 85 bpm, RBBB; no chest pain - Lovenox for DVT prevention FOLLOWING WNL MRI - Lipids from 2020, cholesterol 141, LDL 38, HDL 38, triglycerides 333; pending repeat a.m. 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 - No current symptoms of chest pain - EKG normal sinus, rate around 85 - Troponin 23 - Medications metoprolol, hydrochlorothiazide for HTN - Hypertensive on exam but did not take AM medications (3) History of pulmonary embolism: Plan: In 2017, s/p 3 months hip replacement when it occurred - Was on Xeralto x 6 months, now just aspirin daily 81mg (4) Open wound of left ankle: Plan: Stable, currently in dressing - Left medial ankle, secondary to trauma - Follows with wound clinic, most recent visit 03/07/2024 - Wound care prn (5) Diabetes: Plan: H/o DMT2 - At home regimen metformin 500 twice daily - hold - Most recent A1C 5.9%, pending repeat - No SSI or checks for now; if prolonged stay then add SSI - T2DM diet (+ heart healthy) Plan Elevated troponin- 23, EKG w/o ischemic changes and no current symptoms BPH- Hold finasteride bc not carried in pharmacy Dispo: Admit Diet: Heart healthy, DMT2 VTE Prophylaxis: Lovenox Code: Full Admission and Anticipated Discharge Date Admission Date: 03/15/2024 History of Present Illness Chief Complaint: Dizziness Primary Care Provider: Leyla Dumont DO 78-year-old male presenting for slurred speech starting at 0700, associated loss of balance. ED course: CBC grossly WNL, PT/INR WNL, CMP Na 135, BUN 28.8, albumin 5.7, globulin 2.0; calcium 8.5, magnesium 1.6; troponin 23.0; UA negative for infection; head CT with cerebral atrophy, no acute changes; head CTA no angiographic abnormality in the head, mild bilateral chronic maxillary sinusitis L >R; neck CTA no significant angiographic abnormality in the neck, chronic maxillary sinusitis; EKG normal sinus rate around 85 bpm, RBBB. Telestroke consulted, no indications for TNK. 78-year-old male PMHx of PE only on ASA, HTN, HLD, DM, CAD, and asthma presenting for neurological deficits starting this a.m. 0700. 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 [place] dizzy at the same time. Symptoms resolved within 10 minutes, and did not recur until the day of arrival at 0700. States that he started to have dizziness and a little confusion. Informed his , who states that his speech sounded off and he was not making a lot of sense. Symptoms had then again resolved in less than 10 minutes, the patient decided to try to go to work. At 0900 the symptoms recurred with dizziness and inability to move his body. States that it was not necessarily weakness that was causing him to not be unable to move, but he just could not move to the chair nearby to sit down. Called his who encouraged him to come to ED, and presents with him today. Denies any LOC, headache, vision changes, falls, chest pain, or abnormal numbness/tingling. Reports that he always has numbness/tingling in his left arm, but this has not worsened at all. Not having weakness per se, just dizziness as though he is off balance. 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 Patient took 1 baby aspirin this morning. Patient did not take regular a.m. medications. Please see Dr. Olson's attestation for adjustments/additions to treatment plan. Allergies Allergy/AdvReac Type Severity Reaction Status Date / Time simvastatin AdvReac Mild myalgia Verified 03/15/24 11:57 Home Medications Medication Instructions Recorded Confirmed Type metoprolol succinate 50 mg 50 mg PO DAILY #90 tabs 02/24/19 03/15/24 History tablet,extended release 24 hr aspirin 81 mg tablet,delayed 81 mg PO DAILY 02/27/19 03/15/24 History release (Kimberlee Low Dose Aspirin) potassium citrate 15 mEq (1,620 0 meq PO ONCE 02/27/19 03/15/24 History mg) tablet,extended release vitamin B complex (B 1 tab PO DAILY 02/27/19 03/15/24 History Complex-Vitamin B12 tablet) hydrochlorothiazide 25 mg tablet 25 mg PO DAILY #90 tabs 11/05/19 03/15/24 Rx ezetimibe 10 mg tablet 10 mg PO DAILY 11/29/20 03/15/24 History nitroglycerin 0.4 mg sublingual 0.4 mg sublingual Q5M PRN chest 02/18/21 03/15/24 Rx tablet pain #100 tabs silodosin 8 mg capsule 8 mg PO DAILY #90 caps 09/12/23 03/15/24 Rx tadalafil 10 mg tablet 10 mg PO DAILY PRN sexual activity 09/12/23 03/15/24 Rx #30 tabs tadalafil 5 mg tablet 5 mg PO DAILY #90 tabs 09/12/23 03/15/24 Rx gabapentin 300 mg capsule 300 mg PO DAILY #30 caps 03/05/24 03/15/24 Rx finasteride 1 mg tablet 1 mg PO DAILY 03/15/24 03/15/24 History Past Med/Surg History Problem List Slurring of speech (Acute) Stroke-like symptoms (Acute) Transient ischemic attack (TIA) Enthesopathy, unspecified Open wound of left ankle (Acute) Cervical spondylosis Cervical radiculopathy Upper back pain on left side History of pulmonary embolism History of nephrolithiasis Left flank pain Right leg pain Urinary symptom or sign Incomplete emptying of bladder Erectile dysfunction Vitamin D deficiency Elevated PSA Nephrolithiasis BPH with obstruction/lower urinary tract symptoms Diabetes (Chronic) Hyperlipidemia (Chronic) Hypertension (Chronic) Multiple pulmonary nodules CAD (coronary artery disease) (Chronic) BPH with obstruction/lower urinary tract symptoms (Chronic) Asthma (Chronic) Heart disease (Chronic) Elevated troponin I level (Chronic) Pleural effusion (Chronic) Pulmonary infarct (Chronic) Surgical History History of arthroplasty of left hip History of tonsillectomy History of carpal tunnel repair History of prostate biopsy History of hip replacement History of hemorrhoidectomy History of heart artery stent Family History Mother Diabetes Heart disease Denies family history of Ovarian cancer Prostate cancer Breast cancer Lung cancer Colorectal cancer Social History Smoking Status: Never smoker Second Hand Exposure: No; Do You Dip or Chew Tobacco: No; Hx Alcohol Use: No Hx Substance Use: No Preferred Language: Salvadorean Communication Ability: Effective Visual Impairment: Limited Hearing Ability: Normal Hairspring Setter Required: No Beliefs That Will Affect Care: None marital status: Current Living Situation: Spouse current occupational status: employed 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 How many Children do You have: 0 Feels Safe at Home: Yes Childhood Exposure to Second-Hand Smoke: No caffeine: Yes (coffee 1-2 a day ) Dental Care, Regularly: Yes Physical Activity Frequency: Daily Seatbelt Use: always Sunscreen Use: Yes (occassional ) Assistive Devices: Glasses Review of Systems Review of Systems: All systems reviewed & are unremarkable except as noted in Subjective Physical Exam Physical Exam: General: No acute distress Skin: Warm and dry, L ankle wound currently wrapped in dressing Head: Normocephalic, atraumatic Eyes: PERRL, conjunctivae clear, sclera non-icteric; EOM intact; wears glasses ENT: External ear and ear canal without swelling; nose atraumatic; good dentition Neck: Supple, no LAD Cardio: RRR, no M/G/R, S1 and S2 normal Resp: No respiratory distress, Lungs CTA in all lobes bilaterally, no wheezes, rales, or rhonchi Abdomen: Soft, symmetric, nontender; no distention; No masses or hepatosplenomegaly; Bowel sounds normoactive MSK: No deformities, full ROM throughout; pulses palpable and equal; no edema. Neuro: Awake, alert II- PERRL, no VF deficits III, IV, - EOMs intact, no deviation, no nystagmus V- Normal sensation in all locations VII- No asymmetry, no nasolabial fold flattening VIII- Normal hearing to speech IX, X- Normal palatal elevation, no ulnar deviation XI- 5/5 head turn + shoulder shrug bilaterally XII- Midline tongue protrusion Motor: 5/5 strength throughout BUE/BLE Sensory: Normal sensation throughout, no hemineglect, Romberg absent Coordination: Normal [id number], no tremor Gait: Unable to asses; reported dizziness Psych: Appropriate mood and affect; good judgement and insight. Patient's is present in room at time of visit. Results & Data Results & Data Vital Signs (Past 12 Hours) Vital Signs Temp Pulse Pulse Resp BP BP Pulse Ox 03/15/24 11:00 70 18 163/88 H 97 03/15/24 10:30 69 17 151/87 H 94 03/15/24 10:30 68 20 151/87 H 94 03/15/24 10:16 72 20 194/99 H 97 03/15/24 10:09 75 18 176/93 H 97 03/15/24 09:45 80 03/15/24 09:45 79 18 199/98 H 97 03/15/24 09:39 81 21 199/98 H 03/15/24 09:19 36.4 C L 78 20 185/82 H 97 O2 Del Method 03/15/24 11:00 03/15/24 10:30 03/15/24 10:30 03/15/24 10:16 03/15/24 10:09 03/15/24 09:45 11/30/24 09:45 Room Air 03/15/24 09:39 03/15/24 09:19 Room Air Laboratory Results 03/15/24 03/15/24 03/15/24 10:01 09:47 09:43 WBC 5.52 RBC 5.40 Hgb 16.4 Hct 46.8 MCV 86.7 MCH 30.4 MCHC 35.0 RDW Std Deviation 41.9 RDW Coeff of Marcel 13.2 Plt Count 149 MPV 10.0 Immature Gran % (Auto) 0.4 Neut % (Auto) 73.1 Lymph % (Auto) 17.4 [place] % (Auto) 5.8 Eos % (Auto) 2.9 Baso % (Auto) 0.4 Neut # (Auto) 4.04 Lymph # (Auto) 0.96 L [place] # (Auto) 0.32 Eos # (Auto) 0.16 Baso # (Auto) 0.02 Immature Gran # (Auto) 0.02 PT 10.9 INR 1.0 APTT 27 PTT Ratio 1.0 Sodium 135 L Potassium 3.8 Chloride 103 Carbon Dioxide 24 Anion Gap 8 BUN 21 Creatinine 0.73 Est Cr Clr Drug Dosing 78.2 eGFR 91.97 BUN/Creatinine Ratio 28.8 H Glucose 188 H POC Glucose 168 H Calcium 8.5 L Magnesium 1.6 L Total Bilirubin 0.6 AST 18 ALT 19 Alkaline Phosphatase 85 Troponin I High Sens 23.0 H Total Protein 5.7 L Albumin 3.7 Globulin 2.0 L Albumin/Globulin Ratio 1.9 Urine Color Yellow Urine Appearance Clear Urine pH 5.5 Ur Specific [place] 1.032 H Urine Protein Negative Urine Glucose (UA) Negative Urine Ketones Negative Urine Blood Negative Urine Nitrite Negative Urine Bilirubin Negative Urine Urobilinogen Negative Ur Leukocyte Esterase Negative Diagnostic Findings Head CT 03/15/24 09:27 EXAM: CT Head Without Intravenous Contrast INDICATION: Slurred speech. Difficulty ambulating. TECHNIQUE: Axial computed tomography images of the head/brain without intravenous contrast. Sagittal and/or coronal reformats are provided. Sagittal and coronal reformatted images were created and reviewed. This CT exam was performed using one or more of the following dose reduction techniques: automated exposure control, adjustment of the mA and/or kV according to patient size, and/or use of iterative reconstruction technique. COMPARISON: No relevant prior studies available. FINDINGS: Limitations: None. Brain and extra-axial spaces: There is age appropriate cortical atrophy and chronic ischemic periventricular white matter hypodensity. No acute infarct, hemorrhage or mass noted. Bones/joints: No acute changes. Soft tissues: No significant abnormality noted. Vasculature: No acute abnormality noted. Sinuses: No layering fluid in the visualized portions of the paranasal sinuses. Mastoid air cells: No mastoid effusion. Orbits: No significant abnormality noted. IMPRESSION: Cerebral atrophy. No acute changes. Findings discussed with Dr. Nelson at 9:40 AM 03/15/2024. ACT 112: Negative or not required by law. Electronically signed by Vani Metz 03-15-2024 09:44 AM Head CTA 03/15/24 09:27 EXAM: CT Angiography Head With Intravenous Contrast INDICATION: Stuttering. Loss of balance. TECHNIQUE: Axial computed tomographic angiography images of the head with intravenous contrast. Sagittal and coronal reformatted images were created and reviewed. This CT exam was performed using one or more of the following dose reduction techniques: automated exposure control, adjustment of the mA and/or kV according to patient size, and/or use of iterative reconstruction technique. MIP reconstructed images were created and reviewed. CONTRAST: 119ml of Optiray 320 was administered intravenously. COMPARISON: No relevant prior studies available. FINDINGS: Right internal carotid artery: No acute change noted. Intracranial segment is patent with no significant stenosis. No aneurysm. Right anterior cerebral artery: No abnormality noted. No occlusion or significant stenosis. No aneurysm. Right middle cerebral artery: No abnormality noted. No occlusion or significant stenosis. No aneurysm. Right posterior cerebral artery: No abnormality noted. No occlusion or significant stenosis. No aneurysm. Right vertebral artery: No significant abnormality noted. Left internal carotid artery: No acute change noted. Intracranial segment is patent with no significant stenosis. No aneurysm. Left anterior cerebral artery: No abnormality noted. No occlusion or significant stenosis. No aneurysm. Left middle cerebral artery: No abnormality noted. No occlusion or significant stenosis. No aneurysm. Left posterior cerebral artery: No abnormality noted. No occlusion or significant stenosis. No aneurysm. Left vertebral artery: No significant abnormality noted. Basilar artery: No abnormality noted. No occlusion or significant stenosis. No aneurysm. Sinuses: Mild chronic maxillary sinus thickening left greater than right. IMPRESSION: 1. No angiographic abnormality in the head. If additional imaging is clinically warranted, MRI is recommended. 2. Mild bilateral chronic maxillary sinusitis left greater than right. ACT 112: Negative or not required by law. Electronically signed by Vani Metz 03-15-2024 09:47 AM Neck CTA 03/15/24 09:27 EXAM: CT Angiography Neck With Intravenous Contrast INDICATION: Stuttering and loss of balance. TECHNIQUE: Routine carotid CT angiography protocol was performed with intravenous contrast. NASCET criteria using the distal ICAs for comparison were used for evaluation of stenoses. Sagittal and coronal reformatted images were created and reviewed. This CT exam was performed using one or more of the following dose reduction techniques: automated exposure control, adjustment of the mA and/or kV according to patient size, and/or use of iterative reconstruction technique. MIP reconstructed images were created and reviewed. CONTRAST: 119ml of Optiray 320 was administered intravenously. COMPARISON: None. FINDINGS: VASCULATURE: Right common carotid artery: No abnormality noted. No occlusion or significant stenosis. No dissection. Right internal carotid artery: No abnormality noted. Extracranial segment is patent with no occlusion or significant stenosis. No dissection. Right external carotid artery: No abnormality noted. No occlusion. Right vertebral artery: No abnormality noted. No occlusion or significant stenosis. No dissection. Left common carotid artery: No abnormality noted. No occlusion or significant stenosis. No dissection. Left internal carotid artery: Minimal mixed plaque at the bulb. Extracranial segment is patent with no occlusion or significant stenosis. No dissection. Left external carotid artery: No abnormality noted. No occlusion. Left vertebral artery: No abnormality noted. No occlusion or significant stenosis. No dissection. Brachiocephalic and subclavian arteries: There is mild mixed plaque at the origin of the left subclavian artery without stenosis or occlusion. NECK: Bones/joints: No acute or atypical chronic changes. Soft tissues: No abnormality noted. Sinuses: Mild chronic bilateral maxillary sinus thickening left greater than right. Lung apices: Clear. CAROTID STENOSIS REFERENCE USING NASCET CRITERIA: % ICA stenosis = (1 - narrowest ICA diameter/diameter of distal cervical ICA) x 100. Mild - <50% stenosis. Moderate - 50-69% stenosis. Severe - 70-94% stenosis. Near occlusion - 95-99% stenosis. Occluded - 100% stenosis. IMPRESSION: 1. No significant angiographic abnormality in the neck. 2. Chronic maxillary sinusitis. ACT 112: Negative or not required by law. Electronically signed by Vani Metz 03-15-2024 09:49 AM Code Status & VTE Plan Code Status Full VTE Prophylaxis Plan VTE Prophylaxis will be ordered: Yes Supervising Physician Co-Signing Physician Notes I personally saw and examined the patient. I independently reviewed the labs, EKG, imaging, problem list, medication list, past medical history and family history. I verified all aldrich points and agree with Mary Cantu PA-C with the following exceptions and/or additions: 78 year old male presents to the ER with 10 minutes episodes of being unbalanced with slurred speech. No associated headache or history of migraines O/E HS RRR, no murmurs, Chest CTAB, Abdo SNT, CN2-> 12 intact, no extremity weakness or loss of sensation A/P Stroke-like symptoms - symptoms concerning for TIA however brain MRI suggestive of NPH therefore will consult neurology but continue TIA workup at this time as this appears to be his most likely diagnosis. Management as above. PG Care Time/CCT Total # of Minutes Spent Total Time Spent with Patient: Total time spent is greater than 50% in coordination of care (as documented) at patient's floor/unit and/or counseling patient: Coding Level of Care Code 38991 INT INP/OBS CARE 2/55MIN Diagnoses Transient ischemic attack (TIA) G45.9 CAD (coronary artery disease) I25.10 History of pulmonary embolism Z86.711 Open wound of left ankle, initial encounter S91.002A Encounter type: initial encounter Diabetes E11.9 Time Spent (min) 75 (4) Open wound of left ankle Encounter type: initial encounter Qualified Code(s): S91.002A - Unspecified open wound, left ankle, initial encounter
--- NOTE | 2024-03-15 13:09 | Electrocardiogram Report ---
Test Reason : Blood Pressure : */* mmHG Vent. Rate : 84 BPM Atrial Rate : 84 BPM P-R Int : 172 ms QRS Dur : 126 ms QT Int : 396 ms P-R-T Axes : 47 -15 4 degrees QTcB Int : 467 ms Normal sinus rhythm Right bundle branch block Inferior infarct (cited on or before 09-Oct-2016) Abnormal ECG When compared with ECG of 13-Oct-2016 22:39, Right bundle branch block is now Present Confirmed by Allen Du ([id number]) on 03/15/2024 1:09:01 PM Referred By: REFERRED SELF Confirmed By: Allen Du
[2024-03-15] MEDS: CLOPIDOGREL BISULFATE 300 MG TAB PO ONE (13:22)
[2024-03-15] MEDS: GADOBUTROL 7.5ML VIAL IV ONE (14:42)
[2024-03-15] MEDS ORDERED: PHARMACIST DISCHARGE MED REC CONSULT PRN (15:07)
[2024-03-15] MEDS ORDERED: NITROGLYCERIN SL 0.4 MG/TAB TAB SL PRN (15:07)
--- NOTE | 2024-03-15 15:24 | Magnetic Resonance Report ---
MRI BRAIN WITH and WITHOUT CONTRAST TECHNIQUE: An MRI examination of the brain was performed utilizing sagittal and axial T1-weighted images as well as axial T2-weighted, FLAIR, gradient echo and diffusion-weighted images. Postcontrast T1-weighted images were also acquired in axial and sagittal planes. IV CONTRAST: 8 mL of Gadavist was intravenously administered. INDICATION: Altered mental status COMPARISON: Brain CT and CT angiography of the head and the neck from the same day. FINDINGS: Cerebral volume loss with expected ex vacuo dilatation of the basilar cisterns are prominent sulci. The ventricles are enlarged to a degree that is somewhat out of proportion to the surrounding cerebral volume loss with crowding of the gyri near the vertex. There is no evidence of intracranial mass lesion, infarct, extra-axial fluid collection, restricted diffusion or parenchymal hemorrhage. There is no suspicious parenchymal or extra-axial enhancement. Periventricular and subcortical white matter T2/FLAIR hyperintensities are nonspecific but are typically seen in the setting of chronic small vessels ischemic changes. The cerebellar tonsils are normal in position. The pituitary gland is not enlarged. The major arterial vascular structures of the skull base are patent. No intraorbital soft tissue mass lesion is observed. Mucosal thickening of the left greater than right maxilla sinuses as well as ethmoid sinuses and the left frontal sinus. The mastoids are aerated. IMPRESSION: No acute intracranial process or suspicious enhancement detected. 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 Electronically signed by Evgeny Wong 03-15-2024 3:22 PM
[2024-03-15] MEDS ORDERED: ACETAMINOPHEN 325 MG TAB PO PRN (19:58)
[2024-03-15] MEDS ORDERED: GABAPENTIN 300 MG CAP PO PRN (20:00)
[2024-03-15] MEDS: EZETIMIBE 10 MG TAB PO SCH (23:15)
[2024-03-15] MEDS: hydroCHLOROthiazide 25 MG TAB PO SCH (23:16)
[2024-03-15] MEDS: METOPROLOL SUCC 50MG EXT REL TAB PO SCH (23:16)
[2024-03-15] MEDS: TAMSULOSIN HCL 0.4 MG CAP PO SCH (23:16)
[2024-03-15] MEDS: ASPIRIN 81 MG ECTAB PO SCH (23:16)
[2024-03-16 06:00] LABS: Basophils # (auto) 0.03 K/uL (0.00-0.20); Basophils % (auto) 0.4 %; Eosinophils # (auto) 0.24 K/uL (0.00-0.50); Eosinophils % (auto) 3.4 %; Hematocrit (blood only) 47.3 % (42.0-52.0); Hemoglobin 16.6 g/dl (14.0-18.0); Immature Granulocytes # (auto) 0.03 K/uL (0.01-0.20); Immature Granulocytes % (auto) 0.4 %; Lymphocytes # (auto) 1.22 K/uL (1.20-3.40); Lymphocytes % (auto) 17.3 %; Mean Corpuscular Hemoglobin 30.5 pg (25.0-34.0); Mean Corpuscular Hgb Conc 35.1 g/dL (32.0-36.0); Mean Corpuscular Volume 86.8 fL (80.0-100.0); Monocytes # (auto) 0.46 K/uL (0.11-0.59); Monocytes % (auto) 6.5 %; Neutrophils # (auto) 5.09 K/uL (1.40-6.50); Platelet Count 160 K/uL (130-400); RDW Coefficient of Variation 13.4 % (11.5-14.5); RDW Standard Deviation 42.2 fL (36.4-46.3); Red Blood Count 5.45 M/uL (4.70-6.10); White Blood Count 7.07 K/ul (4.8-10.8)
[2024-03-16 06:14] LABS: Calcium 8.9 mg/dl (8.6-10.3); Chol HDL Ratio 4.2 (0-5); Creatinine Clr Calc Pharmacy 74.1 ml/min; Potassium 3.9 mmol/L (3.5-5.1)
[2024-03-16 07:51] LABS: Estimated Average Glucose 123 mg/dl; Hemoglobin A1C 5.9 % (4.5-5.6)
[2024-03-16 08:02] VITALS: RESP 18
[2024-03-16] MEDS: POTASSIUM CITRATE 10 MEQ TAB PO SCH (08:40)
[2024-03-16] MEDS: CLOPIDOGREL BISULFATE 75 MG TAB PO SCH (08:40)
[2024-03-16] MEDS: ENOXAPARIN INJ 40 MG/0.4 ML SYR SQ SCH (08:40)
[2024-03-16] MEDS ORDERED: GABAPENTIN 300 MG CAP PO SCH (09:00)
[2024-03-16] MEDS ORDERED: EZETIMIBE 10 MG TAB PO SCH (09:00)
[2024-03-16] MEDS ORDERED: ASPIRIN 81 MG ECTAB PO SCH (09:00)
[2024-03-16] MEDS ORDERED: METOPROLOL SUCC 50MG EXT REL TAB PO SCH (09:00)
[2024-03-16] MEDS ORDERED: hydroCHLOROthiazide 25 MG TAB PO SCH (09:00)
[2024-03-16] MEDS ORDERED: TAMSULOSIN HCL 0.4 MG CAP PO SCH (09:00)
--- NOTE | 2024-03-16 10:02 | XCELERA ---
[id number] \\[id number]
--- NOTE | 2024-03-16 10:04 | Neurology Consultation ---
Date of Consultation March 16, 2024 Assessment & Plan (1) Transient ischemic attack (TIA): Plan 78-year-old male presenting with probable recurrent TIA, notably with an episode of expressive aphasia, in the context of recurrent episodes of dizziness and none localizable weakness although may have had 1 episode of right upper limb weakness. No vascular abnormality identified on CTA of the head and neck. No history of atrial fibrillation. Stroke risk factors include hypertension, diabetes, hyperlipidemia. Agree with dual antiplatelet therapy, aspirin and Plavix for 3 weeks. Would then discontinue aspirin in favor of monotherapy with Plavix, 75 mg/day. Continue with Zetia and his antihypertensives. Unable to tolerate statins due to myalgia. May allow for permissive hypertension acutely, systolic blood pressure 140 mmHg to 160 mmHg. Follow-up with results of echocardiogram. Would recommend ambulatory cardiac monitoring as well. Patient may want to touch base with cardiology before he leaves [facility]. This patient does not have signs or symptoms suggestive of normal pressure hydrocephalus. Brain MRI findings consistent with cerebral atrophy as well as an element of hydrocephalus ex vacuo. He does not have gait apraxia, urinary incontinence, or significant cognitive decline. Patient should not require additional outpatient neurology follow-up. Please call with any questions. History of Present Illness Reason for Consultation: TIA, NPH? Requesting Physician: Whitney Attending Physician: Lopez Savage History of Present Illness The patient is an 78-year-old male who is known to me, I had seen him about 7 years ago for cervical spinal stenosis that did not require surgical intervention. 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 He presented to the emergency department yesterday further assessment of several episodes of dizziness, weakness, and an episode of expressive aphasia. These episodes lasted about 10 to 15 minutes and began 2 days prior to admission. He has had 4 discrete episodes. First episode occurred while standing and reaching overhead with his right, primarily dizziness and weakness at that time. The second episode occurred the following morning while getting ready for work, again had dizziness, but also had some difficulty with expressive speech, resolved in less than 10 minutes, went to work, had another episode of dizziness with inability to move or walk, came to the emergency department after this episode. Patient reports she had another similar episode after getting his MRI completed yesterday. Since that episode, he has not had any symptomatic recurrence. Currently feels fine, no headache, vision complaint, no vertigo. Denies any similar symptoms over the previous year. No difficulty with baseline gait or ambulatory function, no difficulty with bladder control or urinary incontinence. No significant cognitive symptoms. 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 Allergies Allergy/AdvReac Type Severity Reaction Status Date / Time simvastatin AdvReac Mild myalgia Verified 03/15/24 11:57 Home Medications Medication Instructions Recorded Confirmed Type metoprolol succinate 50 mg 50 mg PO DAILY #90 tabs 02/24/19 03/15/24 History tablet,extended release 24 hr aspirin 81 mg tablet,delayed 81 mg PO DAILY 02/27/19 03/15/24 History release (Kimberlee Low Dose Aspirin) potassium citrate 15 mEq (1,620 0 meq PO ONCE 02/27/19 03/15/24 History mg) tablet,extended release vitamin B complex (B 1 tab PO DAILY 02/27/19 03/15/24 History Complex-Vitamin B12 tablet) hydrochlorothiazide 25 mg tablet 25 mg PO DAILY #90 tabs 11/05/19 03/15/24 Rx ezetimibe 10 mg tablet 10 mg PO DAILY 11/29/20 03/15/24 History nitroglycerin 0.4 mg sublingual 0.4 mg sublingual Q5M PRN chest 02/18/21 03/15/24 Rx tablet pain #100 tabs silodosin 8 mg capsule 8 mg PO DAILY #90 caps 09/12/23 03/15/24 Rx tadalafil 10 mg tablet 10 mg PO DAILY PRN sexual activity 09/12/23 03/15/24 Rx #30 tabs tadalafil 5 mg tablet 5 mg PO DAILY #90 tabs 09/12/23 03/15/24 Rx gabapentin 300 mg capsule 300 mg PO DAILY #30 caps 03/05/24 03/15/24 Rx finasteride 1 mg tablet 1 mg PO DAILY 03/15/24 03/15/24 History Patient History Surgical History History of arthroplasty of left hip History of tonsillectomy History of carpal tunnel repair History of prostate biopsy History of hip replacement History of hemorrhoidectomy History of heart artery stent Family History Mother Diabetes Heart disease Denies family history of Ovarian cancer Prostate cancer Breast cancer Lung cancer Colorectal cancer Social History Smoking Status: Never smoker Second Hand Exposure: No; Do You Dip or Chew Tobacco: No; Hx Alcohol Use: No Hx Substance Use: No Preferred Language: Kyrgyz Communication Ability: Effective Visual Impairment: Limited Hearing Ability: Normal Lead Generation Representative Required: No Beliefs That Will Affect Care: None marital status: Current Living Situation: Spouse current occupational status: employed 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 How many Children do You have: 0 Feels Safe at Home: Yes Childhood Exposure to Second-Hand Smoke: No caffeine: Yes (coffee 1-2 a day ) Dental Care, Regularly: Yes Physical Activity Frequency: Daily Seatbelt Use: always Sunscreen Use: Yes (occassional ) Assistive Devices: Glasses Review of Systems Constitutional: no fever and no chills Eyes: no blind spots and no diplopia Ear, Nose, Mouth, Throat: no hearing loss Respiratory: no cough and no dyspnea Cardiovascular: no chest pain and no palpitations Gastrointestinal: no nausea and no vomiting Genitourinary: no urinary incontinence Musculoskeletal: no myalgia Integumentary: no rash and no lesions Neurologic: as per Subjective / HPI Psychiatric: no depression and no anxiety Hematologic / Lymphatic: no easy bleeding and no easy bruising Exam (Neuro) Constitutional: well developed and well nourished; no acute distress Eyes: normal visual davidson by confrontation, PERRL, normal accommodation and EOM intact bilaterally; no nystagmus Neurologic: Oriented to:: Person, Place and Time Memory: Short Term Intact and Remote Intact Attention: Span Intact and Concentration Intact Language: Naming Objects and Repeating Phrases Speech Fluency: negative Dysarthria Speech Aphasia: negative Aphasia Fund of Knowledge: Current Events, Past History and Vocabulary Cranial Nerves: Normal II (Visual davidson full to confrontation, visual acuity normal), III, IV, (Pupils equal round reactive to light and accommodation, eye movements normal), V (Facial sensation intact), VII (There is no facial droop or weakness), VIII (Hearing intact), IX, X (Palate elevates to midline), XI (Shoulder shrug intact) and XII (Tongue protrudes to midline) Motor Strength: Normal Lower Extremities and Normal Upper Extremities; negative Pronator Drift Motor Tone: Normal Lower Extremities and Normal Upper Extremities Muscle Bulk/Involuntary Movements: No Involuntary Movements; negative Muscle Atrophy Sensation: Light Touch Intact, Pain/Temperature Intact, Vibration Intact and Proprioception Intact Coordination: Normal; negative Limited Balance, Dysdiadochokinesia, Finger-Nose Abnormal or Heel-Hickey Abnormal Deep Tendon Reflexes: Rt Triceps: 2+, Lt Triceps: 2+, Rt Biceps: 2+, Lt Biceps: 2+, Rt Brachioradialis: 2+, Lt Brachioradialis: 2+, Rt Patellar: 2+, Lt Patellar: 2+, Rt Ankle: 2+ and Lt Ankle: 2+ Special Tests: negative Babinski Present Gait: Normal Station and Gait Results & Data Vital Signs (Past 12 Hours) Vital Signs Temp Pulse Pulse Resp BP Pulse Ox O2 Del Method 03/16/24 09:35 65 03/16/24 08:01 36.6 C 65 18 165/87 H 97 Room Air 03/16/24 04:01 36.5 C 57 L 16 144/69 H 94 Room Air 03/16/24 01:09 65 03/15/24 23:15 36.6 C 70 16 166/70 H 97 Room Air Laboratory Results WBC 7.07, hemoglobin 16.6, hematocrit 47, platelet count 160, sodium 138, potassium 3.9, BUN 20, creatinine 0.77, glucose 131, hemoglobin A1c 5.9, calcium 8.9, magnesium 1.6, AST 18, ALT 19, high-sensitivity troponin 27.8, triglycerides 254, cholesterol 175, LDL 82, VLDL 51, HDL [address] of the head completed yesterday was negative for hemorrhage or acute process, there is cerebral atrophy. CTA of the head and neck unremarkable. No vascular lesion. MRI of the brain revealed cerebral atrophy and chronic microvascular ischemic disease. There are some associated central atrophy with ventricular enlargement, although not highly suggestive of normal pressure hydrocephalus. I independently reviewed these images. Electrocardiogram reveals a normal sinus rhythm, right bundle branch block Coding Level of Care Code 13100 INT INP/OBS CARE 3/75MIN Diagnoses Transient ischemic attack (TIA) G45.9 Time Spent (min) 90 Comment Total time includes patient contact, chart review, counseling, note preparation
--- NOTE | 2024-03-16 11:35 | Cardiology Consultation ---
Date of Consultation March 16, 2024 Assessment & Plan (1) Transient ischemic attack (TIA): -Management per neurology. -Consider outpatient cardiac monitoring. -Agree with dual antiplatelet therapy as recommended by Dr. Valderrama. (2) CAD (coronary artery disease): -s/p LAD stent, July 2004. -Continue medical management. (3) Hypertension: -Permissive hypertension as per neurology consultation. (4) Hyperlipidemia: -Intolerant to statins. -Continue Zetia. History of Present Illness Attending Physician: Lopez Savage History of Present Illness Mr. Crespo is an 78-year-old male admitted yesterday with a TIA. This consultation was ordered to assist in his cardiac management. Of note, the patient is well-known to me from the outpatient setting. The patient was in his usual state of health until the morning of presentation. He had a 10-minute episode of dizziness, ataxia, and dysarthria at approximately 7 AM. Two hours later, his symptoms recurred. He then presented to the emergency room for further evaluation. Workup in the emergency room was unremarkable. He was admitted for observation. The patient does carry history of coronary artery disease having suffered an acute anterior myocardial infarction back in July 2004. This was complicated by a V-fib arrest. He eventually had stenting of the LAD. He has done well from a cardiac perspective since that time. He has had several echocardiographic stress test which have been normal. He does have yearly follow-up at the [facility]. The patient is active on a daily basis caring for his home and property. He also rides his bicycle 3 days each week while spending the cold weather months in the [facility]. He is careful to follow a heart healthy diet. Currently, patient is resting comfortably in the bedside chair. Past medical and surgical history 1. Coronary artery diseasesee above 2. LAD stentApril 2004 3. Hypertension 4. Hypercholesterolemia 5. RBBB 6. Diabetes mellitus 7. Asthma 8. Nephrolithiasis 9. History of pulmonary [id number] 10. Cervical radiculopathy 11. BPH 12. Erectile dysfunction 13. Vitamin D deficiency 14. Left THR 15. Tonsillectomy 16. Carpal tunnel release 17. 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 Allergies Allergy/AdvReac Type Severity Reaction Status Date / Time simvastatin AdvReac Mild myalgia Verified 03/15/24 11:57 Home Medications Medication Instructions Recorded Confirmed Type metoprolol succinate 50 mg 50 mg PO DAILY #90 tabs 02/24/19 03/15/24 History tablet,extended release 24 hr aspirin 81 mg tablet,delayed 81 mg PO DAILY 02/27/19 03/15/24 History release (Kimberlee Low Dose Aspirin) potassium citrate 15 mEq (1,620 0 meq PO ONCE 02/27/19 03/15/24 History mg) tablet,extended release vitamin B complex (B 1 tab PO DAILY 02/27/19 03/15/24 History Complex-Vitamin B12 tablet) hydrochlorothiazide 25 mg tablet 25 mg PO DAILY #90 tabs 11/05/19 03/15/24 Rx ezetimibe 10 mg tablet 10 mg PO DAILY 11/29/20 03/15/24 History nitroglycerin 0.4 mg sublingual 0.4 mg sublingual Q5M PRN chest 02/18/21 03/15/24 Rx tablet pain #100 tabs silodosin 8 mg capsule 8 mg PO DAILY #90 caps 09/12/23 03/15/24 Rx tadalafil 10 mg tablet 10 mg PO DAILY PRN sexual activity 09/12/23 03/15/24 Rx #30 tabs tadalafil 5 mg tablet 5 mg PO DAILY #90 tabs 09/12/23 03/15/24 Rx gabapentin 300 mg capsule 300 mg PO DAILY #30 caps 03/05/24 03/15/24 Rx finasteride 1 mg tablet 1 mg PO DAILY 03/15/24 03/15/24 History Patient History Surgical History History of arthroplasty of left hip History of tonsillectomy History of carpal tunnel repair History of prostate biopsy History of hip replacement History of hemorrhoidectomy History of heart artery stent Family History Mother Diabetes Heart disease Denies family history of Ovarian cancer Prostate cancer Breast cancer Lung cancer Colorectal cancer Social History Smoking Status: Never smoker Second Hand Exposure: No; Do You Dip or Chew Tobacco: No; Hx Alcohol Use: No Hx Substance Use: No Preferred Language: Icelandic Communication Ability: Effective Visual Impairment: Limited Hearing Ability: Normal Back Tender Required: No Beliefs That Will Affect Care: None marital status: Current Living Situation: Spouse current occupational status: employed 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 HEENT exam is negative. Neck reveals normal carotid upstrokes without bruits. Jugular venous pressure is flat at 90. There is no thyromegaly. Cardiovascular exam reveals a regular rhythm with a normal S1 and S2. Heart sounds are distant. No obvious murmurs. Lungs are clear without rales, rhonchi, or wheezes. Abdomen is soft without bruits. Extremities reveal intact radial artery pulses bilaterally. There is no peripheral edema. Results & Data Vital Signs (Past 12 Hours) Vital Signs Temp Pulse Pulse Resp BP Pulse Ox O2 Del Method 03/16/24 09:35 65 03/16/24 08:01 36.6 C 65 18 165/87 H 97 Room Air 03/16/24 04:01 36.5 C 57 L 16 144/69 H 94 Room Air 03/16/24 01:09 65 Laboratory Results CBC notes hemoglobin of 16.6, hematocrit 47.3, white count 7.1, and a platelet count of 160,000. Electrolytes noted sodium of 138, potassium 3.9, chloride 105, bicarb 27, BUN 20, creatinine 0.77, and a glucose of 131. Initial high- sensitivity troponin was 23 with a follow-up value of 28. LDL cholesterol is 82 with an HDL of 51. Diagnostic Findings Echocardiogram notes normal left ventricular systolic function with an ejection fraction of 55 to 60%. There is mild LVH and no valvular pathology. Compared with the study performed in July 2018, no significant change. EKG notes sinus rhythm with a complete right bundle branch block and an old inferior VT pattern. PG Care Time/CCT Total # of Minutes Spent Total Time Spent with Patient: Total time spent is greater than 50% in coordination of care (as documented) at patient's floor/unit and/or counseling patient: Coding Level of Care Code 34147 INT INP/OBS CARE 3MIN Diagnoses Transient ischemic attack (TIA) G45.9 CAD (coronary artery disease) I25.10 Hypertension I10 Hyperlipidemia E78.5
[2024-03-16 11:39] VITALS: BP 164/88; TEMP 97.5; O2SAT 96
[2024-03-16] MEDS ORDERED: STROKE PATIENT DISCHARGE STA (14:30)
[2024-03-16 14:36] VITALS: PULSE 76
--- NOTE | 2024-03-18 10:20 | Pharmacy Report ---
Pharmacist Stroke Counseling - Date of Service March 18, 2024 - Scope: Pharmacy has been consulted to provide medication discharge counseling for this patient admitted with [ischemic stroke] [hemorrhagic stroke] [transient ischemic attack] as per the Pharmacist Discharge Counseling for Stroke Patients Prot ocol. - Medications on Discharge: Home Medications Medication Instructions Recorded Confirmed metoprolol succinate 50 mg 50 mg PO DAILY #90 tabs 02/24/19 03/15/24 tablet,extended release 24 hr aspirin 81 mg tablet,delayed 81 mg PO DAILY 02/27/19 03/15/24 release (Kimberlee Low Dose Aspirin) potassium citrate 15 mEq (1,620 0 meq PO ONCE 02/27/19 03/15/24 mg) tablet,extended release vitamin B complex (B 1 tab PO DAILY 02/27/19 03/15/24 Complex-Vitamin B12 tablet) ezetimibe 10 mg tablet 10 mg PO DAILY 11/29/20 03/15/24 finasteride 1 mg tablet 1 mg PO DAILY 03/15/24 03/15/24 New Rx's Medication Instructions Recorded hydrochlorothiazide 25 mg tablet 25 mg PO DAILY #90 tabs 11/05/19 nitroglycerin 0.4 mg sublingual 0.4 mg sublingual Q5M PRN chest 02/18/21 tablet pain #100 tabs silodosin 8 mg capsule 8 mg PO DAILY #90 caps 09/12/23 tadalafil 10 mg tablet 10 mg PO DAILY PRN sexual activity 09/12/23 #30 tabs tadalafil 5 mg tablet 5 mg PO DAILY #90 tabs 09/12/23 gabapentin 300 mg capsule 300 mg PO DAILY #30 caps 03/05/24 clopidogrel 75 mg tablet 75 mg PO QAM #30 tabs 03/16/24 - Action: The above medications, specifically ones for stroke treatment/prophylaxis, have been reviewed in detail with the patient and/or patient outside industrial sales representative(s) prior to discharge. This includes indication, common adverse reactions, drug interactions, and medication administration. Medication counseling has been employed using the teach-back method to ensure understanding. - Outcome: The patient and/or patient outside industrial sales representative(s) have demonstrated understanding of the medications. Additional comments: Spoke with Mr. Crespo regarding the change in his medications. He stated that he was able to steel pickler his clopidogrel from his pharmacy and is currently taking it a long with his baby aspirin. He was aware that he was to continue both medications for 3 weeks and then stop the aspirin. I reviewed the medications and potential side effects. He expressed understanding as he had previously been on plavix so he was familiar with the medication. Thank you for allowing pharmacy to be involved in the care of this patient. Please call [phone] with any additional questions
--- NOTE | 2024-03-20 20:33 | Discharge Summary ---
Discharge Summary Date of Service March 16, 2024 Principal Dx & Hospital Course #1 = Principal Diagnosis (1) Transient ischemic attack (TIA): Presenting w/ dizziness and slurred speech that started the day of arrival at 0700, lasting 10 minutes and resolving, recurring at 0900 x 10 minutes then resolving again; No neuro deficits on exam, no current symptoms. 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 No vascular abnormality identified on CTA of the head and neck. No history of atrial fibrillation. Stroke risk factors include hypertension, diabetes, hyperlipidemia. Agree with dual antiplatelet therapy, aspirin and Plavix for 3 weeks. Would then discontinue aspirin in favor of monotherapy with Plavix, 75 mg/day. Continue with Zetia and his antihypertensives. Unable to tolerate statins due to myalgia. May allow for permissive hypertension acutely, systolic blood pressure 140 mmHg to 160 mmHg. Follow-up with results of echocardiogram. Would recommend ambulatory cardiac monitoring as well. Patient may want to touch base with cardiology before he leaves for [facility] later this month. This patient does not have signs or symptoms suggestive of normal pressure hydrocephalus. Brain MRI findings consistent with cerebral atrophy as well as an element of hydrocephalus ex vacuo. He does not have gait apraxia, urinary incontinence, or significant cognitive decline. Patient can be discharged. 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 - No current symptoms of chest pain - EKG normal sinus, rate around 85 - Troponin 23 - Medications metoprolol, hydrochlorothiazide for HTN - Hypertensive on exam but did not take AM medications (3) History of pulmonary embolism: In 2017, s/p 3 months hip replacement when it occurred - Was on Xeralto x 6 months, now just aspirin daily 81mg (4) Open wound of left ankle: Stable, currently in dressing - Left medial ankle, secondary to trauma - Follows with wound clinic, most recent visit 03/07/2024 - Wound care prn (5) Diabetes: H/o DMT2 - At home regimen metformin 500 twice daily - hold - Most recent A1C 5.9%, pending repeat - No SSI or checks for now; if prolonged stay then add SSI - T2DM diet (+ heart healthy) Plan Elevated troponin- 23, EKG w/o ischemic changes and no current symptoms BPH- Hold finasteride bc not carried in pharmacy Admission HPI Per Admitting Provider 78-year-old male presenting for slurred speech starting at 0700, associated loss of balance. ED course: CBC grossly WNL, PT/INR WNL, CMP Na 135, BUN 28.8, albumin 5.7, globulin 2.0; calcium 8.5, magnesium 1.6; troponin 23.0; UA negative for infection; head CT with cerebral atrophy, no acute changes; head CTA no angiographic abnormality in the head, mild bilateral chronic maxillary sinusitis L >R; neck CTA no significant angiographic abnormality in the neck, chronic maxillary sinusitis; EKG normal sinus rate around 85 bpm, RBBB. Telestroke consulted, no indications for TNK. 78-year-old male PMHx of PE only on ASA, HTN, HLD, DM, CAD, and asthma presenting for neurological deficits starting this a.m. 0700. Patient states that initially the symptoms were 2 days [employer] where he was going to turn on a stereo, and when reaching with his right arm noticed that he could not reach because his arm would not move. [place] dizzy at the same time. Symptoms resolved within 10 minutes, and did not recur until the day of arrival at 0700. States that he started to have dizziness and a little confusion. Informed his , who states that his speech sounded off and he was not making a lot of sense. Symptoms had then again resolved in less than 10 minutes, the patient decided to try to go to work. At 0900 the symptoms recurred with dizziness and inability to move his body. States that it was not necessarily weakness that was causing him to not be unable to move, but he just could not move to the chair nearby to sit down. Called his who encouraged him to come to ED, and presents with him today. Denies any LOC, headache, vision changes, falls, chest pain, or abnormal numbness/tingling. Reports that he always has numbness/tingling in his left arm, but this has not worsened at all. Not having weakness per se, just dizziness as though he is off balance. States that he believes he had an episode like this happen back in December, but it was never worked up and it did not recur until 2 days [employer]. Patient took 1 baby aspirin this morning. Patient did not take regular a.m. medications. Please see Dr. Olson's attestation for adjustments/additions to treatment plan. Discharge Exam Constitutional WD/WN, vitals as above Neurologic PERRL, EOMI, accommodation nl, no face palsy, no dysarthria Discharge Plan Discharge Items Patient Disposition: Home - Self-Care Reason For Visit: TIA Discharge Diagnosis: TIA Activity: Resume your previous activity Non-emergency contact: Primary Care Provider Call non-emergency contact if: you have any medication questions Follow-up/Referrals: Leyla Dumont, [Primary Care Provider] - Diet: Carb Consistent or DM2 and Heart Healthy Addtl Attending Provider Instructions: Recommend followup with PCP in 1-2 weeks. Agree with dual antiplatelet therapy, aspirin and Plavix for 3 weeks. Then stop after 3 weeks, stop aspirin but continue plavix. Risk Factors for Stroke: You can reduce your chances of stroke by working with your medical provider to adopt a healthy lifestyle. Some specific ways to lower your chance of stroke are: * If you are a smoker, now is the time to stop smoking cigarettes * If you are diabetic, improve the control of your blood sugars * Avoid excessive amounts of alcohol * Control high blood pressure * Lose weight if you are overweight * Be sure to lead an active lifestyle * Eat a healthy diet low in salt, cholesterol and fat You should know about other risk factors for stroke that you are unable to control. These include: * Age 55 years or older * Male gender * Certain racial groups: , or / * Family History of Stroke, Mini stroke or Heart Attack * Sickle Cell Disease Follow Up: It is important for you to keep your follow up appointments with your medical provider. Who to Call and When: Medical Emergencies: Call 911 immediately if you experience any of the following warning signs and symptoms of Stroke: * Sudden numbness or weakness of the face, arm or leg, especially on one side of the body * Sudden confusion, trouble speaking or understanding * Sudden trouble seeing in one or both eyes * Sudden trouble walking, dizziness, loss of balance or coordination * Sudden severe headache with no cause Do not delay calling 911 if you experience any warning signs or symptoms of a stroke. Delay in seeking medical attention may affect what treatments can be given to you. . Pending Studies at Discharge: No Stand-Alone Forms: My [facility], Smoking Cessation, Medications to Prevent Stroke Medications and DC Order Prescriptions: New clopidogrel 75 mg Tablet 75 mg PO QAM Qty: 30 0RF Continued nitroglycerin 0.4 mg tablet, sublingual 0.4 mg SL Q5M PRN (Reason: chest pain) Qty: 100 3RF Rx Instructions: Unable to verify w/ patient/pharmacy at this date/time. metoprolol succinate 50 mg tablet extended release 24 hr 50 mg PO DAILY Qty: 90 potassium citrate 15 mEq tablet extended release 0 meq PO ONCE Rx Instructions: Unable to verify w/ patient/pharmacy at this date/time. Original Directions: 15meq by mouth once aspirin [Kimberlee Low Dose Aspirin] 81 mg tablet,delayed release (DR/EC) 81 mg PO DAILY Rx Instructions: Unable to verify OTC meds at this date/time. vitamin B complex [B Complex-Vitamin B12] tablet 1 tab PO DAILY Rx Instructions: Unable to verify OTC meds at this date/time. hydrochlorothiazide 25 mg tablet 25 mg PO DAILY Qty: 90 1RF ezetimibe 10 mg tablet 10 mg PO DAILY tadalafil 10 mg tablet 10 mg PO DAILY PRN (Reason: sexual activity) Qty: 30 4RF Rx Instructions: administer approximately 30min before sexual activity; do not use more than 1 dose per 24hrs tadalafil 5 mg tablet 5 mg PO DAILY Qty: 90 3RF silodosin 8 mg capsule 8 mg PO DAILY Qty: 90 3RF gabapentin 300 mg capsule 300 mg PO DAILY Qty: 30 2RF finasteride 1 mg tablet 1 mg PO DAILY Discharge Orders: Discharge Order (Routine); Ordered 03/16/24 Ordered By: Lopez Fritz/Other Patient Handouts: A1C, Anticoagulants, What Is a TIA?, Discharge Instructions for Stroke, ED TIA: Transient Ischemic Attack Admission Data Admit Date/Time: 03/15/24 11:40 Attending Provider: Lopez Savage Admit Provider: Melvin Olson Primary Care Provider: Leyla Dumont Other Providers: Alberto Valderrama Other Interventions: Discharge Summary Assessment (RN) Last Done: 03/16/24 14:31 Hospital Stay Data Consultations 03/15/24 10:54 ED Decision to Admit Stat 03/15/24 18:02 Consult Neurology Routine Diagnostic Imagining Performed 03/15/24 09:27 CT angio head w con Stat CT angio neck with con Stat CT head/brain wo con Stat 03/15/24 12:57 MRI Brain [MR brain wo/w con] Urgent Pending Results Patient Have Any Pending Studies at Discharge: No Discharge Instructions Given to Patient (Per Discharging Provider) Recommend followup with PCP in 1-2 weeks. Agree with dual antiplatelet therapy, aspirin and Plavix for 3 weeks. Then stop after 3 weeks, stop aspirin but continue plavix. Risk Factors for Stroke: You can reduce your chances of stroke by working with your medical provider to adopt a healthy lifestyle. Some specific ways to lower your chance of stroke are: * If you are a smoker, now is the time to stop smoking cigarettes * If you are diabetic, improve the control of your blood sugars * Avoid excessive amounts of alcohol * Control high blood pressure * Lose weight if you are overweight * Be sure to lead an active lifestyle * Eat a healthy diet low in salt, cholesterol and fat You should know about other risk factors for stroke that you are unable to control. These include: * Age 55 years or older * Male gender * Certain racial groups: , or / * Family History of Stroke, Mini stroke or Heart Attack * Sickle Cell Disease Follow Up: It is important for you to keep your follow up appointments with your medical provider. Who to Call and When: Medical Emergencies: Call 911 immediately if you experience any of the following warning signs and symptoms of Stroke: * Sudden numbness or weakness of the face, arm or leg, especially on one side of the body * Sudden confusion, trouble speaking or understanding * Sudden trouble seeing in one or both eyes * Sudden trouble walking, dizziness, loss of balance or coordination * Sudden severe headache with no cause Do not delay calling 911 if you experience any warning signs or symptoms of a stroke. Delay in seeking medical attention may affect what treatments can be given to you. . Total Time Total Time Spent Total Time Spent (In Minutes): 32 Coding Level of Care Code 36322 INP/OBS DISCH >30 MIN Diagnoses Transient ischemic attack (TIA) G45.9 CAD (coronary artery disease) I25.10 History of pulmonary embolism Z86.711 Open wound of left ankle, initial encounter S91.002A Encounter type: initial encounter Diabetes E11.9
== END 2024-03-16 15:51 | disposition home or self-care (01) ==
LOC: ED 09:15 → 2W 09:15 → SUATTDRO 11:40 → 2W 14:42